=== PATIENT | male | born 1945 | race Caucasian/White ===

== ENCOUNTER 2018-03-26 20:50 | Observation (INO) ==
[2018-03-26 21:30] LABS: Basophils % 0.6 % (0.1-2.0); Eosinophils # 0.5 K/mm3 (0.0-0.4); Hematocrit 46.9 % (42.0-52.0); Hemoglobin 14.8 g/dL (14.1-18.0); Lymphocytes # 2.1 K/mm3 (0.7-4.5); Lymphocytes % 27.6 K/mm3 (10-50); Mean Corpuscular HGB Conc 31.5 g/dL (31.8-35.4); Mean Corpuscular Hemoglobin 30.5 pg (27.0-31.2); Mean Corpuscular Volume 96.8 fl (80-94); Mean Platelet Volume 7.5 fl (7.4-10.4); Monocytes # 0.7 K/mm3 (0.1-1.0); Monocytes % 9.7 % (1.7-9.3); Neutrophils # 4.3 K/mm3 (1.8-7.8); Neutrophils % 56.2 % (37.0-80.0); Platelet Count 311 K/mm3 (142-424); Red Blood Count 4.84 M/mm3 (4.60-6.20); Red Cell Distribution Width 13.3 % (11.5-17.5); White Blood Count 7.7 K/mm3 (4.8-10.8)
[2018-03-26 21:59] LABS: Microscopic, Urine URINE MICROSCOPIC (MICROSCOPIC)
[2018-03-26 21:59] LABS: Carbon Dioxide 27 mmol/L (21.0-32.0); Chloride 102 mmol/L (98-107); Creatine Kinase 106 U/L (39-308); Sodium 139 mmol/L (136-145)
[2018-03-26 22:00] LABS: Acetaminophen 0 ug/mL (10-30); Alanine Aminotransferase 36 U/L (12-78); Albumin Level 3.4 gm/dL (3.4-5.0); Albumin/Globulin Ratio 0.8 (1.1-1.8); Alkaline Phosphatase 178 U/L (46-116); Aspartate Amino Transferase 25 U/L (15-37); Bilirubin,Total 0.4 mg/dL (0.2-1.0); Blood Urea Nitrogen 21 mg/dL (7-18); Calcium 8.8 mg/dL (8.5-10.1); Ethyl Alcohol 0 mg/dL (0-99); Globulin 4.1 gm/dl (1.3-3.2); Glucose 139 mg/dL (74-106); Total Protein,Serum 7.5 gm/dL (6.4-8.2)
[2018-03-26 22:07] LABS: Amphetamine/Metha Screen,Urine Negative ng/mL (<1000); Barbiturates Screen,Urine Negative ng/mL (<200); Benzodiazepines Screen,Urine Positive ng/mL (200); Cannabinoid Screen,Urine Positive ng/mL (<50); Cocaine Screen,Urine Negative ng/g (<300); Methadone Screen,Urine Negative ng/mL (<300); Opiate Screen,Urine Negative ng/mL (<300); Phencyclidine Screen,Urine Negative ng/mL (<25)
[2018-03-26 22:09] LABS: Appearance,Urine CLEAR (Clear); Bilirubin,Urine Negative (Negative); Blood, Urine Negative (Negative); Color,Urine YELLOW (Yellow); Glucose,Urine (UA) Negative (Negative); Ketones,Urine Negative (Negative); Leukocyte Esterase,Urine Negative (Negative); PH,Urine 6.5 (5.0-8.5); Protein,Urine Negative (Negative); RBC,Urine Occasional #/hpf (0-3); Urobilinogen,Urine 0.2 EU/dl (0.2); WBC,Urine Occasional #/hpf (0-3)
[2018-03-26 22:10] LABS: Bacteria,Urine 1+ /lpf
[2018-03-26 23:14] LABS: Free T4 (Free Thyroxine) 1.01 ng/dl (0.76-1.46); Thyroid Stimulating Hormone 1.91 uIU/ml (0.358-3.740)
[2018-03-27 06:20] LABS: Eosinophils # 0.2 K/mm3 (0.0-0.4); Lymphocytes # 1.4 K/mm3 (0.7-4.5); Monocytes # 0.5 K/mm3 (0.1-1.0); White Blood Count 6.5 K/mm3 (4.8-10.8)
--- NOTE | 2018-03-27 06:27 | History & Physical Report ---
*Admission Date: 03/26/18 *Chief complaint: Mental status changes/confusion *History of present illness: 72-year-old white male with minimal past medical history who presented to the hospital after 7 hours of increasing lesion and lethargy, brought in by his . He and his had been to [place] with her daughter attending a tertiary care cancer center for their daughter's follow-up, and they returned earlier this week and he began to feel ill, with viral symptoms. He has been taking some [id number]-cxoqfid cough and cold products with Sudafed-containing ingredients, and has progressively felt tired and sluggish. His went to a community event last night, and when she returned home he was "out of it" and was minimally arousable. Brought to the emergency department. He states that he does not remember about 7 hours yesterday. In the emergency department he began to feel better with IV fluids. Noted to have minimal creatinine elevation. Admitted to hospital for further observation. CT scan of head was reportedly normal. Other labs unremarkable although UDS does show THC, addition to his benzodiazepine which seems to reflect his prescribed alprazolam which he has used for many years. [facility] History Medical History: Reports:: Coronary Artery Disease, Hypertension, MRSA Denies:: Cancer, Diabetes Mellitus Type 1, Diabetes Mellitus Type 2 Other Medical History: Reports: Thyroid Disease Other Surgeries: Yes: Other (BIOPSY VOCAL CHORD) Amputation: No Fractures: No - *Social History Educational Level: Completed Graduate School Smoking Status: Never smoker Alcohol Intake: current Alcohol Intake Frequency:: a few times a week Occupational Status: unemployed Housing: house Household Members: significant other - Psychiatric History Expresses thoughts of harming self/others: None Suicide Plan Description: No Plan *Family Hx:: Asthma, Coronary Artery Disease, Heart Attack, Hyperlipidemia, Hypertension, Stroke, Thyroid Disorder Review of Systems - Constitutional Reports daytime sleepiness, Reports lack of energy, Denies anorexia, Denies body ache(s), Denies chills - Eyes Denies blind spots, Denies blurry vision, Denies change in vision - ENT Denies abnormal hearing, Denies change in voice - *Cardiovascular Denies chest pain, Denies chest pain at rest, Denies shortness of breath, Denies shortness of breath with activity, Denies irregular heart rhythm - *Respiratory Reports chest congestion, Reports cough, Denies change in phlegm color, Denies shortness of breath, Denies shortness of breath with activity, Denies excessive phlegm production - *Gastrointestinal Denies abdominal pain, Denies belching, Denies bloating - *Genitourinary Denies difficulty urinating - *Musculoskeletal Denies abnormal walking - Integumentary/Breasts Denies bleeding lesions - *Neurologic Reports confusion, Reports weakness, Denies localized weakness, Denies headache( s), Denies seizure-like activity Meds Home Medications Medication Instructions Recorded Confirmed Type ALPRAZolam [Xanax 0.5mg tab] 0.5 mg PO BIDP PRN 03/26/18 03/27/18 History hydroCHLOROthiazide [HCTZ 12.5mg 12.5 mg PO DAILY 03/26/18 03/27/18 History capsule] Levothyroxine Sodium 75 mcg PO DAILY 03/27/18 03/27/18 History [Levothyroxine 75mcg (0.075mg) Tab] dilTIAZem HCl [Diltiazem 240mg 240 mg PO DAILY 03/27/18 03/27/18 History 24Hr ER Cap] Allergies Allergy/AdvReac Type Severity Reaction Status Date / Time No Known Allergies Allergy Verified 03/26/18 20:57 Exam Vital signs and Labs for Last 24 Hours: Temp Pulse Resp BP Pulse Ox 97 F L 81 20 121/81 91 L 03/26/18 22:57 03/26/18 22:57 03/26/18 22:57 03/26/18 22:57 03/26/18 22:52 Laboratory Results - last 24 hr 03/26/18 21:00: WBC 7.7, RBC 4.84, Hgb 14.8, Hct 46.9, MCV 96.8 H, MCH 30.5, MCHC 31.5 L, RDW 13.3, Plt Count 311, MPV 7.5, Neut % (Auto) 56.2, Lymph % (Auto ) 27.6, [place] % (Auto) 9.7 H, Eos % (Auto) 6.0, Baso % (Auto) 0.6, Neut # (Auto) 4.3, Lymph # (Auto) 2.1, [place] # (Auto) 0.7, Eos # (Auto) 0.5 H, Baso # (Auto) 0.0 03/26/18 21:00: Sodium 139, Potassium 4.0, Chloride 102, Carbon Dioxide 27, Anion Gap 14.0, BUN 21 H, Creatinine 1.60 H, Estimated Creat Clear 55, Estimated GFR 43 L, Est GFR ( Amer) 52 L, Glucose 139 H, Calcium 8.8, Total Bilirubin 0.4, AST 25, ALT 36, Alkaline Phosphatase 178 H, Total Creatine Kinase 106, CK-MB (CK-2) 1.2, CK-MB (CK-2) Rel Index 1.1, Troponin I < 0.02, Total Protein 7.5, Albumin 3.4, Globulin 4.1 H, Albumin/Globulin Ratio 0.8 L, Salicylates 5.0, Acetaminophen 0 L, Plasma/Serum Alcohol 0 03/26/18 21:00: Lactic Acid 0.9 03/26/18 21:00: TSH 1.91, Free T4 1.01 03/26/18 21:55: Urine Color Yellow, Urine Appearance Clear, Urine pH 6.5, Ur Specific [place] 1.020, Urine Protein Negative, Urine Glucose (UA) Negative, Urine Ketones Negative, Urine Blood Negative, Urine Nitrate Negative, Urine Bilirubin Negative, Urine Urobilinogen 0.2, Ur Leukocyte Esterase Negative, Urine RBC Occasional, Urine WBC Occasional, Ur Squamous Epith Cells 3-5, Urine Bacteria 1+, Hyaline Casts 3-5 03/26/18 21:55: Urine Opiates Screen Negative, Ur Barbituates Screen Negative, Ur Phencyclidine Scrn Negative, Ur Amphetamines Screen Negative, U Methamphetamines Scrn Negative, U Benzodiazepines Scrn Positive H, Urine Cocaine Screen Negative, U Marijuana (THC) Screen Positive H 03/26/18 23:55: Troponin I < 0.02 03/27/18 02:10: Troponin I < 0.02 I & O for Last 24 hours: Intake & Output 03/24/18 03/25/18 03/26/18 03/27/18 11:59 11:59 11:59 11:59 Intake Total 1000 / 1000 Balance 1000 / 1000 Weight 200 lb Narrative: This morning patient is awake, pleasant. Oriented 3. Cranial nerves intact. Patient does have nasal drainage and hoarseness consistent with upper respiratory infection. Lungs are clear, heart rate regular. Abdomen soft and nontender. No edema or clubbing. Moves all extremities well. No skin rash. Neck is supple. Negative Kernig's and Brudzinski's sign H&P: Result - Labs Labs: Short CBC 03/26/18 Range/Units 21:00 WBC 7.7 (4.8-10.8) K/mm3 Hgb 14.8 (14.1-18.0) g/dL Hct 46.9 (42.0-52.0) % Plt Count 311 (142-424) K/mm3 BMP 03/26/18 21:00 Sodium 139 Potassium 4.0 Chloride 102 Carbon Dioxide 27 BUN 21 H Creatinine 1.60 H Glucose 139 H Calcium 8.8 Cardiac Enzymes 03/26/18 03/26/18 03/27/18 Range/Units 21:00 23:55 02:10 Total Creatine Kinase 106 (39-308) U/L CK-MB (CK-2) 1.2 (0.0-3.6) ng/ml Troponin I < 0.02 < 0.02 < 0.02 (0.00-0.06) ng/ml Liver Function 03/26/18 Range/Units 21:00 Total Bilirubin 0.4 (0.2-1.0) mg/dL AST 25 (15-37) U/L ALT 36 (12-78) U/L Alkaline Phosphatase 178 H (46-116) U/L Albumin 3.4 (3.4-5.0) gm/dL Urine 03/26/18 Range/Units 21:55 Urine Color Yellow (Yellow) Urine Appearance Clear (Clear) Urine pH 6.5 (5.0-8.5) Ur Specific [place] 1.020 (1.005-1.030) Urine Protein Negative (Negative) Urine Glucose (UA) Negative (Negative) Assessment and Plan (1) Altered mental status Current visit: Yes Status: Acute Qualifiers: Altered mental status type: unspecified Qualified Code(s): R41.82 - Altered mental status, unspecified Category: Medical Code(s): R41.82 - Altered mental status, unspecified (2) Renal insufficiency Current visit: Yes Status: Acute Category: Medical Code(s): N28.9 - Disorder of kidney and ureter, unspecified - Assessment and plan all Dx Assessment and Plan for all problems:: Probably a combination of OTC cold medications, dehydration and URI symptoms. Await final report for CT scan. Await labs this morning. I have not discussed patient's THC positivity with him. His is currently in the room. I will bring this up before discharge.
[2018-03-27 06:32] LABS: Basophils % 0.4 % (0.1-2.0); Eosinophils % 2.9 % (0.1-12.0); Hematocrit 41.9 % (42.0-52.0); Hemoglobin 13.2 g/dL (14.1-18.0); Lymphocytes % 21.8 K/mm3 (10-50); Mean Corpuscular HGB Conc 31.5 g/dL (31.8-35.4); Mean Corpuscular Hemoglobin 30.9 pg (27.0-31.2); Mean Corpuscular Volume 98.1 fl (80-94); Mean Platelet Volume 7.6 fl (7.4-10.4); Monocytes % 7.7 % (1.7-9.3); Neutrophils # 4.4 K/mm3 (1.8-7.8); Neutrophils % 67.2 % (37.0-80.0); Platelet Count 267 K/mm3 (142-424); Red Blood Count 4.27 M/mm3 (4.60-6.20); Red Cell Distribution Width 13.2 % (11.5-17.5)
[2018-03-27 06:34] LABS: Anion Gap 16.5 mEq/L (5-15); Potassium 4.5 mmoL/L (3.5-5.1)
--- NOTE | 2018-03-27 09:21 | Pharmacy Consult Notes ---
[facility] Pharmacy VTE Monitoring - Patient Demographics Admission date: 03/27/18 Report Date: 03/27/18 Time: 09:21 Allergies/Adverse Reactions: Patient Allergies No Known Allergies Allergy (Verified 03/26/18 20:57) Height: 1.88 m Weight: 90.718 kg Patient Problems: Current Active Problems Altered mental status (Acute) Renal insufficiency (Acute) RBBB (right bundle branch block with left anterior fascicular block) (Acute) - VTE Risk Labs: VTE Related Lab Results Hgb 13.2 g/dL (14.1-18.0) L D 03/27/18 05:45 Hct 41.9 % (42.0-52.0) L 03/27/18 05:45 Plt Count 267 K/mm3 (142-424) 03/27/18 05:45 BUN 19 mg/dL (7-18) H 03/27/18 05:45 Creatinine 1.22 mg/dL (0.70-1.30) D 03/27/18 05:45 Estimated Creat Clear 72 mL/min (0-300) 03/27/18 05:45 VTE Risk Level: Low Risk - Prophylaxis Location of Applied Device: Bilateral Lower Extremeties (ELEANOR HOSE ORDERED)
[2018-03-27 16:18] VITALS: BP 126/76
--- NOTE | 2018-03-27 16:24 | Discharge Summary ---
General - General Admission date:: 03/26/18 Discharge date: 03/27/18 HPI HPI: 72-year-old white male with minimal past medical history who presented to the hospital after 7 hours of increasing lesion and lethargy, brought in by his . He and his had been to [place] with her daughter attending a tertiary care cancer center for their daughter's follow-up, and they returned earlier this week and he began to feel ill, with viral symptoms. He has been taking some [id number] cough and cold products with Sudafed-containing ingredients, and has progressively felt tired and sluggish. His went to a community event last night, and when she returned home he was "out of it" and was minimally arousable. Brought to the emergency department. He states that he does not remember about 7 hours yesterday. In the emergency department he began to feel better with IV fluids. Noted to have minimal creatinine elevation. Admitted to hospital for further observation. CT scan of head was reportedly normal. Other labs unremarkable although UDS does show THC, addition to his benzodiazepine which seems to reflect his prescribed alprazolam which he has used for many years. Hospital Course Hospital Course: Patient did well overnight after hydration. Creatinine improved to 1.2. Orthostatic vital signs were normal. Patient felt much better. Discharge exam noted as below. Patient will be discharged home, follow-up in my office in 48 hours with repeat labs. We will discuss his positive test for THC at that point. Objective Vital signs: Temp Pulse Resp BP Pulse Ox 98.1 F 69 16 126/76 95 03/27/18 12:08 03/27/18 16:00 03/27/18 16:00 03/27/18 16:00 03/27/18 16:00 Narrative: Patient is alert, oriented 3. Lungs are clear, some congested noted but no fevers. Oropharynx clear. Heart rate regular without murmurs. Moves arms and legs well. Not orthostatic. Walks well and without stumbling or ataxia per nurses report. Results Labs on day of discharge: Labs from last 24 hours 03/27/18 03/27/18 03/27/18 05:45 05:45 05:45 WBC 6.5 RBC 4.27 L Hgb 13.2 L D Hct 41.9 L MCV 98.1 H MCH 30.9 MCHC 31.5 L RDW 13.2 Plt Count 267 MPV 7.6 Neut % (Auto) 67.2 Lymph % (Auto) 21.8 [place] % (Auto) 7.7 Eos % (Auto) 2.9 Baso % (Auto) 0.4 Neut # (Auto) 4.4 Lymph # (Auto) 1.4 [place] # (Auto) 0.5 Eos # (Auto) 0.2 Baso # (Auto) 0.0 Sodium 146 H Potassium 4.5 Chloride 107 Carbon Dioxide 27 Anion Gap 16.5 H BUN 19 H Creatinine 1.22 D Estimated Creat Clear 72 Estimated GFR 59 Est GFR ( Amer) 71 D Glucose 102 D Lactic Acid Calcium Magnesium 2.2 Total Bilirubin AST ALT Alkaline Phosphatase Total Creatine Kinase CK-MB (CK-2) CK-MB (CK-2) Rel Index Troponin I < 0.02 Total Protein Albumin Globulin Albumin/Globulin Ratio TSH Free T4 Urine Color Urine Appearance Urine pH Ur Specific [place] Urine Protein Urine Glucose (UA) Urine Ketones Urine Blood Urine Nitrate Urine Bilirubin Urine Urobilinogen Ur Leukocyte Esterase Urine RBC Urine WBC Ur Squamous Epith Cells Urine Bacteria Hyaline Casts Salicylates Urine Opiates Screen Acetaminophen Ur Barbituates Screen Ur Phencyclidine Scrn Ur Amphetamines Screen U Methamphetamines Scrn U Benzodiazepines Scrn Urine Cocaine Screen U Marijuana (THC) Screen Plasma/Serum Alcohol 03/27/18 03/26/18 03/26/18 02:10 23:55 21:55 WBC RBC Hgb Hct MCV MCH MCHC RDW Plt Count MPV Neut % (Auto) Lymph % (Auto) [place] % (Auto) Eos % (Auto) Baso % (Auto) Neut # (Auto) Lymph # (Auto) [place] # (Auto) Eos # (Auto) Baso # (Auto) Sodium Potassium Chloride Carbon Dioxide Anion Gap BUN Creatinine Estimated Creat Clear Estimated GFR Est GFR ( Amer) Glucose Lactic Acid Calcium Magnesium Total Bilirubin AST ALT Alkaline Phosphatase Total Creatine Kinase CK-MB (CK-2) CK-MB (CK-2) Rel Index Troponin I < 0.02 < 0.02 Total Protein Albumin Globulin Albumin/Globulin Ratio TSH Free T4 Urine Color Urine Appearance Urine pH Ur Specific [place] Urine Protein Urine Glucose (UA) Urine Ketones Urine Blood Urine Nitrate Urine Bilirubin Urine Urobilinogen Ur Leukocyte Esterase Urine RBC Urine WBC Ur Squamous Epith Cells Urine Bacteria Hyaline Casts Salicylates Urine Opiates Screen Negative Acetaminophen Ur Barbituates Screen Negative Ur Phencyclidine Scrn Negative Ur Amphetamines Screen Negative U Methamphetamines Scrn Negative U Benzodiazepines Scrn Positive H Urine Cocaine Screen Negative U Marijuana (THC) Screen Positive H Plasma/Serum Alcohol 03/26/18 03/26/18 03/26/18 21:55 21:00 21:00 WBC RBC Hgb Hct MCV MCH MCHC RDW Plt Count MPV Neut % (Auto) Lymph % (Auto) [place] % (Auto) Eos % (Auto) Baso % (Auto) Neut # (Auto) Lymph # (Auto) [place] # (Auto) Eos # (Auto) Baso # (Auto) Sodium Potassium Chloride Carbon Dioxide Anion Gap BUN Creatinine Estimated Creat Clear Estimated GFR Est GFR ( Amer) Glucose Lactic Acid 0.9 Calcium Magnesium Total Bilirubin AST ALT Alkaline Phosphatase Total Creatine Kinase CK-MB (CK-2) CK-MB (CK-2) Rel Index Troponin I Total Protein Albumin Globulin Albumin/Globulin Ratio TSH 1.91 Free T4 1.01 Urine Color Yellow Urine Appearance Clear Urine pH 6.5 Ur Specific [place] 1.020 Urine Protein Negative Urine Glucose (UA) Negative Urine Ketones Negative Urine Blood Negative Urine Nitrate Negative Urine Bilirubin Negative Urine Urobilinogen 0.2 Ur Leukocyte Esterase Negative Urine RBC Occasional Urine WBC Occasional Ur Squamous Epith Cells 3-5 Urine Bacteria 1+ Hyaline Casts 3-5 Salicylates Urine Opiates Screen Acetaminophen Ur Barbituates Screen Ur Phencyclidine Scrn Ur Amphetamines Screen U Methamphetamines Scrn U Benzodiazepines Scrn Urine Cocaine Screen U Marijuana (THC) Screen Plasma/Serum Alcohol 03/26/18 03/26/18 21:00 21:00 WBC 7.7 RBC 4.84 Hgb 14.8 Hct 46.9 MCV 96.8 H MCH 30.5 MCHC 31.5 L RDW 13.3 Plt Count 311 MPV 7.5 Neut % (Auto) 56.2 Lymph % (Auto) 27.6 [place] % (Auto) 9.7 H Eos % (Auto) 6.0 Baso % (Auto) 0.6 Neut # (Auto) 4.3 Lymph # (Auto) 2.1 [place] # (Auto) 0.7 Eos # (Auto) 0.5 H Baso # (Auto) 0.0 Sodium 139 Potassium 4.0 Chloride 102 Carbon Dioxide 27 Anion Gap 14.0 BUN 21 H Creatinine 1.60 H Estimated Creat Clear 55 Estimated GFR 43 L Est GFR ( Amer) 52 L Glucose 139 H Lactic Acid Calcium 8.8 Magnesium Total Bilirubin 0.4 AST 25 ALT 36 Alkaline Phosphatase 178 H Total Creatine Kinase 106 CK-MB (CK-2) 1.2 CK-MB (CK-2) Rel Index 1.1 Troponin I < 0.02 Total Protein 7.5 Albumin 3.4 Globulin 4.1 H Albumin/Globulin Ratio 0.8 L TSH Free T4 Urine Color Urine Appearance Urine pH Ur Specific [place] Urine Protein Urine Glucose (UA) Urine Ketones Urine Blood Urine Nitrate Urine Bilirubin Urine Urobilinogen Ur Leukocyte Esterase Urine RBC Urine WBC Ur Squamous Epith Cells Urine Bacteria Hyaline Casts Salicylates 5.0 Urine Opiates Screen Acetaminophen 0 L Ur Barbituates Screen Ur Phencyclidine Scrn Ur Amphetamines Screen U Methamphetamines Scrn U Benzodiazepines Scrn Urine Cocaine Screen U Marijuana (THC) Screen Plasma/Serum Alcohol 0 DS: Diagnosis - Discharge Diagnosis (1) Altered mental status Status: Resolved (2) Renal insufficiency Status: Resolved Discharge Plan - Patient Discharge Instructions ACTIVITY: Continue current activity DIET: continue same diet - Follow up Plan Follow up with: Mervin Durand MD [Primary Care Provider] - 03/29/18 9:45 am Disposition: Home, Self-[facility] Medications: Home Medications Medication Instructions Recorded Confirmed Type ALPRAZolam [Xanax 0.5mg tab] 0.5 mg PO BIDP PRN 03/26/18 03/27/18 History hydroCHLOROthiazide [HCTZ 12.5mg 12.5 mg PO DAILY 03/26/18 03/27/18 History capsule] Levothyroxine Sodium 75 mcg PO DAILY 03/27/18 03/27/18 History [Levothyroxine 75mcg (0.075mg) Tab] dilTIAZem HCl [Diltiazem 240mg 240 mg PO DAILY 03/27/18 03/27/18 History 24Hr ER Cap] Prescriptions/Medication Reconciliation: Continue ALPRAZolam [Xanax 0.5mg tab] 0.5 mg PO BIDP PRN PRN Reason: Anxiety dilTIAZem HCl [Diltiazem 240mg 24Hr ER Cap] 240 mg PO DAILY Levothyroxine Sodium [Levothyroxine 75mcg (0.075mg) Tab] 75 mcg PO DAILY Discontinued hydroCHLOROthiazide [HCTZ 12.5mg capsule] 12.5 mg PO DAILY
== END 2018-03-27 17:15 | disposition home or self-care (01) ==
LOC: 2ND 20:50 → ER 20:50 → 2ND 03-27 00:01
PROVIDERS: ADMIT Emergency Medicine; ATTEND Internal Medicine Adolescent Medicine
CPT/HCPCS: 36415; 70450; 71020; 71046; 80048; 80053; 80305; 80329; 81001; 82550; 82553; 83605; 83735; 84439; 84443; 84484; 85025; 87040; 93005; 96365; 99284; G0378

== ENCOUNTER → 2018-03-29 07:25 | Outpatient (CLI) | payer MEDICARE, SELFPAY ==
[2018-03-29 08:18] LABS: Basophils # 0.1 K/mm3 (0-0.2); Basophils % 0.8 % (0.1-2.0); Eosinophils # 0.4 K/mm3 (0.0-0.4); Eosinophils % 6.4 % (0.1-12.0); Hematocrit 48.1 % (42.0-52.0); Hemoglobin 15.2 g/dL (14.1-18.0); Lymphocytes # 1.7 K/mm3 (0.7-4.5); Lymphocytes % 25.2 K/mm3 (10-50); Mean Corpuscular HGB Conc 31.6 g/dL (31.8-35.4); Mean Corpuscular Hemoglobin 31.2 pg (27.0-31.2); Mean Corpuscular Volume 98.8 fl (80-94); Mean Platelet Volume 7.3 fl (7.4-10.4); Monocytes # 0.5 K/mm3 (0.1-1.0); Neutrophils # 4.1 K/mm3 (1.8-7.8); Neutrophils % 60.6 % (37.0-80.0); Platelet Count 324 K/mm3 (142-424); Red Blood Count 4.87 M/mm3 (4.60-6.20); White Blood Count 6.8 K/mm3 (4.8-10.8)
[2018-03-29 08:55] LABS: Alanine Aminotransferase 36 U/L (12-78); Albumin Level 3.5 gm/dL (3.4-5.0); Albumin/Globulin Ratio 0.9 (1.1-1.8); Alkaline Phosphatase 167 U/L (46-116); Anion Gap 12.4 mEq/L (5-15); Aspartate Amino Transferase 25 U/L (15-37); Bilirubin,Total 0.3 mg/dL (0.2-1.0); Blood Urea Nitrogen 21 mg/dL (7-18); Calcium 9.2 mg/dL (8.5-10.1); Carbon Dioxide 30 mmol/L (21.0-32.0); Chloride 105 mmol/L (98-107); Chol/HDL Ratio 4.8 (1-3.5); Cholesterol 210 mg/dL (140-200); Creatinine,Serum 1.19 mg/dL (0.70-1.30); Estimated Glomerular Filt Rate 60 ml/min (>60); GFR (African American) 73 ML/MIN (>60); Globulin 3.7 gm/dl (1.3-3.2); Glucose 88 mg/dL (74-106); HDL Cholesterol 44 mg/dL (27-67); LDL Cholesterol 149 mg/dL (0-130); Potassium 4.4 mmoL/L (3.5-5.1); Sodium 143 mmol/L (136-145); Total Protein,Serum 7.2 gm/dL (6.4-8.2); Triglycerides 84 mg/dL (30-200); VLDL Cholesterol 17 mg/dL (0-40)
== END ==
PROVIDERS: Visit Provider Internal Medicine Adolescent Medicine
DX: N17.9 Acute kidney failure, unspecified (principal); E78.5 Hyperlipidemia, unspecified
CPT/HCPCS: 36415; 80053; 80061; 85025

== ENCOUNTER → 2018-04-06 09:58 | Outpatient (CLI) | payer MEDICARE, SELFPAY ==
--- NOTE | 2018-04-06 10:00 | CA_ITS ---
PROCEDURE: 2-D M-mode and color Doppler study INDICATIONS FOR THE TEST: Chest pain COPD Heart Murmur Tobacco Smoking Palpitations Fatigue Syncope Edema Hypertension Diabetes Mellitus Rheumatic Fever SOB [place] Obesity Hyperlipidemia+ Family History HD Additional History PATIENT INFORMATION HEIGHT:73 WEIGHT:198 GENDER: Male B/P:132/84 2-D/M-MODE INTERPRETATION: 2-D MEASUREMENTS OBSERVED VALUES IN CMS Right Ventricular Dimension (RVDd) 2.8 Interventricular Septum (Thickness)(IVsd) 1.4 Left Ventricular Internal Dimensions(LVIDd) 5.0 Left Ventricular Posterior Wall (Thickness)(LVPWd) 1.0 Aortic Root 3.3 Aortic Cusp Separation 1.8 Left Atrial Dimensions (LAD) 4.1 2D 1. Left atrium is mildly enlarged, left ventricle is normal size, mild concentric left ventricular hypertrophy, visually estimated ejection fraction 55% with no obvious regional wall motion abnormality. 2. The right atrium and right ventricle are mildly enlarged with normal contractility. 3. The aortic valve is minimally thickened and fibrosed. 4. The mitral and tricuspid valve leaflets are minimally thickened. 5. The pulmonic valve is poorly visualized. 6. No significant pericardial effusion noted. DOPPLER INTERROGATION: Doppler interrogation of the aortic, mitral and tricuspid valvular presence of mild mitral and tricuspid regurgitation, tricuspid regurgitant jet velocity is insufficient for calculation of the right ventricular systolic pressure, grade 1 diastolic dysfunction seen without tissue Doppler evidence of raised left atrial pressure. CONCLUSION: 1. Mild biatrial enlargement, normal left ventricular size, mild concentric left ventricular hypertrophy, visually estimated ejection fraction of 55% no signal wall motion abnormality, grade 1 diastolic dysfunction seen without tissue Doppler evidence of raised left atrial pressure. 2. Mildly enlarged right ventricle with normal contractility. 3. Mild mitral and tricuspid regurgitation, tricuspid and jet velocity is insufficient for calculation of the right ventricular systolic pressure. 4. No significant pericardial effusion noted.
== END ==
PROVIDERS: PCP Internal Medicine Adolescent Medicine; Visit Provider Internal Medicine Cardiovascular Disease
DX: I45.2 Bifascicular block (principal); N28.9 Disorder of kidney and ureter, unspecified; R94.31 Abnormal electrocardiogram [ECG] [EKG]; E78.4 Other hyperlipidemia
CPT/HCPCS: 93306

== ENCOUNTER → 2018-04-14 07:35 | Outpatient (CLI) | payer MEDICARE, SELFPAY ==
[2018-04-14 08:29] LABS: Alanine Aminotransferase 45 U/L (12-78); Albumin Level 3.9 gm/dL (3.4-5.0); Alkaline Phosphatase 147 U/L (46-116); Anion Gap 10.9 mEq/L (5-15); Aspartate Amino Transferase 32 U/L (15-37); Bilirubin,Direct 0.1 mg/dL (0.0-0.2); Bilirubin,Indirect 0.4 mg/dL (0.0-0.9); Bilirubin,Total 0.5 mg/dL (0.2-1.0); Blood Urea Nitrogen 20 mg/dL (7-18); Calcium 9.4 mg/dL (8.5-10.1); Carbon Dioxide 30 mmol/L (21.0-32.0); Chloride 102 mmol/L (98-107); Chol/HDL Ratio 4.7 (1-3.5); Cholesterol 255 mg/dL (140-200); Creatinine,Serum 1.25 mg/dL (0.70-1.30); Estimated Glomerular Filt Rate 57 ml/min (>60); GFR (African American) 69 ML/MIN (>60); Glucose 98 mg/dL (74-106); HDL Cholesterol 54 mg/dL (27-67); LDL Cholesterol 179 mg/dL (0-130); Potassium 3.9 mmoL/L (3.5-5.1); Sodium 139 mmol/L (136-145); Total Protein,Serum 7.7 gm/dL (6.4-8.2); Triglycerides 110 mg/dL (30-200); VLDL Cholesterol 22 mg/dL (0-40)
== END ==
PROVIDERS: PCP Internal Medicine Adolescent Medicine; Visit Provider Internal Medicine Cardiovascular Disease
DX: E78.4 Other hyperlipidemia (principal); I51.9 Heart disease, unspecified; I99.8 Other disorder of circulatory system
CPT/HCPCS: 36415; 80048; 80061; 80076

== ENCOUNTER → 2018-07-20 16:24 | Outpatient (CLI) | payer MEDICARE, SELFPAY ==
--- NOTE | 2018-07-20 16:30 | XR_ITS ---
XR chest 2V HISTORY: ITS.REASON: COUGH ORDERING PHYSICIAN: Lam Pope MD PATIENT AGE: 73 years COMPARISON: None FINDINGS: The cardiomediastinal silhouette and pulmonary vascularity are within normal limits. There is hyperinflation with attenuation of the peripheral pulmonary vessels suggesting COPD. No lobar consolidation or collapse is evident. Centrally, the left lower lobe has an unremarkable appearance. No acute bony anomalies. IMPRESSION: COPD, no acute finding
== END ==
PROVIDERS: PCP Internal Medicine Adolescent Medicine; Visit Provider Internal Medicine Adolescent Medicine
DX: R05 Cough (principal)
CPT/HCPCS: 71046

== ENCOUNTER → 2018-09-24 08:16 | Outpatient (CLI) | payer MEDICARE, SELFPAY ==
[2018-09-24 09:47] LABS: Alanine Aminotransferase 45 U/L (12-78); Albumin Level 3.6 gm/dL (3.4-5.0); Albumin/Globulin Ratio 1.1 (1.1-1.8); Alkaline Phosphatase 95 U/L (46-116); Anion Gap 12.3 mEq/L (5-15); Aspartate Amino Transferase 24 U/L (15-37); Bilirubin,Total 0.4 mg/dL (0.2-1.0); Blood Urea Nitrogen 20 mg/dL (7-18); Calcium 8.8 mg/dL (8.5-10.1); Carbon Dioxide 29 mmol/L (21.0-32.0); Chloride 104 mmol/L (98-107); Chol/HDL Ratio 4.8 (1-3.5); Cholesterol 248 mg/dL (140-200); Creatinine,Serum 1.18 mg/dL (0.70-1.30); Estimated Glomerular Filt Rate 61 ml/min (>60); GFR (African American) 74 ML/MIN (>60); Globulin 3.4 gm/dl (1.3-3.2); Glucose 107 mg/dL (74-106); HDL Cholesterol 52 mg/dL (27-67); LDL Cholesterol 175 mg/dL (0-130); Potassium 4.3 mmoL/L (3.5-5.1); Sodium 141 mmol/L (136-145); Thyroid Stimulating Hormone 2.66 uIU/ml (0.358-3.740); Triglycerides 103 mg/dL (30-200); VLDL Cholesterol 21 mg/dL (0-40)
== END ==
PROVIDERS: PCP Internal Medicine Adolescent Medicine; Visit Provider Internal Medicine Adolescent Medicine
DX: E78.5 Hyperlipidemia, unspecified (principal); E03.9 Hypothyroidism, unspecified
CPT/HCPCS: 36415; 80053; 80061; 84443

== ENCOUNTER → 2018-11-04 11:10 | Outpatient (CLI) | payer MEDICARE, SELFPAY ==
[2018-11-04 12:22] LABS: Alanine Aminotransferase 49 U/L (12-78); Albumin Level 3.8 gm/dL (3.4-5.0); Albumin/Globulin Ratio 1.2 (1.1-1.8); Alkaline Phosphatase 107 U/L (46-116); Anion Gap 13.6 mEq/L (5-15); Aspartate Amino Transferase 29 U/L (15-37); Bilirubin,Total 0.5 mg/dL (0.2-1.0); Blood Urea Nitrogen 24 mg/dL (7-18); Calcium 8.9 mg/dL (8.5-10.1); Carbon Dioxide 30 mmol/L (21.0-32.0); Chloride 99 mmol/L (98-107); Estimated Glomerular Filt Rate 50 ml/min (>60); GFR (African American) 60 ML/MIN (>60); Globulin 3.3 gm/dl (1.3-3.2); Glucose 116 mg/dL (74-106); Potassium 4.6 mmoL/L (3.5-5.1); Sodium 138 mmol/L (136-145); Total Protein,Serum 7.1 gm/dL (6.4-8.2)
== END ==
PROVIDERS: Visit Provider Internal Medicine Adolescent Medicine
DX: M79.10 Myalgia, unspecified site (principal)
CPT/HCPCS: 36415; 80053

== ENCOUNTER → 2018-11-08 09:46 | Outpatient (CLI) | payer MEDICARE, SELFPAY ==
[2018-11-08 10:35] VITALS: PULSE 68; PULSE 70
== END ==
PROVIDERS: PCP Internal Medicine Adolescent Medicine; Visit Provider Nurse Practitioner Family
DX: J40 Bronchitis, not specified as acute or chronic (principal)
CPT/HCPCS: 94060; 94640; 94726; 94729

== ENCOUNTER → 2018-11-23 15:26 | Outpatient (POV) | payer MEDICARE, SELFPAY | PROVIDERS: Visit Provider Internal Medicine | DX: Z00.00 Encounter for general adult medical examination without abnormal findings (principal) ==

== ENCOUNTER → 2019-05-31 15:21 | Outpatient (POV) | payer MEDICARE, SELFPAY | PROVIDERS: Visit Provider Internal Medicine | DX: Z00.00 Encounter for general adult medical examination without abnormal findings (principal) ==

== ENCOUNTER → 2019-08-23 15:06 | Outpatient (CLI) | payer MEDICARE, SELFPAY ==
--- NOTE | 2019-08-23 15:11 | XR_ITS ---
PROCEDURE: XR CHEST 2V CLINICAL HISTORY: COUGH Cough, congestion COMPARISON: CXR CHEST(2 VIEWS-NOT PORTABLE) from 03/22/2014 CXR2V XR chest 2V from 03/26/2018 CXR2V XR chest 2V from 07/20/2018 FINDINGS: The cardiomediastinal silhouette and pulmonary vascularity are within normal limits. Hyperinflation with attenuation of the peripheral pulmonary vessels consistent with COPD/small airway disease. No lobar consolidation or collapse. Degenerative changes right shoulder No acute bony abnormalities. IMPRESSION: Hyperinflation. No change with no acute finding Dictated by: Harsha Park MD 08/23/2019 15:42 Electronically signed by Harsha Park MD in [place] 08/23/2019 15:42
== END ==
PROVIDERS: PCP Internal Medicine Adolescent Medicine; Visit Provider Internal Medicine Adolescent Medicine
DX: R05 Cough (principal)
CPT/HCPCS: 71046

== ENCOUNTER → 2019-10-06 10:37 | Outpatient (CLI) | payer MEDICARE, SELFPAY ==
--- NOTE | 2019-10-06 10:42 | CA_ITS ---
APPROVED REPORT EXAM: Comprehensive 2D, Doppler, and color-flow Echocardiogram [employer]: Ester Post CRT Ht: 6 ft 2 in Wt: 190lbs BSA: 2.13 BP: 125/78 mmHg Indications: Pericarditis, abn echo, echo 09/09/19 55% EF 2D Dimensions LVOT 2.53 cm (M/F) 1.5-2.5 M-Mode Dimensions RVDd 2.74 cm (0.9-2.6) LVDd 5.18 cm (3.5-5.7) LVDs 4.46 cm (3.5-5.7) IVSd 0.91 cm (0.6-1.1) PWd 0.88 cm (0.6-1.1) EF (Teich) 29.50% FS 13.90% EDV (Teich) 128.40 mL ESV (Teich) 90.50 mL LV Diastology E/A Ratio 0.62 Mitral Valve MV A Velocity 63.00 (40-130 cm/s) Left Ventricle Left atrium is normal size, left ventricle is normal size, visually estimated ejection fraction 55%, there is abnormal septal motion. Doppler evidence of impaired LV relaxation seen. Right Ventricle Right atrium and right ventricular mildly enlarged with normal contractility. Aortic Valve Aortic valve is thickened and calcified leaflet chordae display good mobility. There is no aortic stenosis aortic insufficiency. Mitral Valve Mitral valve is grossly normal, there is mild mitral regurgitation. Tricuspid Valve Tricuspid valve is grossly normal, there is mild tricuspid regurgitation, tricuspid regurgitation jet loss is inadequate for calculation of the right ventricular systolic pressure. Pulmonic Valve Pulmonic valve is poorly visualized. Great Vessels Aortic root is normal size. Pericardium No significant pericardial effusion noted. Conclusion 1. Normal left ventricular size, preserved left ventricular systolic function, visually estimated ejection fraction 55% with no regional wall motion abnormality, there is abnormal septal motion. Doppler evidence of impaired LV relaxation seen. 2. Mildly enlarged right atrium and right ventricle, contractility of the right ventricle is normal. 3. Mild mitral and tricuspid regurgitation. 4. No significant pericardial effusion noted, inferior vena cava is normal size with normal inspiratory collapse 5. As compared to prior study the pericardial effusion has resolved, inferior vena cava is normal size with normal inspiratory collapse. However there is abnormal septal motion persist raising the concerns for presence of ventricular interdependence. 6. Noncontrast CT of the chest is recommended to assess the pericardial thickness. Electronically signed by : Silvestre Burton, 10/07/2019 13:33:40
== END ==
PROVIDERS: PCP Internal Medicine Adolescent Medicine; Visit Provider Internal Medicine Adolescent Medicine
DX: I31.3 Pericardial effusion (noninflammatory) (principal); R06.02 Shortness of breath; J90 Pleural effusion, not elsewhere classified; B33.20 Viral carditis, unspecified
CPT/HCPCS: 93306

== ENCOUNTER → 2019-10-13 13:07 | Outpatient (CLI) | payer MEDICARE, SELFPAY ==
--- NOTE | 2019-10-13 13:07 | CT_ITS ---
PROCEDURE: CT CHEST WO CON CLINICAL INDICATION: pericardial effusion/pleural effusion Pericarditis, shortness of air COMPARISON: CT ANGIO CHEST from 09/09/2019 TECHNIQUE: Axial images obtained with sagittal and coronal reformats. All CT scans at the facility use one or more dose reduction, viz: automated exposure control, ma/kV adjustment per patient size (including targeted exams where dose is matched to indication, i.e. head), or iterative reconstruction technique. FINDINGS: Scattered small nodes are present in the mediastinum. Scattered small lymph nodes are present. Previously noted pericardial thickening has shown improvement. There is mild thickening of the posterior pericardium at 7 mm. This previously measured up to 14 mm. Previously the pericardium anterior laterally measured 16 mm and now measures only 4-5 mm. There was a mildly prominent aortopulmonic lymph node previously noted which measure 2.7 x 1.3 cm now 1.3 x 0.9 cm. There are coronary artery calcifications present. There are centrilobular emphysematous changes. There is some scattered patchy ground-glass density in both lungs. This is nonspecific and could be inflammatory or infectious. A fissural nodule is present in the left upper lobe unchanged. Previously noted left pleural effusion has resolved. There is some aortic valvular calcification noted. There is some scarring in the right middle lobe. There is a 7 mm nodular opacity in the right upper lobe medially posterior to the right mainstem bronchus. Upper abdominal images show cholelithiasis IMPRESSION: 1. Interval improvement in the pericardial effusion and mediastinal adenopathy. 2. Centrilobular emphysema with scattered ground-glass densities of the lungs which could be inflammatory or infectious. 3. 7 mm right upper lobe nodule nonspecific. Recommend three month follow-up to confirm stability or resolution not readily apparent on the previous exam Dictated by: Harsha Park MD 10/15/2019 15:23 Electronically signed by Harsha Park MD in [place] 10/15/2019 15:23
== END ==
PROVIDERS: PCP Internal Medicine Adolescent Medicine; Visit Provider Internal Medicine Cardiovascular Disease
DX: E78.5 Hyperlipidemia, unspecified (principal); I45.2 Bifascicular block; I99.8 Other disorder of circulatory system; R53.83 Other fatigue; R94.31 Abnormal electrocardiogram [ECG] [EKG]; I50.32 Chronic diastolic (congestive) heart failure
CPT/HCPCS: 71250

== ENCOUNTER → 2019-10-28 06:21 | Outpatient (CLI) | payer MEDICARE, SELFPAY ==
--- NOTE | 2019-10-28 06:29 | CA_ITS ---
APPROVED REPORT Exam: Exercise Treadmill Technologist: Shabnam Marques Ht: 6 ft 1 in Wt: 195 lbs BSA: 2.13 m2 HR: 61 bpm BP: 143/77 mmHg Indications: CAD, ABn CT Medical History Medications: Escitalopram,,,,, SyMBICORT,,,,, Venlafaxine,,,,, DilTiazem,,,,, RoSUVASTATIN,,,,, Alpazolam,,,,, LevothROXINE,,,,, Allergies: No known drug allergies Cardiac Risk Factors: HTN, Hyperlipidemia, FHX of CAD Stress Test Details Test: Royal HR Resting HR: 76 bpm Max Heart Rate (APMHR): 148 bpm Max HR Achieved: 176 bpm Target HR (85% APMHR): 125 bpm % of APMHR: 118 Recovery HR: 84 bpm BP Resting BP: 143/77 mmHg Max BP: 158/77 mmHg Recovery BP: 148.0/82.0 mmHg ECG Resting ECG: Sinus with IVCD/RBBB Clinical Reason for Termination: Dyspnea Exercise duration: 09:00 min Highest Stage Achieved: Stage 3: 3.4 mph at 14% grade. Exercise capacity: 10.1 METs Stress ECG Conclusion Test stopped due to SOA. NO complaints of CP. No arrhythmia or ectopy. BBB preludes diagnostic interpretation. Non-Diagnostic due to BBB. Test Summary REST . . . . . . . Standing REST . . . . . . . Sitting REST 14:08 0.0 0.0 76 . 143/ 77 . . Stage 1 01:00 10.0 1.7 87 . . . . Stage 1 02:00 10.0 1.7 108 . . . . Stage 1 03:00 10.0 1.7 99 . . . . Stage 2 01:00 12.0 2.5 106 . 146/ 82 . . Stage 2 02:00 12.0 2.5 88 . 146/ 82 . . Stage 2 03:00 12.0 2.5 121 . 146/ 82 . . Stage 3 01:00 14.0 3.4 117 . 152/ 90 . . Stage 3 . . . . . . . Cardiolite injected Stage 3 02:00 14.0 3.4 126 . 152/ 90 . . Stage 3 03:00 14.0 3.4 144 . 152/ 90 . Stop exercise at 09:00 RECOVERY 01:00 0.0 0.0 126 . . . . RECOVERY 02:00 0.0 0.0 106 . . . . RECOVERY 03:00 0.0 0.0 89 . 158/ 77 . . RECOVERY 04:00 0.0 0.0 87 . 146/ 82 . . RECOVERY 05:00 0.0 0.0 84 . 146/ 82 . . RECOVERY 06:00 0.0 0.0 82 . 146/ 82 . . RECOVERY 06:53 0.0 0.0 84 . 146/ 82 . . Electronically signed by : Silvestre Burton, 10/28/2019 12:39:20
--- NOTE | 2019-10-28 06:29 | NM_ITS ---
APPROVED REPORT Exam: Nuclear Stress Test Indication: abn sherrie score, htn, hyperlipidemia, fm hx., fatique Patient Location: Outpatient [place] Tech:Juliane Francis ANNIE RT(R)(N) Ht: 6 ft 1 in Wt: 195 lbs HR: 61 bpm BP: 143/77 mmHg BSA: 2.13 m2 BMI: 25.7 History: abn sherrie score, htn, hyperlipidemia, fm hx., fatique Procedure: Patient exercised on Royal protocol 9:00 minutes and sec, resting heart rate 61 bpm, resting blood pressure 143/77 mmHg, with exercise maximum heart rate achived was 145 bpm which is Greater than 85 % of the maximum predicted heart rate and blood pressure was 158/77 mmHg. Test was stopped due to Shortness of breath . Patient denied any complaint of chest pain. Patient has Good exercise capacity, achieved 10.1 METs of workload on treadmill, the blood pressure response to exercise was Adequate. Electrocardiogram Resting electrocardiogram showed sinus rhythm right ventricular conduction delay, with exercise there is excessive baseline artifact, hence the EKG is not interpretable. Cardiac Stress and Resting SPECT Images: Cardiac Stress and Resting SPECT images were obtained using technetium 99m Myoview 31.0 mCi stress and 10.49 mCi at rest. Gated SPECT for analysis of segmental wall motion and calculation of the ejection fraction also done. Cardiac stress and resting SPECT images show uniform myocardial activity without segmental perfusion abnormality, computer derived ejection fraction is 64% with no regional wall motion abnormality, right ventricle is mildly enlarged with normal contractility. Conclusion: 1. The EKG portion of the exercise Myoview is nondiagnostic due to excessive baseline artifact, patient has good exercise capacity achieved 10.1 mets of workload on treadmill, the blood pressure response to exercise was adequate, there was no exercise-induced chest discomfort. 2. No scintigraphic evidence of reversible ischemia seen, computer derived ejection fraction is 64% with no regional wall motion abnormality, right ventricle is mildly enlarged with normal contractility. 3. Normal exercise Myoview study. Electronically signed by : Silvestre Burton, 10/28/2019 12:44:54
--- NOTE | 2019-10-28 09:36 | HMH.ITSHM ---
Current Home Medications as stated by this patient Lam Agosto or client relations representative. []levothyroxine crestor venlafaxine escitalopram diltiazem budesonide alprazolam
== END ==
PROVIDERS: PCP Internal Medicine Adolescent Medicine; Visit Provider Urology
DX: B33.20 Viral carditis, unspecified (principal); I11.9 Hypertensive heart disease without heart failure; I25.10 Atherosclerotic heart disease of native coronary artery without angina pectoris; I31.3 Pericardial effusion (noninflammatory)
CPT/HCPCS: 78452; 93017; A9502

== ENCOUNTER → 2019-11-04 12:08 | Outpatient (CLI) | payer MEDICARE, SELFPAY ==
[2019-11-04 13:27] LABS: C-Reactive Protein 1.1 mg/dL (0.0-0.9)
[2019-11-04 13:34] LABS: Erythrocyte Sedimentation Rate 19 mm/hr (0-20)
== END ==
PROVIDERS: Visit Provider Internal Medicine Cardiovascular Disease
DX: B33.20 Viral carditis, unspecified (principal); I11.9 Hypertensive heart disease without heart failure; I25.10 Atherosclerotic heart disease of native coronary artery without angina pectoris; I31.3 Pericardial effusion (noninflammatory); R50.9 Fever, unspecified
CPT/HCPCS: 36415; 85651; 86140

== ENCOUNTER → 2019-11-08 13:34 | Outpatient (CLI) | payer MEDICARE, SELFPAY ==
--- NOTE | 2019-11-08 13:34 | CA_ITS ---
APPROVED REPORT EXAM: Comprehensive 2D, Doppler, and color-flow Echocardiogram Cable Splicer Apprentice: Corin Garay RDCS Ht: 6 ft 0 in Wt: 201lbs BSA: 2.14 BP: 145/78 mmHg Indications: Pericarditis, CAD, Pleural Effusion, Hypertension/HDD 2D Dimensions LVOT 2.46 cm (M/F) 1.5-2.5 M-Mode Dimensions RVDd 2.38 cm (0.9-2.6) LVDd 5.77 cm (3.5-5.7) LVDs 4.76 cm (3.5-5.7) IVSd 1.01 cm (0.6-1.1) PWd 1.01 cm (0.6-1.1) EF (Teich) 36.00% FS 17.50% EDV (Teich) 164.60 mL ESV (Teich) 105.40 mL LV Diastology E/A Ratio 0.55 Mitral Valve MV A Velocity 57.00 (40-130 cm/s) Left Ventricle Left atrium is mildly enlarged, left ventricle is normal size, mild concentric left ventricular hypertrophy, visually estimated ejection fraction 55% with no regional wall motion abnormality. Grade 1 diastolic dysfunction seen without tissue Doppler evidence of raise left atrial pressure. Right Ventricle Right atrium and right ventricular mildly enlarged with normal contractility. Aortic Valve Aortic valve is thickened and calcified leaflet chordae display good mobility, there is no aortic stenosis or aortic insufficiency. Mitral Valve Mitral valve is minimally thickened, there is mild mitral regurgitation. Tricuspid Valve Tricuspid valve is grossly normal, there is mild tricuspid regurgitation, calculated right ventricular systolic pressure is 39 mmHg. Pulmonic Valve Pulmonic valve is poorly visualized. Great Vessels Aortic root is normal size. Pericardium No significant pericardial effusion noted. Conclusion 1. Mild mitral enlargement, normal left ventricular size, mild concentric left ventricular hypertrophy, visually estimated ejection fraction 55% with no regional wall motion abnormality, grade 1 diastolic dysfunction seen without tissue Doppler evidence of raise left atrial pressure. 2. Mildly enlarged right ventricle with normal contractility. 3. Mild mitral and tricuspid regurgitation, calculated right ventricular systolic pressure is 39 mmHg. 4. No significant pericardial effusion noted. Electronically signed by : Silvestre Burton, 11/08/2019 20:55:34
== END ==
PROVIDERS: PCP Internal Medicine Adolescent Medicine; Visit Provider Internal Medicine Cardiovascular Disease
DX: B33.20 Viral carditis, unspecified (principal); I31.3 Pericardial effusion (noninflammatory); R50.9 Fever, unspecified
CPT/HCPCS: 93306

== ENCOUNTER → 2020-03-02 07:50 | Outpatient (CLI) | payer MEDICARE, SELFPAY ==
--- NOTE | 2020-03-02 07:51 | CT_ITS ---
PROCEDURE: CT CHEST WO CON CLINICAL INDICATION: pericardial effusion Follow-up pericardial effusion, pulmonary nodule COMPARISON: CT CHEST WO CON from 10/13/2019 TECHNIQUE: Axial images obtained with sagittal and coronal reformats. All CT scans at the facility use one or more dose reduction, viz: automated exposure control, ma/kV adjustment per patient size (including targeted exams where dose is matched to indication, i.e. head), or iterative reconstruction technique. FINDINGS: HEART AND MEDIASTINAL STRUCTURES: There are few scattered small mediastinal lymph nodes the largest in the AP window at 12 mm not significantly changed. Coronary artery calcifications are present. Previously noted thickening of the pericardium has improved. There is a small hiatal hernia. LUNGS AND PLEURAL SPACES: Centrilobular emphysema is once again noted. Patchy ground-glass attenuation is present in the right middle lobe and lung bases which is somewhat more prominent than when compared to the previous exam. The previously noted 7 mm nodule in the right upper lobe medially is not apparent on today's exam. There are scattered areas of scarring. Upper abdomen: There is a small hiatal hernia with hyperdense material within the hernia and a small amount hyperdensity noted in the stomach. Has the patient had recent oral contrast?. Bismuth containing medication could have a similar appearance. Small gallstone is present. Bony structures:: No acute finding ADDITIONAL FINDINGS: No other significant abnormalities. IMPRESSION: 1. The pericardial effusion has resolved. 2. Right upper lobe nodule no longer apparent. 3. There is centrilobular with COPD and scattered areas of scarring with some worsening of the patchy ground-glass attenuation in the right middle lobe and lower lobes which could be inflammatory or infectious. 4. Hiatal hernia with hyperdense material within the hernia Dictated by: Harsha Park MD 03/03/2020 07:47 Electronically signed by Harsha Park MD in [place] 03/03/2020 07:47
== END ==
PROVIDERS: PCP Internal Medicine Adolescent Medicine; Visit Provider Internal Medicine Cardiovascular Disease
DX: I31.3 Pericardial effusion (noninflammatory) (principal)
CPT/HCPCS: 71250

== ENCOUNTER → 2020-03-16 09:42 | Outpatient (CLI) | payer MEDICARE, SELFPAY ==
--- NOTE | 2020-03-16 10:31 | XR_ITS ---
PROCEDURE: XR CHEST CHP 1V CLINICAL HISTORY: COVID SCREENING COMPARISON: CXR2V XR chest 2V from 07/20/2018 XR CHEST 2V from 08/23/2019 XR CHEST 2V from 09/09/2019 CT CHEST WO CON from 03/02/2020 FINDINGS: The cardiomediastinal silhouette and pulmonary vascularity are within normal limits. The lungs are clear without infiltrates, suspicious nodules, or pleural effusions. No acute bony abnormalities. There are mild degenerate changes both shoulders with moderate spurring of the inferior aspect of the humeral head right-side. IMPRESSION: No acute findings. Dictated by: Dr. Tomas Raygoza MD 03/16/2020 10:[address] Tomas Raygoza MD in [place] 03/16/2020 10:46
[2020-03-16 11:08] LABS: Basophils % 0.4 % (0.1-2.0); Eosinophils # 0.3 K/mm3 (0.0-0.4); Eosinophils % 3.4 % (0.1-12.0); Hematocrit 39.3 % (42.0-52.0); Hemoglobin 13.6 g/dL (14.1-18.0); Lymphocytes # 1.2 K/mm3 (0.7-4.5); Lymphocytes % 11.6 % (10-50); Mean Corpuscular HGB Conc 34.7 g/dL (31.8-35.4); Mean Corpuscular Hemoglobin 33.4 pg (27.0-31.2); Mean Corpuscular Volume 96.3 fl (80-94); Mean Platelet Volume 7.3 fl (7.4-10.4); Monocytes # 0.6 K/mm3 (0.1-1.0); Monocytes % 5.6 % (1.7-9.3); Neutrophils # 8.1 K/mm3 (1.8-7.8); Neutrophils % 79.1 % (37.0-80.0); Platelet Count 302 K/mm3 (142-424); Red Blood Count 4.08 M/mm3 (4.60-6.20); Red Cell Distribution Width 13.4 % (11.5-17.5); White Blood Count 10.2 K/mm3 (4.8-10.8)
[2020-03-16 11:19] LABS: Alanine Aminotransferase 34 U/L (12-78); Albumin Level 4.1 g/dl (3.5-5.0); Albumin/Globulin Ratio 1.3 (1.1-1.8); Alkaline Phosphatase 120 U/L (38-126); Anion Gap 10.2 mEq/L (5-15); Aspartate Amino Transferase 37 U/L (17-59); Bilirubin,Total 0.4 mg/dl (0.2-1.3); Blood Urea Nitrogen 20 mg/dl (9-20); Calcium 9.3 mg/dl (8.4-10.2); Carbon Dioxide 25 mmol/L (22.0-30.0); Chloride 104 mmol/L (98-107); Estimated Glomerular Filt Rate 73 ml/min (>60); GFR (African American) 89 ML/MIN (>60); Globulin 3.1 g/dL (1.3-3.2); Glucose 107 mg/dl (74-100); Potassium 4.2 mmoL/L (3.5-5.1); Sodium 135 mmol/L (136-145); Total Protein,Serum 7.2 g/dl (6.3-8.2)
[2020-03-16 11:35] LABS: Troponin I < 0.01 ng/ml (0.00-0.034)
[2020-03-16 12:14] LABS: Erythrocyte Sedimentation Rate 36 mm/hr (0-20)
[2020-03-16 12:22] LABS: Mycoplasma Pneumo IGM (Rapid) Non-Reactive (Non-Reactiv)
[2020-03-17 16:03] LABS: Covid-19 Nasal PCR Sendout Lex Not Detected
--- NOTE | 2020-03-18 12:40 | PC.NURSE ---
patient and dr white both aware of negative covid 19 test
== END ==
PROVIDERS: PCP Internal Medicine Adolescent Medicine; Visit Provider Internal Medicine Adolescent Medicine
DX: Z03.818 Encounter for observation for suspected exposure to other biological agents ruled out (principal)
CPT/HCPCS: 71010; 80053; 84484; 85025; 85651; 86738; U0004

== ENCOUNTER 2020-04-30 22:17 | Emergency (ER) | payer MEDICARE, SELFPAY ==
[2020-04-30 22:23] VITALS: BMI 23.6
--- NOTE | 2020-04-30 22:24 | XR_ITS ---
PROCEDURE: XR CHEST PORTABLE CLINICAL HISTORY: fever COMPARISON: XR CHEST 2V from 08/23/2019 XR CHEST 2V from 09/09/2019 CT CHEST WO CON from 03/02/2020 XR CHEST CHP 1V from 03/16/2020 FINDINGS: The cardiomediastinal silhouette and pulmonary vascularity are within normal limits. The lungs are clear without infiltrates, suspicious nodules, or pleural effusions. No acute bony abnormalities. IMPRESSION: No acute findings. Dictated by: Harsha Park MD 05/01/2020 06:54 Electronically signed by Harsha Park MD in [place] 05/01/2020 06:54
[2020-04-30 22:27] VITALS: BP 136/83; PULSE 90; RESP 16; TEMP 37.6; O2SAT 94; BMI 25.9
[2020-04-30 22:44] LABS: Basophils # 0.1 K/mm3 (0-0.2); Basophils % 0.5 % (0.1-2.0); Eosinophils # 0.4 K/mm3 (0.0-0.4); Eosinophils % 3.6 % (0.1-12.0); Hematocrit 43.2 % (42.0-52.0); Hemoglobin 14.8 g/dL (14.1-18.0); Lymphocytes # 0.9 K/mm3 (0.7-4.5); Lymphocytes % 9.2 % (10-50); Mean Corpuscular HGB Conc 34.2 g/dL (31.8-35.4); Mean Corpuscular Hemoglobin 33.7 pg (27.0-31.2); Mean Corpuscular Volume 98.5 fl (80-94); Mean Platelet Volume 7.5 fl (7.4-10.4); Monocytes # 0.2 K/mm3 (0.1-1.0); Monocytes % 2.1 % (1.7-9.3); Neutrophils # 8.3 K/mm3 (1.8-7.8); Neutrophils % 84.6 % (37.0-80.0); Platelet Count 303 K/mm3 (142-424); Red Blood Count 4.39 M/mm3 (4.60-6.20); Red Cell Distribution Width 13.4 % (11.5-17.5); White Blood Count 9.8 K/mm3 (4.8-10.8)
[2020-04-30 22:49] LABS: Chloride 100 mmol/L (98-107); Potassium 3.9 mmoL/L (3.5-5.1); Sodium 137 mmol/L (136-145); Strep Scrn Group A (Rapid) Negative (Negative)
[2020-04-30 22:51] LABS: Alanine Aminotransferase 32 U/L (12-78); Aspartate Amino Transferase 40 U/L (17-59); Blood Urea Nitrogen 25 mg/dl (9-20); Creatinine Clearance Estimated 77 mL/min (50-200); Estimated Glomerular Filt Rate 66 ml/min (>60); GFR (African American) 80 ML/MIN (>60); Lactic Acid 1.5 mmol/L (0.7-2.1)
[2020-04-30 22:52] LABS: Albumin Level 4.1 g/dl (3.5-5.0); Albumin/Globulin Ratio 1.3 (1.1-1.8); Alkaline Phosphatase 98 U/L (38-126); Anion Gap 11.9 mEq/L (5-15); Bilirubin,Total 0.5 mg/dl (0.2-1.3); Calcium 9.1 mg/dl (8.4-10.2); Carbon Dioxide 29 mmol/L (22.0-30.0); Globulin 3.2 g/dL (1.3-3.2); Glucose 117 mg/dl (74-100); Total Protein,Serum 7.3 g/dl (6.3-8.2)
--- NOTE | 2020-04-30 23:02 | PC.NURSE ---
discussed rapid covid testing with senior data warehouse developer; permission given.
[2020-04-30 23:08] LABS: Coronavirus 19 IgG Antibody Negative (Negative)
[2020-04-30 23:09] LABS: Coronavirus 19 IgM Antibody Negative (Negative)
[2020-04-30 23:24] LABS: C-Reactive Protein 3.1 mg/L (0-4)
[2020-04-30 23:30] LABS: Adenovirus,PCR Not Detected (NotDetected); Bordetella Pertussis Not Detected (NotDetected); Chlamydophila Pneumoniae, PCR Not Detected (NotDetected); Coronavirus 19, PCR Not Detected (NotDetected); Coronavirus 229E Not Detected (NotDetected); Coronavirus NL63 Not Detected (NotDetected); Coronavirus OC43 Not Detected (NotDetected); Coronovirus HKU1,PCR Not Detected (NotDetected); Human Metapneumovirus Not Detected (NotDetected); Influenza A, PCR Not Detected (NotDetected); Influenza AH1, 2009 Not Detected (NotDetected); Influenza AH1, PCR Not Detected (NotDetected); Influenza AH3,PCR Not Detected (NotDetected); Influenza B, PCR Not Detected (NotDetected); Mycoplasma Pneumoniae, PCR Not Detected (NotDected); Parainfluenza 1, PCR Not Detected (NotDetected); Parainfluenza 2, PCR Not Detected (NotDetected); Parainfluenza 3, PCR Not Detected (NotDetected); Parainfluenza 4, PCR Not Detected (NotDetected); Respiratory Syncytial Virus Not Detected (NotDetected); Rhinovirus/Enterovirus Not Detected (NotDetected)
--- NOTE | 2020-04-30 23:37 | PC.NURSE ---
urine collected and sent to lab
[2020-04-30 23:39] VITALS: BP 148/83; PULSE 89; RESP 16; O2SAT 94
[2020-04-30 23:40] LABS: Microscopic, Urine URINE MICROSCOPIC (MICROSCOPIC)
--- NOTE | 2020-04-30 23:41 | HMH.EDFEV ---
ED Disposition Clinical Impression: Febrile illness, acute, Chills Disposition: Home, Self-Care Condition on Discharge: Good Instructions: DI for Fever (Symptom) -- Adult Additional Instructions: fluids and see pcp for rosanna teresa Referrals: Lam Pope MD [Primary Care Provider] - - Critical Care Critical Care Time: No Attestation: On 04/30/20, the high probability of a clinically significant, sudden or life threatening deterioration of the following system(s) required my full and direct attention, intervention and personal management. The time I documented below is in addition to time spent performing reported procedures but includes the following listed in this critical care notation. Medical Decision Making - Medical Records Medical records reviewed: Yes: I reviewed the patient's medical records. - [place] Inquiry Pt receiving controlled substance: No Vital Signs: 04/30/20 22:27 04/30/20 23:39 05/01/20 01:11 Temperature 99.6 F Temperature Source Oral Pulse Rate [Right Brachial] 90 89 90 Respiratory Rate 16 16 Blood Pressure [Right Arm] 136/83 148/83 H 117/70 Blood Pressure Mean [Right Arm] 100 104 85 Blood Pressure Source [Right Arm] Automatic Cuff Automatic Cuff Automatic Cuff Blood Pressure Position [Right Arm] Sitting Sitting Sitting 02 Sat by Pulse Oximetry 94 L 94 L 94 L Oxygen Delivery Method Room Air Room Air Room Air - Lab Data Lab results reviewed: Yes: I reviewed the patient's lab results. Lab Results 04/30/20 22:25: WBC 9.8, RBC 4.39 L, Hgb 14.8, Hct 43.2, MCV 98.5 H, MCH 33.7 H, MCHC 34.2, RDW 13.4, Plt Count 303, MPV 7.5, Neut % (Auto) 84.6 H, Lymph % (Auto) 9.2 L, [place] % (Auto) 2.1, Eos % (Auto) 3.6, Baso % (Auto) 0.5, Neut # (Auto) 8.3 H, Lymph # (Auto) 0.9, [place] # (Auto) 0.2, Eos # (Auto) 0.4, Baso # (Auto) 0.1 04/30/20 22:25: Sodium 137, Potassium 3.9, Chloride 100, Carbon Dioxide 29, Anion Gap 11.9, BUN 25 H, Creatinine 1.10, Estimated Creat Clear 77, Estimated GFR 66, Est GFR ( Amer) 80, Glucose 117 H, Calcium 9.1, Total Bilirubin 0.5, AST 40, ALT 32, Alkaline Phosphatase 98, Total Protein 7.3, Albumin 4.1, Globulin 3.2, Albumin/Globulin Ratio 1.3 04/30/20 22:25: Lactate 1.5 04/30/20 22:25: Influenza Type A Ag Negative, Influenza Type B Ag Negative 04/30/20 22:25: Group A Strep Rapid Negative 04/30/20 22:25: SARS-CoV-2 IgG Ab (Rapid) Negative, SARS-CoV-2 IgM Ab (Rapid) Negative 04/30/20 22:25: ESR 19 04/30/20 22:25: C-Reactive Protein 3.1 04/30/20 22:30: Urine Color Yellow, Urine Appearance Clear, Urine pH 6.0, Ur Specific [place] >= 1.030, Urine Protein Negative, Urine Glucose (UA) Negative, Urine Ketones Negative, Urine Blood Trace-i, Urine Nitrate Negative, Urine Bilirubin Negative, Urine Urobilinogen 0.2, Ur Leukocyte Esterase Negative, Urine RBC 3-5, Urine WBC 3-5, Urine Bacteria 1+, Urine Mucus 1+ 04/30/20 23:20: Chlamy pneumoniae PCR Not detected, Adenovirus (PCR) Not detected, B. pertussis DNA (PCR) Not detected, Coronavirus OC43 (PCR) Not detected, Coronavirus HKU1 (PCR) Not detected, Coronavirus 229E (PCR) Not detected, COVID-19 PCR Not detected, Coronavirus NL63 (PCR) Not detected, Human Metapneumovir PCR Not detected, Influenza A (H1) PCR Not detected, Influ A (H1N1/09) PCR Not detected, Influenza A (H3) PCR Not detected, Influenza Type A (PCR) Not detected, Influenza Type B (PCR) Not detected, M. pneumoniae (PCR) Not detected, Parainfluenza 1 (PCR) Not detected, Parainfluenza 2 (PCR) Not detected, Parainfluenza 3 (PCR) Not detected, Parainfluenza 4 (PCR) Not detected, RSV (PCR) Not detected, Entero/Rhino (PCR) Not detected Result diagrams: 04/30/20 22:25 04/30/20 22:25 Orders (Tests/Meds): ORDERS Category Date Time Status XR chest portable Stat Exams 04/30/20 22:24 Taken Blood Culture Stat Micro 04/30/20 22:25 Received Strep Screen Confirmation Stat Micro 04/30/20 22:25 Received Urine Culture Stat Micro 05/01/20 00:00 Received - Radiology Data
[2020-04-30 23:43] LABS: Erythrocyte Sedimentation Rate 19 mm/hr (0-20)
[2020-04-30 23:45] LABS: Appearance,Urine CLEAR (Clear); Bilirubin,Urine Negative (Negative); Blood, Urine TRACE-I (Negative); Color,Urine YELLOW (Yellow); Glucose,Urine (UA) Negative (Negative); Ketones,Urine Negative (Negative); Leukocyte Esterase,Urine Negative (Negative); Nitrate,Urine Negative (Negative); Protein,Urine Negative (Negative); Specific Gravity, Urine >= 1.030 (1.005-1.030); Urobilinogen,Urine 0.2 EU/dl (0.2)
[2020-05-01 00:02] LABS: Bacteria,Urine 1+ /lpf; Mucus,Urine 1+ /lpf
--- NOTE | 2020-05-01 00:58 | PC.NURSE ---
AWARE OF NEGATIVE COVID SWAB. ON PHONE WITH DR DURAN AT THIS TIME
[2020-05-01 01:11] VITALS: BP 117/70; PULSE 90; O2SAT 94
[2020-05-01 01:23] VITALS: BP 126/64; PULSE 63; RESP 16; TEMP 37.3; O2SAT 98
== END 2020-05-01 01:28 | disposition home or self-care (01) ==
PROVIDERS: Emergency Provider Emergency Medicine; PCP Internal Medicine Adolescent Medicine
DX: J06.9 Acute upper respiratory infection, unspecified (principal)
CPT/HCPCS: 71045; 80053; 81001; 83605; 85025; 85651; 86140; 86328; 87040; 87086; 87275; 87276; 87430; 87581; 87633; 87798; 99284

== ENCOUNTER → 2020-08-13 12:42 | Outpatient (CLI) | payer MEDICARE, SELFPAY ==
--- NOTE | 2020-08-13 12:43 | CT_ITS ---
PROCEDURE: CT CHEST WO CON CLINICAL INDICATION: Mediastinal adenopathy f/u nodules COMPARISON: CT CT CHEST WO CON from 03/02/2020 TECHNIQUE: Axial images obtained with sagittal and coronal reformats. All CT scans at the facility use one or more dose reduction, viz: automated exposure control, ma/kV adjustment per patient size (including targeted exams where dose is matched to indication, i.e. head), or iterative reconstruction technique. FINDINGS: HEART AND MEDIASTINAL STRUCTURES: There are few scattered small mediastinal lymph nodes once again noted measuring up to 12 mm in long axis not significantly changed. Coronary artery calcifications are present. LUNGS AND PLEURAL SPACES: There are scattered areas of scarring with centrilobular emphysema. Patchy subsegmental areas of ground-glass opacification are present in the lower lobes bilaterally right greater than left and within the right middle lobe. These findings are not significantly changed. No suspicious nodules are evident. There is a partially calcified nodule left apex which is unchanged. BONY STRUCTURES: No acute bony abnormalities apparent. UPPER ABDOMEN: Small stone is present in the gallbladder ADDITIONAL FINDINGS: No other significant abnormalities. IMPRESSION: Stable CT appearance of the chest. Centrilobular emphysema with old granulomatous disease and scattered areas of scarring with ground-glass opacities in the lower lung zones are all stable. Small mediastinal lymph nodes are unchanged. Ground-glass opacities are nonspecific and could be inflammatory or infectious. Cholelithiasis Dictated by: Harsha Park MD 08/14/2020 06:18 Harsha Park MD in [place] 08/14/2020 06:18
== END ==
PROVIDERS: PCP Internal Medicine Adolescent Medicine; Visit Provider Internal Medicine Pulmonary Disease
DX: R59.0 Localized enlarged lymph nodes (principal)
CPT/HCPCS: 71250

== ENCOUNTER → 2020-08-13 15:12 | Outpatient (CLI) | payer MEDICARE, SELFPAY ==
[2020-08-14 12:43] LABS: Adenovirus,PCR Not Detected (NotDetected); Bordetella Pertussis Not Detected (NotDetected); Chlamydophila Pneumoniae, PCR Not Detected (NotDetected); Coronavirus 19, PCR Not Detected (NotDetected); Coronavirus 229E Not Detected (NotDetected); Coronavirus NL63 Not Detected (NotDetected); Coronavirus OC43 Not Detected (NotDetected); Coronovirus HKU1,PCR Not Detected (NotDetected); Human Metapneumovirus Not Detected (NotDetected); Influenza A, PCR Not Detected (NotDetected); Influenza AH1, 2009 Not Detected (NotDetected); Influenza AH1, PCR Not Detected (NotDetected); Influenza AH3,PCR Not Detected (NotDetected); Influenza B, PCR Not Detected (NotDetected); Mycoplasma Pneumoniae, PCR Not Detected (NotDetected); Parainfluenza 1, PCR Not Detected (NotDetected); Parainfluenza 2, PCR Not Detected (NotDetected); Parainfluenza 3, PCR Not Detected (NotDetected); Parainfluenza 4, PCR Not Detected (NotDetected); Respiratory Syncytial Virus Not Detected (NotDetected); Rhinovirus/Enterovirus Not Detected (NotDetected)
== END ==
PROVIDERS: PCP Nurse Practitioner Family; Visit Provider Nurse Practitioner Family
DX: Z03.818 Encounter for observation for suspected exposure to other biological agents ruled out (principal); R05 Cough
CPT/HCPCS: 71250; 87581; 87633; 87798; U0003; U0004

== ENCOUNTER → 2020-09-25 09:55 | Outpatient (POV) | payer MEDICARE, SELFPAY | PROVIDERS: Visit Provider Otolaryngology | DX: Z00.00 Encounter for general adult medical examination without abnormal findings (principal) ==

== ENCOUNTER → 2020-10-08 13:48 | Outpatient (CLI) | payer MEDICARE, SELFPAY | PROVIDERS: Visit Provider Internal Medicine Pulmonary Disease | DX: J44.9 Chronic obstructive pulmonary disease, unspecified (principal) ==

== ENCOUNTER → 2020-10-09 10:54 | Outpatient (CLI) | payer MEDICARE, SELFPAY ==
[2020-10-10 13:13] LABS: Immunoglobulin A, Qn 417 mg/dL (61-437); Immunoglobulin G, Qn 929 mg/dL (603-1613); Immunoglobulin M, Qn 82 mg/dL (15-143)
[2020-10-11 02:29] LABS: Alpha-1-Antitrypsin 144 mg/dL (101-187)
[2020-10-12 03:32] LABS: Immunoglobulin E, Total 16 IU/mL (6-495)
[2020-10-12 10:28] LABS: QuantiFERON-TB Gold Plus Negative (Negative)
== END ==
PROVIDERS: Visit Provider Internal Medicine Pulmonary Disease
DX: R91.1 Solitary pulmonary nodule (principal); J45.30 Mild persistent asthma, uncomplicated; J30.9 Allergic rhinitis, unspecified; J32.9 Chronic sinusitis, unspecified; J40 Bronchitis, not specified as acute or chronic; R59.0 Localized enlarged lymph nodes
CPT/HCPCS: 36415; 82103; 82784; 82785; 86480

== ENCOUNTER → 2020-10-22 13:19 | Outpatient (CLI) | payer MEDICARE, SELFPAY ==
--- NOTE | 2020-10-22 13:22 | CT_ITS ---
PROCEDURE: CT SINUS WO CON CLINICAL HISTORY: NASAL CONGESTION,PND,CHEST CONGESTION,RECURRENT SINUSTIS COMPARISON: No exams were available for comparison TECHNIQUE: Axial images obtained with sagittal and coronal reformats. All CT scans at the facility use one or more dose reduction, viz: automated exposure control, ma/kV adjustment per patient size (including targeted exams where dose is matched to indication, i.e. head), or iterative reconstruction technique. FINDINGS: The paranasal sinuses are clear except for minimal mucoperiosteal thickening floor of each maxillary sinus. The ostiomeatal complex is clear bilaterally. The nasal septum is in the midline. The nasal bone is intact and the nasal spine appears normal. IMPRESSION: Minimal chronic inflammatory changes floor of the maxillary sinuses otherwise unremarkable study Dictated by: Dr. Tomas Raygoza MD 10/22/2020 13:55 Dr. Tomas Raygoza MD in [place] 10/22/2020 13:55
== END ==
PROVIDERS: PCP Nurse Practitioner Family; Visit Provider Otolaryngology
DX: J01.91 Acute recurrent sinusitis, unspecified (principal); R09.81 Nasal congestion; R09.82 Postnasal drip; R09.89 Other specified symptoms and signs involving the circulatory and respiratory systems
CPT/HCPCS: 70486

== ENCOUNTER → 2020-12-24 08:22 | Outpatient (CLI) | payer MEDICARE, SELFPAY ==
[2020-12-24 09:08] LABS: Basophils # 0.1 K/mm3 (0-0.2); Basophils % 0.7 % (0.1-2.0); Eosinophils # 0.6 K/mm3 (0.0-0.4); Eosinophils % 7.2 % (0.1-12.0); Hematocrit 44.7 % (42.0-52.0); Hemoglobin 14.6 g/dL (14.1-18.0); Lymphocytes # 1.8 K/mm3 (0.7-4.5); Lymphocytes % 21.6 % (10-50); Mean Corpuscular HGB Conc 32.5 g/dL (31.8-35.4); Mean Corpuscular Hemoglobin 30.9 pg (27.0-31.2); Mean Platelet Volume 7.1 fl (7.4-10.4); Monocytes # 0.7 K/mm3 (0.1-1.0); Monocytes % 8.1 % (1.7-9.3); Neutrophils # 5.2 K/mm3 (1.8-7.8); Neutrophils % 62.4 % (37.0-80.0); Platelet Count 355 K/mm3 (142-424); Red Blood Count 4.71 M/mm3 (4.60-6.20); Red Cell Distribution Width 13.2 % (11.5-17.5); White Blood Count 8.3 K/mm3 (4.8-10.8)
[2020-12-24 10:19] LABS: Chloride 107 mmol/L (98-107); Potassium 4.7 mmoL/L (3.5-5.1); Sodium 142 mmol/L (136-145)
[2020-12-24 10:21] LABS: Alanine Aminotransferase 22 U/L (12-78); Alkaline Phosphatase 144 U/L (38-126); Aspartate Amino Transferase 37 U/L (17-59); Bilirubin,Total 0.5 mg/dl (0.2-1.3); Blood Urea Nitrogen 24 mg/dl (9-20); Estimated Glomerular Filt Rate 73 ml/min (>60); GFR (African American) 89 ML/MIN (>60)
[2020-12-24 10:22] LABS: Albumin Level 4.1 g/dl (3.5-5.0); Albumin/Globulin Ratio 1.3 (1.1-1.8); Anion Gap 10.7 mEq/L (5-15); Calcium 9.4 mg/dl (8.4-10.2); Carbon Dioxide 29 mmol/L (22.0-30.0); Cholesterol 146 mg/dl (140-200); Globulin 3.2 g/dL (1.3-3.2); Glucose 103 mg/dl (74-100); HDL Cholesterol 49 mg/dl (40-60); Total Protein,Serum 7.3 g/dl (6.3-8.2); Triglycerides 120 mg/dl (30-150); VLDL Cholesterol 24 mg/dL (0-40)
[2020-12-24 10:33] LABS: Direct LDL Cholesterol 69.99 mg/dL (100-129)
[2020-12-24 10:52] LABS: Thyroid Stimulating Hormone 3.23 uIU/mL (0.465-4.68)
== END ==
PROVIDERS: Visit Provider Internal Medicine Adolescent Medicine
DX: I10 Essential (primary) hypertension (principal); E78.5 Hyperlipidemia, unspecified; E03.9 Hypothyroidism, unspecified
CPT/HCPCS: 36415; 80053; 80061; 84443; 85025

== ENCOUNTER → 2020-12-25 09:23 | Outpatient (POV) | payer MEDICARE, SELFPAY | PROVIDERS: Visit Provider Otolaryngology | DX: Z00.00 Encounter for general adult medical examination without abnormal findings (principal) ==

== ENCOUNTER → 2021-03-14 08:52 | Outpatient (CLI) | payer MEDICARE, SELFPAY ==
[2021-03-14 10:48] LABS: Thyroid Stimulating Hormone 1.44 uIU/mL (0.465-4.68)
== END ==
PROVIDERS: Visit Provider Internal Medicine Adolescent Medicine
DX: E03.9 Hypothyroidism, unspecified (principal)
CPT/HCPCS: 36415; 84443

== ENCOUNTER → 2021-03-26 09:25 | Outpatient (POV) | payer MEDICARE, SELFPAY | PROVIDERS: Visit Provider Otolaryngology | DX: Z00.00 Encounter for general adult medical examination without abnormal findings (principal) ==

== ENCOUNTER → 2021-08-08 08:22 | Outpatient (CLI) | payer MEDICARE, SELFPAY ==
--- NOTE | 2021-08-08 08:32 | CT_ITS ---
PROCEDURE: CT CHEST WO CON CLINICAL INDICATION: F/U COMPARISON: CT CT CHEST WO CON from 08/13/2020 TECHNIQUE: Axial images obtained with sagittal and coronal reformats. All CT scans at the facility use one or more dose reduction, viz: automated exposure control, ma/kV adjustment per patient size (including targeted exams where dose is matched to indication, i.e. head), or iterative reconstruction technique. FINDINGS: HEART AND MEDIASTINAL STRUCTURES: There is scattered small mediastinal nodes slightly more prominent in the precarinal region. Largest node is in the AP window unchanged at approximately 12 7 mm. Coronary artery calcifications and aortic valve calcifications are present. There is minimal curvilinear calcification along the posterior aspect of the left ventricle. LUNGS AND PLEURAL SPACES: COPD with centrilobular/panlobular emphysema and scattered areas of scarring. Faint scattered areas of ground-glass attenuation once again noted and may be related to small airway disease. No suspicious nodules are evident. No areas of lobar consolidation or collapse. BONY STRUCTURES: No acute bony anomaly. There is an old right 9th and 8th rib fracture. UPPER ABDOMEN: Cholelithiasis ADDITIONAL FINDINGS: No other significant abnormalities. IMPRESSION: Stable CT appearance of the chest. Centrilobular/panlobular emphysema with COPD changes and scattered areas of scarring. Faint areas of ground-glass attenuation which may be related to small airway disease. Cholelithiasis Dictated by: Harsha Park MD 08/08/2021 08:57 Harsha Park MD in [place] 08/08/2021 08:57
== END ==
PROVIDERS: PCP Nurse Practitioner Family; Visit Provider Internal Medicine Pulmonary Disease
DX: R59.0 Localized enlarged lymph nodes (principal); R91.8 Other nonspecific abnormal finding of lung field
CPT/HCPCS: 71250

== ENCOUNTER 2021-08-29 16:23 | Emergency (ER) | payer MEDICARE, SELFPAY ==
[2021-08-29 17:00] VITALS: BP 140/84; PULSE 79; RESP 19; TEMP 36.6; O2SAT 96; BMI 26.1
--- NOTE | 2021-08-29 17:30 | HMH.EDUTC ---
[facility] [place] Disposition Clinical Impression: Sinusitis Qualifiers: Sinusitis location: unspecified location Chronicity: unspecified Qualified Code(s): J32.9 - Chronic sinusitis, unspecified Disposition: Home, Self-Care Condition on Discharge: Good Instructions: Sinusitis, DI for Sinusitis, Doxycycline Additional Instructions: ? Start antibiotic today. Be sure to complete entire prescription even if feeling better ? Monitor temp. Tylenol every 4 hours as needed and / or ibuprofen every 6 hours as needed ( As long as your primary care physician has told you that it ok to take both. For fever/aches/pains ER if no less than 101 despite Tylenol or Motrin ? Humidifier/vaporizer or hot steamy shower ? Inhaler every 4-6 hours as needed like we discussed. If unsure how to use it, ask pharmacist to demonstrate how. Should help open airways and improve cough, wheezing, and shortness of breath *Tessalon Perles will not cause drowsiness but use at bedtime to help stop cough so that you may get some rest. *Start steroid today. Helps with inflammation therefore, cough and wheezing. Follow directions on the package. Reviewed side effects. Patient reports taking them before. Follow up IMMEDIATELY for new or worsening of symptoms OR no noticeable improvement over the next 48-72 hours. 911 immediately for any life threatening symptoms such as chest pain or difficulty breathing Prescriptions: Benzonatate [Benzonatate 100mg cap] 100 mg PO TID PRN #15 cap PRN Reason: Cough Transmission Status: Received by [facility] predniSONE [Deltasone 10mg tablet] 10 mg PO BID 5 Days #10 tab Transmission Status: Received by [facility] Doxycycline Monohydrate [Doxycycline [place] 100mg Tab] 100 mg PO Q12 7 Days #14 tab Transmission Status: Received by [facility] Referrals: Lam Pope MD [Primary Care Provider] - As needed Time of Disposition: 17:39 Medical Decision Making - Prieto Inquiry Pt receiving controlled substance: No Prieto was queried for this patient: No Vital Signs: 08/29/21 17:00 Temperature 97.9 F Temperature Source Oral Pulse Rate [Right Brachial] 79 Respiratory Rate 19 Blood Pressure [Right Arm] 140/84 Blood Pressure Mean [Right Arm] 102 Blood Pressure Source [Right Arm] Automatic Cuff Blood Pressure Position [Right Arm] Sitting 02 Sat by Pulse Oximetry 96 Oxygen Delivery Method Room Air Orders (Tests/Meds): ED MEDICATIONS Discontinued Medications Generic Name Dose Route Start Last Admin Trade Name Cyrus PRN Reason Stop Dose Admin Ceftriaxone Sodium 1 gm 08/29/21 17:36 08/29/21 17:45 Ceftriaxone 1gm Vial IM 08/29/21 17:37 1 gm ONCE ONE Administration Lidocaine HCl 0 ml 08/29/21 17:36 08/29/21 17:45 Lidocaine 1% 5ml Pf Vial IM 08/29/21 17:37 2.1 ml ONCE ONE Administration Methylprednisolone Sodium Succinate 125 mg 08/29/21 17:36 08/29/21 17:45 Methylprednisolone Sod Succ 125mg Vial IM 08/29/21 17:37 125 mg ONCE ONE Administration [facility] HPI - General Stated complaint: congestion,cough Time Seen by Provider: 08/29/21 17:30 Mode of Arrival: Ambulatory Source of Information: Patient Limitations: No Limitations Description of Symptoms (Recalled from Triage Doc. by RN): PATIENT C/O COUGH, CONGESTION, AND WHEEZING X 2 DAYS HEENT Symptoms (Recalled from RN notes): Yes Resp Symptoms (Recalled from RN notes): Yes Skin Symptoms (Recalled from RN notes): No MS Symptoms (Recalled from RN notes): No Functional Status (Recalled from RN notes): WNL - History of Present Illness Provider Complaint: Patient states that he was fine until he was outside playing tennis about a week ago and thinks it got him sick States that he was playing and started having sinus congestion and cough States that he has continued to have same symptoms and made him come and get checked out - Related Data Home Medications Medication Instructions Recorded Confirmed rosuvast
[2021-08-29 18:05] VITALS: BP 140/84; PULSE 79; RESP 19; TEMP 36.6; O2SAT 96
== END 2021-08-29 18:14 | disposition home or self-care (01) ==
PROVIDERS: Emergency Provider Nurse Practitioner; PCP Internal Medicine Adolescent Medicine
DX: J32.9 Chronic sinusitis, unspecified (principal); I10 Essential (primary) hypertension; I25.10 Atherosclerotic heart disease of native coronary artery without angina pectoris; Z79.899 Other long term (current) drug therapy
CPT/HCPCS: G0463; 96372; 99202

== ENCOUNTER → 2021-09-27 16:53 | Outpatient (CLI) | payer MEDICARE, SELFPAY | PROVIDERS: PCP Radiology Diagnostic Radiology; Visit Provider Nurse Practitioner | DX: U07.1 COVID-19 (principal) | CPT/HCPCS: C9803; U0003; U0005 ==

== ENCOUNTER 2021-09-28 08:44 | Outpatient (CLI) | payer MEDICARE, SELFPAY ==
[2021-09-28] VITALS (7 sets, daily range): BP systolic 122–146; BP diastolic 63–82; PULSE 67–76; RESP 18–20; TEMP 37–37.2; O2SAT 94–98
== END 2021-09-28 11:05 | disposition home or self-care (01) ==
PROVIDERS: PCP Internal Medicine Adolescent Medicine; Visit Provider Emergency Medicine
DX: U07.1 COVID-19 (principal); Z23 Encounter for immunization
CPT/HCPCS: 96365

== ENCOUNTER 2022-02-02 15:23 | Emergency (ER) | payer MEDICARE, SELFPAY ==
[2022-02-02 15:31] VITALS: BP 144/83; PULSE 92; RESP 16; TEMP 36.9; O2SAT 99; BMI 25.8
--- NOTE | 2022-02-02 15:43 | HMH.EDUTC ---
[facility] [place] Disposition Clinical Impression: Sinusitis Qualifiers: Sinusitis location: unspecified location Chronicity: acute Recurrence: non-recurrent Qualified Code(s): J01.90 - Acute sinusitis, unspecified Disposition: Home, Self-Care Condition on Discharge: Good Additional Instructions: Drink plenty of fluids. Take tylenol or ibuprofen for pain or fever. Take the medications as directed. Follow up with your regular doctor. GO TO THE ER FOR ANY WORSENING SYMPTOMS Don't start the oral steroids until tomorrow, since you had the shot here today. Prescriptions: Amoxicillin/Potassium Clav [Amox-Clav 875-125 mg Tablet] 1 tab PO BID #20 tab Transmission Status: Pending to [facility] Benzonatate [Benzonatate 100mg cap] 100 mg PO TIDP PRN #30 cap PRN Reason: Cough Transmission Status: Pending to [facility] methylPREDNISolone [Medrol] 4 mg PO DIRECTED 6 Days #21 packet Transmission Status: Pending to [facility] guaiFENesin [Mucinex 600mg tablet] 1 - 2 tab PO BIDP PRN #30 tab PRN Reason: Congestion Transmission Status: Pending to [facility] Referrals: Mervin Durand MD [Primary Care Provider] - Time of Disposition: 16:08 Medical Decision Making - Medical Records Medical records reviewed: No: I reviewed the patient's medical records. - Prieto Inquiry Pt receiving controlled substance: No Vital Signs: 02/02/22 15:31 02/02/22 16:21 Temperature 98.5 F 98.5 F Temperature Source Oral Pulse Rate 92 H Pulse Rate [Left] 92 H Respiratory Rate 16 16 Blood Pressure 144/83 H Blood Pressure [Right Arm] 144/83 H Blood Pressure Mean [Right Arm] 103 02 Sat by Pulse Oximetry 99 - Lab Data Lab results reviewed: Yes: I reviewed the patient's lab results. [facility] HPI - General Stated complaint: sinus pain Time Seen by Provider: 02/02/22 15:43 Mode of Arrival: Ambulatory Source of Information: Patient Limitations: No Limitations Description of Symptoms (Recalled from Triage Doc. by RN): pt thinks he has sinusitis. pt also states he has been feeling fatigued. HEENT Symptoms (Recalled from RN notes): Yes Resp Symptoms (Recalled from RN notes): No Skin Symptoms (Recalled from RN notes): No MS Symptoms (Recalled from RN notes): No Functional Status (Recalled from RN notes): wnl - History of Present Illness Provider Complaint: He states that for the past 4 weeks he has had sinus congestion and sinus drainage. He has started to run a fever and feel bad now. He has a history of getting frequent sinus infections. - Related Data Home Medications Medication Instructions Recorded Confirmed rosuvastatin 10 mg tablet 10 mg PO HS 10/08/18 10/14/21 alprazolam 0.5 mg tablet 0.5 mg PO BID PRN tab 10/21/19 10/14/21 desvenlafaxine succinate 50 mg 50 mg PO DAILY tab 03/15/21 10/14/21 tablet,extended release 24 hr levothyroxine 88 mcg tablet 88 mcg PO DAILY tab 03/15/21 10/14/21 Previous Rx's Medication Instructions Recorded losartan 50 mg tablet 25 mg PO QDAY #30 tab 02/27/21 albuterol sulfate 0.63 mg/3 mL 0.63 mg INHALATION Q6H PRN #90 ml 08/12/21 solution for nebulization Benzonatate [Benzonatate 100mg 100 mg PO TID PRN #15 cap 08/29/21 cap] Doxycycline Monohydrate 100 mg PO Q12 7 Days #14 tab 08/29/21 [Doxycycline [place] 100mg Tab] albuterol sulfate 90 mcg/actuation 1 inh INHALATION QID PRN 90 Days 10/14/21 aerosol inhaler #8.5 g azelastine 205.5 mcg (0.15 %) 2 spray INTRANASAL HS #90 ml 10/14/21 nasal spray fluticasone propionate 50 1 spray INTRANASAL DAILY 90 Days 10/14/21 mcg/actuation nasal #16 g spray,suspension montelukast 10 mg tablet 10 mg PO DAILY 90 Days #90 tab 10/14/21 budesonide-formoterol HFA 160 2 puff INHALATION BID 90 Days 10/15/21 mcg-4.5 mcg/actuation aerosol #10.2 g inhaler Amoxicillin/Potassium Clav 1 tab PO BID #20 tab 02/02/22 [Amox-Clav 875-125 mg Tablet] Benzonatate [Benzonatate 100mg 100 mg P
[2022-02-02 16:21] VITALS: BP 144/83; PULSE 92; RESP 16; TEMP 36.9
== END 2022-02-02 16:23 | disposition home or self-care (01) ==
PROVIDERS: Emergency Provider Nurse Practitioner Family; PCP Internal Medicine Adolescent Medicine
DX: J01.90 Acute sinusitis, unspecified (principal); R94.31 Abnormal electrocardiogram [ECG] [EKG]; I11.0 Hypertensive heart disease with heart failure; I50.30 Unspecified diastolic (congestive) heart failure; I25.10 Atherosclerotic heart disease of native coronary artery without angina pectoris; I45.2 Bifascicular block; E03.9 Hypothyroidism, unspecified; E78.5 Hyperlipidemia, unspecified; J45.909 Unspecified asthma, uncomplicated; Z79.51 Long term (current) use of inhaled steroids; Z79.52 Long term (current) use of systemic steroids; Z86.14 Personal history of Methicillin resistant Staphylococcus aureus infection
CPT/HCPCS: 96372; 99213; G0463

== ENCOUNTER 2022-03-14 15:14 | Emergency (ER) | payer MEDICARE, SELFPAY ==
[2022-03-14 15:20] VITALS: BP 137/73; PULSE 85; RESP 19; TEMP 36.9; O2SAT 98; BMI 26.1
--- NOTE | 2022-03-14 15:44 | HMH.EDUTC ---
[facility] [place] Disposition Clinical Impression: Sinusitis Qualifiers: Sinusitis location: unspecified location Chronicity: unspecified Qualified Code(s): J32.9 - Chronic sinusitis, unspecified Disposition: Home, Self-Care Condition on Discharge: Good Instructions: Sinusitis, DI for Sinusitis Additional Instructions: *Monitor Temp, Over the counter Motrin or Tylenol as directed/as needed Tylenol every 4 hours and Motrin every 6 hours (as long as your family doctor has told you that you can take it) for fever or pain. and straight to ER if unable to lower temp less than 101.0 after medication given *Warm salt water gargles may help to soothe the throat *Throat Lozenges *Warm fluids like tea with honey may help to soothe the throat *Sleep elevated *Humidifier/Vaporizer Take medication as prescribed Follow up IMMEDIATELY for new or worsening symptoms or no Noticeable improvement over the next 48-72 hours. 911 for difficulty breathing or swallowing Prescriptions: Benzonatate [Benzonatate 100mg cap] 100 mg PO Q8HP PRN #15 cap PRN Reason: Cough Transmission Status: Pending to [facility] methylPREDNISolone [Medrol 4mg tab] 4 mg PO DIRECTED #21 tab Transmission Status: Pending to [facility] Azithromycin [Z-Immanuel 250mg Tab] 250 mg PO DIRECTED #6 tab Transmission Status: Pending to [facility] Referrals: Lam Pope MD [Primary Care Provider] - As needed Time of Disposition: 15:55 Medical Decision Making - Prieto Inquiry Pt receiving controlled substance: No Prieto was queried for this patient: No Vital Signs: 03/14/22 15:20 Temperature 98.5 F Temperature Source Oral Pulse Rate [Right Brachial] 85 Respiratory Rate 19 Blood Pressure [Right Arm] 137/73 Blood Pressure Mean [Right Arm] 94 Blood Pressure Source [Right Arm] Automatic Cuff Blood Pressure Position [Right Arm] Sitting 02 Sat by Pulse Oximetry 98 Oxygen Delivery Method Room Air Medical Decision Narrative: discussed CXR patient declined states that he has had several over the year and didnt want to wait today Patient states he has taken azithromycin and medrol in the past without complications or reactions [facility] [place] HPI - General Stated complaint: Upper Resp Issues Time Seen by Provider: 03/14/22 15:44 Mode of Arrival: Ambulatory Source of Information: Patient Limitations: No Limitations Description of Symptoms (Recalled from Triage Doc. by RN): PATIENT C/O PRODUCTIVE COUGH, CHEST CONGESTION, AND LETHARGY X 10 DAYS HEENT Symptoms (Recalled from RN notes): No Resp Symptoms (Recalled from RN notes): Yes Skin Symptoms (Recalled from RN notes): No MS Symptoms (Recalled from RN notes): No Functional Status (Recalled from RN notes): WNL - History of Present Illness Provider Complaint: Patient states that he has been having sinus congestion, cough, drainage in the back of his throat and at times he is able to cough up some mucous States that he isnt having any shortness of breath but feels like he has an URI like he gets this time every year and wanted to get it treated since it has continued to get worse over the last 10 days before it turned into bronchitis - Related Data Home Medications Medication Instructions Recorded Confirmed rosuvastatin 10 mg tablet 10 mg PO HS 10/08/18 03/12/22 alprazolam 0.5 mg tablet 0.5 mg PO BID PRN tab 10/21/19 03/12/22 desvenlafaxine succinate 50 mg 50 mg PO DAILY tab 03/15/21 03/12/22 tablet,extended release 24 hr levothyroxine 88 mcg tablet 88 mcg PO DAILY tab 03/15/21 03/12/22 Previous Rx's Medication Instructions Recorded albuterol sulfate 0.63 mg/3 mL 0.63 mg INHALATION Q6H PRN #90 ml 08/12/21 solution for nebulization Benzonatate [Benzonatate 100mg 100 mg PO TID PRN #15 cap 08/29/21 cap] Doxycycline Monohydrate 100 mg PO Q12 7 Days #14 tab 08/29/21 [Doxycycline [place] 100mg Tab] Amoxicillin/Potassium Clav 1 tab PO BID #20 tab 02/02/22 [Amox-Clav 875-125
[2022-03-14 15:47] VITALS: BP 137/73; PULSE 85; RESP 19; TEMP 36.9; O2SAT 98
== END 2022-03-14 16:05 | disposition home or self-care (01) ==
PROVIDERS: Emergency Provider Nurse Practitioner; PCP Internal Medicine Adolescent Medicine
DX: J32.9 Chronic sinusitis, unspecified (principal); I10 Essential (primary) hypertension; I25.10 Atherosclerotic heart disease of native coronary artery without angina pectoris; Z79.899 Other long term (current) drug therapy
CPT/HCPCS: 99212; G0463

== ENCOUNTER 2022-06-20 12:07 | Emergency (ER) | payer MEDICARE, SELFPAY ==
[2022-06-20 12:30] VITALS: BP 157/91; PULSE 94; RESP 18; TEMP 36.7; O2SAT 96; BMI 38.0
--- NOTE | 2022-06-20 12:30 | EXP.UTC ---
Discharge Plan Disposition Patient Disposition: Home, Self-Care Condition: Good Prescriptions Prescriptions: New azithromycin [Zithromax] 250 mg tablet 250 mg PO UD DOSE PK Qty: 6 0RF Rx Instructions: Take two (2) tablets today, then one (1) tablet days #2 thru #5 benzonatate [benzonatate] 100 mg capsule 100 mg PO TIDP PRN (Reason: Cough) Qty: 30 0RF methylprednisolone 4 mg Tablets,Dose Pack 4 mg PO DIRECTED Qty: 21 0RF No Action rosuvastatin [Crestor] 10 mg tablet 10 mg PO HS desvenlafaxine succinate 50 mg tablet extended release 24 hr 50 mg PO DAILY Label Comments: TK 1 T PO QD albuterol sulfate 90 mcg/actuation HFA aerosol inhaler 1 inh INHALATION QID PRN (Reason: shortness of breath or wheezing) 90 Days Qty: 8.5 3RF budesonide-formoterol [Symbicort] 160-4.5 mcg/actuation HFA aerosol inhaler 2 puff INHALATION BID 90 Days Qty: 10.2 3RF fluticasone propionate [Flonase Allergy Relief] 50 mcg/actuation spray,suspension 2 spray INTRANASAL BID 90 Days Qty: 16 3RF Rx Instructions: administer into each nostril azelastine 137 mcg (0.1 %) aerosol,spray 2 spray NS BID 90 Days Qty: 30 3RF Rx Instructions: administer into each nostril montelukast 10 mg tablet 10 mg PO DAILY 90 Days Qty: 90 3RF alprazolam 0.5 mg tablet 0.5 mg PO BID PRN levothyroxine 88 mcg tablet 88 mcg PO DAILY losartan 50 mg tablet See Rx Instructions .ROUTE .COMPLEX Qty: 30 1RF Dose Instruction: TAKE 1/2 TABLET BY MOUTH EVERY DAY Rx Instructions: TAKE 1/2 TABLET BY MOUTH EVERY DAY guaifenesin 600 MG tablet extended release 12hr 1 - 2 tab PO BIDP PRN (Reason: Congestion) Qty: 30 0RF Referrals Referrals: Mervin Durand MD [Primary Care Provider] - Enter time for follow up Activity Restrictions/Add. Instructions Additional Instructions/Restrictions: Drink plenty of fluids. Take tylenol or ibuprofen for pain or fever. Take the medications as directed. Follow up with your regular doctor. GO TO THE ER FOR ANY WORSENING SYMPTOMS Don't start the oral steroids until tomorrow, since you had the shot here today. Clinical Impressions Clinical Impression: Sinusitis, Bronchitis Instructions Patient Instructions: Sinusitis, Acute Bronchitis, DI for Sinusitis Discharge ED Provider: Lam Emerson [facility] [place] HPI General Stated complaint: upper resp infection possible Time Seen by Provider: 06/20/22 12:29 History of Present Illness Provider Complaint: He states that for the past 2 weeks he has had sinus congestion, and chest congestion with a productive cough with yellowish sputum. Related Data Home Medications Medication Instructions Recorded Confirmed rosuvastatin 10 mg tablet (Crestor) 10 mg PO HS Cholesterol 10/08/18 03/21/22 alprazolam 0.5 mg tablet 0.5 mg PO BID PRN 10/21/19 03/21/22 desvenlafaxine succinate 50 mg 50 mg PO DAILY 03/15/21 03/21/22 tablet,extended release 24 hr levothyroxine 88 mcg tablet 88 mcg PO DAILY thyroid 03/15/21 03/21/22 Previous Rx's Medication Instructions Recorded guaifenesin 600 mg tablet, 1 - 2 tab PO BIDP PRN Congestion 02/02/22 extended release 12 hr #30 tabs losartan 50 mg tablet See Rx Instructions .Route 02/19/22 .COMPLEX #30 tabs albuterol sulfate 90 mcg/actuation 1 inh inhalation QID PRN shortness 03/12/22 aerosol inhaler of breath or wheezing 90 days #8.5 grams azelastine 137 mcg (0.1 %) nasal 2 spray intranasal BID 90 days #30 03/12/22 spray aerosol mL budesonide-formoterol HFA 160 2 puff inhalation BID 90 days 03/12/22 mcg-4.5 mcg/actuation aerosol #10.2 grams inhaler (Symbicort) fluticasone propionate 50 2 spray intranasal BID 90 days #16 03/12/22 mcg/actuation nasal grams spray,suspension (Flonase Allergy Relief) montelukast 10 mg tablet 10 mg PO DAILY 90 days #90 tabs 03/12/22 azithromycin 250 mg tablet 250 mg PO UD DOSE PK #6 tabs 06/20/22
[2022-06-20 13:16] VITALS: BP 157/91; PULSE 94; RESP 18; TEMP 36.7
== END 2022-06-20 13:16 | disposition home or self-care (01) ==
PROVIDERS: Emergency Provider Nurse Practitioner Family; PCP Internal Medicine Adolescent Medicine
DX: J20.9 Acute bronchitis, unspecified (principal); J06.9 Acute upper respiratory infection, unspecified; R94.31 Abnormal electrocardiogram [ECG] [EKG]; I45.2 Bifascicular block; I77.9 Disorder of arteries and arterioles, unspecified; Z79.51 Long term (current) use of inhaled steroids; Z79.52 Long term (current) use of systemic steroids
CPT/HCPCS: 96372; 99213; G0463; J0696

== ENCOUNTER → 2022-10-28 11:21 | Outpatient (CLI) | payer MEDICARE, OTHER, SELFPAY ==
[2022-10-31 14:18] LABS: D001-IgE D pteronyssinus <0.10 kU/L (Class 0); D002-IgE D farinae <0.10 kU/L (Class 0); E001-IgE Cat Dander <0.10 kU/L (Class 0); E005-IgE Dog Dander <0.10 kU/L (Class 0); E072-IgE Mouse Urine <0.10 kU/L (Class 0); G002-IgE Bermuda Grass <0.10 kU/L (Class 0); G006-IgE Timothy Grass <0.10 kU/L (Class 0); I006-IgE Cockroach, German <0.10 kU/L (Class 0); Immunoglobulin E, Total 11 IU/mL (6-495); M001-IgE Penicillium chrysogen <0.10 kU/L (Class 0); M002-IgE Cladosporium herbarum <0.10 kU/L (Class 0); M003-IgE Aspergillus fumigatus <0.10 kU/L (Class 0); M006-IgE Alternaria alternata <0.10 kU/L (Class 0); T001-IgE Maple/Box Elder <0.10 kU/L (Class 0); T003-IgE Common Silver Birch <0.10 kU/L (Class 0); T006-IgE Cedar, Mountain <0.10 kU/L (Class 0); T007-IgE Oak, White <0.10 kU/L (Class 0); T008-IgE Elm, American <0.10 kU/L (Class 0); T010-IgE Walnut <0.10 kU/L (Class 0); T011-IgE Maple Leaf Sycamore <0.10 kU/L (Class 0); T014-IgE Cottonwood <0.10 kU/L (Class 0); T015-IgE Ash, White <0.10 kU/L (Class 0); T022-IgE Pecan, Hickory <0.10 kU/L (Class 0); T070-IgE White Mulberry <0.10 kU/L (Class 0); W001-IgE Ragweed, Short <0.10 kU/L (Class 0); W011-IgE Thistle, Russian <0.10 kU/L (Class 0); W014-IgE Pigweed, Common <0.10 kU/L (Class 0); W018-IgE Sheep Sorrel <0.10 kU/L (Class 0)
== END ==
PROVIDERS: PCP Internal Medicine Adolescent Medicine; Visit Provider Otolaryngology
DX: J30.9 Allergic rhinitis, unspecified (principal); J32.9 Chronic sinusitis, unspecified
CPT/HCPCS: 36415; 82785; 86003

== ENCOUNTER → 2022-11-13 15:20 | Outpatient (CLI) | payer MEDICARE, SELFPAY ==
--- NOTE | 2022-11-13 15:20 | CT_ITS ---
FINAL REPORT TECHNIQUE: Thin section axial images were obtained through the paranasal sinuses without contrast. CLINICAL HISTORY: chronic sinusitis COMPARISON: 10/22/2020 FINDINGS: There is mucoperiosteal thickening in the left greater than right maxillary sinuses. Findings are worse since previous. The remaining paranasal sinuses are clear. There is no air-fluid level or significant mucosal thickening. The patient appears to be status post antrectomy. There is no significant nasal septal deviation. There is no acute osseous abnormality. Remaining soft tissues are within normal limits. IMPRESSION: Left greater than right maxillary sinusitis, likely chronic. Reviewed, Interpreted and Dictated by Yuli Byrne MD Transcribed by Natalie Stevenson Authenticated and [facility]
== END ==
PROVIDERS: PCP Internal Medicine Adolescent Medicine; Visit Provider Otolaryngology
DX: J32.8 Other chronic sinusitis (principal)
CPT/HCPCS: 70486

== ENCOUNTER → 2022-12-03 14:54 | Outpatient (CLI) | payer MEDICARE, SELFPAY | PROVIDERS: PCP Internal Medicine Adolescent Medicine; Visit Provider Otolaryngology | DX: G47.33 Obstructive sleep apnea (adult) (pediatric) (principal); R53.82 Chronic fatigue, unspecified; R06.83 Snoring | CPT/HCPCS: G0399 ==

== ENCOUNTER → 2023-01-19 11:44 | Outpatient (CLI) | payer MEDICARE, SELFPAY ==
--- NOTE | 2023-01-19 12:02 | ECG_ITS ---
APPROVED REPORT Exam: Resting ECG HR:77 bpm ECG Measurements Heart Rate 77 AXES OR 145 P 69 QRSd 141 QRS -71 QT 387 T 36 QTc 418 Conclusion SINUS RHYTHM RIGHT BUNDLE BRANCH BLOCK [120+ ms QRS DURATION, UPRIGHT V1, 40+ ms S IN I/aVL/V4/V5/V6] LEFT ANTERIOR FASCICULAR BLOCK [QRS AXIS <= -45, QR IN I, RS IN II] MINIMAL VOLTAGE CRITERIA FOR LVH, CONSIDER NORMAL VARIANT [MEETS CRITERIA IN ONE OF: R(aVL), S(V1), R(V5), R(V5/V6)+S(V1)] ABNORMAL ECG UNCONFIRMED REPORT Electronically signed by : Mervin Durand MD 01/20/2023 03:00:46
[2023-01-19 12:24] LABS: Basophils # 0.1 K/mm3 (0-0.2); Basophils % 0.8 % (0.1-2.0); Eosinophils # 0.3 K/mm3 (0.0-0.4); Eosinophils % 2.7 % (0.1-12.0); Hemoglobin 13.7 g/dL (14.1-18.0); Lymphocytes # 1.5 K/mm3 (0.7-4.5); Lymphocytes % 14.9 % (10-50); Mean Corpuscular HGB Conc 31.9 g/dL (31.8-35.4); Mean Corpuscular Hemoglobin 31.1 pg (27.0-31.2); Mean Corpuscular Volume 97.3 fl (80-94); Monocytes # 0.7 K/mm3 (0.1-1.0); Monocytes % 6.7 % (1.7-9.3); Neutrophils # 7.4 K/mm3 (1.8-7.8); Neutrophils % 74.8 % (37.0-80.0); Platelet Count 370 K/mm3 (142-424); Red Blood Count 4.42 M/mm3 (4.60-6.20); Red Cell Distribution Width 13.3 % (11.5-17.5); White Blood Count 9.9 K/mm3 (4.8-10.8)
[2023-01-19 12:56] LABS: Chloride 103 mmol/L (98-107); Sodium 138 mmol/L (136-145)
[2023-01-19 12:57] LABS: Potassium 4.8 mmoL/L (3.5-5.1)
[2023-01-19 12:59] LABS: Alanine Aminotransferase 35 U/L (12-78); Albumin Level 4.1 g/dl (3.5-5.0); Albumin/Globulin Ratio 1.6 (1.1-1.8); Alkaline Phosphatase 129 U/L (38-126); Anion Gap 10.8 mEq/L (5-15); Aspartate Amino Transferase 34 U/L (17-59); Bilirubin,Total 0.4 mg/dl (0.2-1.3); Blood Urea Nitrogen 26 mg/dl (9-20); Carbon Dioxide 29 mmol/L (22.0-30.0); Estimated Glomerular Filt Rate 59 ml/min (>60); GFR (African American) 71 ML/MIN (>60); Globulin 2.5 g/dL (1.3-3.2); Total Protein,Serum 6.6 g/dl (6.3-8.2)
[2023-01-19 13:00] LABS: Glucose 90 mg/dl (74-100)
== END ==
PROVIDERS: PCP Internal Medicine Adolescent Medicine; Visit Provider Otolaryngology
DX: J32.9 Chronic sinusitis, unspecified (principal); Z01.818 Encounter for other preprocedural examination
CPT/HCPCS: 36415; 80053; 85025; 93005

== ENCOUNTER 2023-02-04 10:00 | Day surgery (SDC) | payer MEDICARE, OTHER, SELFPAY ==
[2023-02-04] VITALS (10 sets, daily range): BP systolic 118–163; BP diastolic 44–97; PULSE 79–90; RESP 16–18; TEMP 36.2–43; O2SAT 93–99; BMI 26.1
--- NOTE | 2023-02-04 12:37 | P.OP_ITS ---
Date of procedure: 02/04/23 Pre-op Diagnosis:: Chronic sinusitis Post-op Diagnosis:: Chronic sinusitis Procedure performed:: Functional endoscopic sinus surgery with nasal endoscopy and bilateral maxillary antrostomies and removal of antral mucosa disease Surgeon:: Harrison Heredia MD HOTEL OPERATION MANAGER:: Topher Cespedes Anesthesia: GETSatinder Estimated blood loss (mL): 10 Operative findings:: Obstructed OMCs bilaterally, purulent material left maxillary sinus and cultures were obtained. He also had an ulcerated and infected area of the septum on the left side just medial to the middle turbinate and this area was debrided Operative note:: The patient was brought to the operating room and after adequate general anesthesia he was placed supine and the nose draped in the usual sterile fashion and 1% lidocaine with epinephrine used to locally infiltrate the septum and middle meatuses. Using a 0 degree sinus endoscope the right middle meatus was visualized in the middle turbinate medialized and then inflammatory polypoid mucosa there was partially obstructing the right maxillary sinus ostium was biopsied and then cleared with a microdebrider and then the maxillary sinus irrigated with normal saline until clear. Nova pack was placed in the right middle meatus and attention drawn left side in a similar fashion the middle turbinate was medialized and then obstructing inflammatory mucosa at the natural ostium the maxillary sinus was cleared and sent for biopsy and then the maxillary sinus ostium enlarged and cleared of obstructing mucosal disease to the maxillary sinus well aerated. Purulent material from within the maxillary sinus was cultured and then suctioned and irrigated clear. There was a small infected ulcerated area of the septum just medial to the middle turbinate on the left side and this was gently debrided with a microdebrider. Nova pack was placed in the left middle meatus and the procedure concluded. All counts correct. Blood loss minimal and he was sent to recovery in stable condition. Condition: stable Disposition: PACU Complications:: none
--- NOTE | 2023-02-04 12:40 | EXP.ANES.CKL ---
[facility] Disclaimer: The information contained in this section may have been updated after the patient was seen, as this information can be updated by other users. Medical History Abnormal EKG Allergic rhinitis, unspecified Bifascicular block Chronic bronchitis Chronic fatigue Chronic recurrent sinusitis Diastolic dysfunction Dysphagia Dyspnea on exertion Endothelial dysfunction of coronary artery History of 2019 novel coronavirus disease (COVID-19) Mediastinal lymphadenopathy Mild persistent asthma Non-seasonal allergic rhinitis Obstructive sleep apnea syndrome Pulmonary nodule, right Recurrent sinusitis Surgical History History of colonoscopy History of sinus surgery Family History Other Asthma Coronary artery disease Heart attack Hyperlipidemia Hypertension Stroke Thyroid disorder Social History (Updated 02/04/23 @ 10:31 by Rachelle Anderson RN) Smoking Status: Never smoker alcohol intake: never substance use type: denies use current occupational status: retired Travel in the last 8 weeks: None household members: significant other housing: house marital status: education level: master's degree service: Yes chcf: No current occupational exposures/hazards: No caffeine: Yes do you feel safe at home: Yes victim of physical abuse: No victim of emotional abuse: No victim of sexual abuse: No would you like helpful sources: No [facility] Anesthesia Checklist Patient Identification Patient Identification: Arm Band and Verbal (Name & ) Structural Data Admitted From: Home Planned Operative Procedure/s: FESS Consent for Planned Operative Procedure(s) Verified: Yes Verified Documents: Surgical Consent NPO Status Verified Time NPO: 00:00 Additional verifications Anesthesia Reactions: No Hx Blood Transfusions: No Blood Transfusion Reaction: No Airway Assessment C-Spine Mobility Assessed: Yes TMJ Mobility Assessed: Yes Dentition: Good Dentition Neurological Assessment Level of Consciousness: Awake, Alert and Appropriate Anesthesia Plan Anesthesia Risk discussed: Yes ASA Class: II Anesthesia Type: General
--- NOTE | 2023-02-04 12:41 | P.PNANES_ITS ---
[facility] Anesthesia Record Part I Anesthesia Record I Intake, IV Amount: 700 Estimated blood loss (mL): 50 Urine output (mL): 0 Blood Pressure: 126/77 SaO2: 93 Pulse Rate: 90 Respiratory Rate: 18 Temperature: 97.1 F Patient is:: Drowsy and Stable Stable to PACU at:: 12:39
--- NOTE | 2023-02-05 11:13 | EXP.ANES.II ---
[facility] Anesthesia Record Part II Anesthesia Record Part II Discharge Time: 13:09 Destination: Surgical Day Care (OP Surgery) PACU nurse assessment reviewed?: Yes Patient Condition:: Good Anesthesia Complications:: None Swallowing reflex intact?: Yes Cyanosis?: No Blood Pressure: 118/73 Pulse Rate: 89 Temperature: 97.4 F Mental Status: Alert & Oriented Pain level:: 0 Nausea and/or vomitting:: None Intake, IV Amount: 0
[2023-02-05 11:14] VITALS: BP 118/73; PULSE 89; TEMP 36.3
== END 2023-02-04 13:40 | disposition home or self-care (01) ==
PROVIDERS: PCP Internal Medicine Adolescent Medicine; Visit Provider Otolaryngology
PROC: (CPT 30520; principal; 2023-02-04 11:30)
DX: J32.9 Chronic sinusitis, unspecified (principal); Z79.899 Other long term (current) drug therapy
CPT/HCPCS: 31267; 87070; 87077; 87186; 88305; 96374; J2405

== ENCOUNTER 2023-11-25 16:01 | Outpatient (CLI) | payer MEDICARE, OTHER, SELFPAY ==
[2023-11-25 16:30] LABS: Basophils # 0.1 K/mm3 (0-0.2); Basophils % 0.5 % (0.1-2.0); Eosinophils # 0.3 K/mm3 (0.0-0.4); Eosinophils % 3.9 % (0.1-12.0); Lymphocytes # 1.5 K/mm3 (0.7-4.5); Lymphocytes % 16.9 % (10-50); Mean Corpuscular HGB Conc 32.5 g/dL (31.8-35.4); Mean Corpuscular Hemoglobin 32.1 pg (27.0-31.2); Mean Corpuscular Volume 98.8 fl (80-94); Mean Platelet Volume 7.6 fl (7.4-10.4); Monocytes # 0.6 K/mm3 (0.1-1.0); Monocytes % 6.4 % (1.7-9.3); Neutrophils # 6.4 K/mm3 (1.8-7.8); Neutrophils % 72.3 % (37.0-80.0); Platelet Count 277 K/mm3 (142-424); Red Blood Count 4.05 M/mm3 (4.60-6.20); Red Cell Distribution Width 13.6 % (11.5-17.5); White Blood Count 8.9 K/mm3 (4.8-10.8)
[2023-11-25 16:44] LABS: Alanine Aminotransferase 26 U/L (12-78); Albumin Level 3.7 g/dl (3.5-5.0); Alkaline Phosphatase 131 U/L (38-126); Anion Gap 13.5 mEq/L (5-15); Aspartate Amino Transferase 32 U/L (17-59); Bilirubin,Direct 0.1 mg/dl (0.0-0.4); Bilirubin,Indirect 0.3 mg/dL (0.0-0.9); Bilirubin,Total 0.4 mg/dl (0.2-1.3); Bilirubin,Unconjugated 0.3 mg/dL (0.0-1.1); Blood Urea Nitrogen 27 mg/dl (9-20); Calcium 9.1 mg/dl (8.4-10.2); Carbon Dioxide 25 mmol/L (22.0-30.0); Chloride 105 mmol/L (98-107); Cholesterol 133 mg/dl (140-200); Estimated Glomerular Filt Rate 59 ml/min (>60); GFR (African American) 71 ML/MIN (>60); Glucose 99 mg/dl (74-100); HDL Cholesterol 45 mg/dl (40-60); Potassium 4.5 mmoL/L (3.5-5.1); Sodium 139 mmol/L (136-145); Total Protein,Serum 6.3 g/dl (6.3-8.2); Triglycerides 85 mg/dl (30-150); VLDL Cholesterol 17 mg/dL (0-40)
[2023-11-25 16:54] LABS: Direct LDL Cholesterol 71.07 mg/dL (100-129)
[2023-11-25 17:14] LABS: Thyroid Stimulating Hormone 0.86 uIU/mL (0.465-4.68)
== END 2023-11-25 23:59 ==
LOC: LAB 16:02
PROVIDERS: PCP Internal Medicine Adolescent Medicine; Visit Provider Physician Assistant
DX: R06.00 Dyspnea, unspecified; I45.2 Bifascicular block; B33.20 Viral carditis, unspecified; E78.5 Hyperlipidemia, unspecified; R94.31 Abnormal electrocardiogram [ECG] [EKG]; I11.9 Hypertensive heart disease without heart failure; E11.9 Type 2 diabetes mellitus without complications
CPT/HCPCS: 36415; 80048; 80061; 80076; 84439; 84443; 85025

== ENCOUNTER 2023-12-02 08:33 | Outpatient (CLI) | payer MEDICARE, OTHER, SELFPAY ==
--- NOTE | 2023-12-02 08:33 | CA_ITS ---
APPROVED REPORT EXAM: Comprehensive 2D, Doppler, and color-flow Echocardiogram [employer]aker [employer]sembler: Paris Negron RT(R) Ht: 6 ft 1 in Wt: 190lbs BSA: 2.11 BP: 109/68 mmHg Indications: abn EKG, HTN, hyperlipidemia, DD, CORIE, hx viral carditis 2D Dimensions LVEF (Segovia's) 47.80 % M: 52 - 72 LV Volume 89.50 mL M: 62 - 150 LV Volume Index 42.4 mL/m2 M: 34 - 74 LA Volume 38.40 mL LA Volume Index 18.20 mL/m2 (M/F) 16-34 EF AP4 52.40 % EF AP2 49.4 % EF BP 47.8 % GL Strain -18.1 % M-Mode Dimensions RVDd 3.50 cm (0.9-2.6) LA Diam 3.67 cm (1.9-4.0) LVDd 5.10 cm (3.5-5.7) LVDs 3.78 cm (3.5-5.7) IVSd 1.21 cm (0.6-1.1) PWd 1.04 cm (0.6-1.1) EF (Teich) 50.60% FS 25.90% EDV (Teich) 123.80 mL ESV (Teich) 61.20 mL LV Diastology E Decel Time 323 (160-240 msec) E/A Ratio 0.9 Aortic Valve SILVERIO Index 0.99 cm2/m2 AoV Peak Ramez. 164.0 (50-130 cm/s) AO Peak GR. 10.80 mmHg AO Mean GR. 5.30 (<5 mmHg) AO VTI 30.0 (18-25 cm) SILVERIO (VTI) 2.13 (2.5-4.5 cm2) Mitral Valve MV E Max Ramez. 54.0 (40-130 cm/s) MV A Velocity 61.0 (40-130 cm/s) E/A Ratio 0.89 MV PHT 95.0 ms Tricuspid Valve TR P. Velocity 259.00 cm/s RAP Estimate 10.00 mmHg RVSP 36.80 mmHg Left Ventricle The left ventricle is normal size. The left ventricular systolic function is normal. The left ventricular ejection fraction is within the normal range. There is increased LV wall thickness. There is normal LV segmental wall motion. The left ventricular diastolic function is normal. LVEF is 55%. Right Ventricle Right ventricle is mild to moderately dilated. Right ventricle is mildly hypokinetic. Atria The left atrium size is normal. The right atrium size is normal. There is no Doppler evidence of interatrial shunt. Aortic Valve The aortic valve is mildly thickened. There is no aortic valvular stenosis. Trace aortic regurgitation. Mitral Valve The mitral valve is mildly thickened. No evidence of mitral valve stenosis. Mild mitral regurgitation. Tricuspid Valve The tricuspid valve leaflets are thin and pliable. Mild to moderate tricuspid regurgitation. RVSP is 30-35 mmHg. Pulmonic Valve The pulmonary valve is normal in structure. Trace pulmonic regurgitation. Great Vessels The aortic root is normal in size. The ascending aorta is normal in size. IVC is normal in size and collapses >50% with inspiration. Pericardium There is no pericardial effusion. Other Information Study Quality: Fair Conclusion Normal LV systolic function (LVEF 55%). Mild to moderate RV dilation with mild reduction in RV function. Mild MR. Mild to moderate TR. Mild PI. RVSP 30-35 mmHg. Electronically signed by : Yin Valentine MD 12/06/2023 14:42:52
== END 2023-12-02 23:59 ==
LOC: RT 08:33
PROVIDERS: PCP Internal Medicine Adolescent Medicine; Visit Provider Physician Assistant
DX: R94.31 Abnormal electrocardiogram [ECG] [EKG]; I45.2 Bifascicular block; B33.20 Viral carditis, unspecified; E78.5 Hyperlipidemia, unspecified; I11.9 Hypertensive heart disease without heart failure
CPT/HCPCS: 93306

== ENCOUNTER 2023-12-11 07:16 | Outpatient (CLI) | payer MEDICARE, OTHER, SELFPAY ==
--- NOTE | 2023-12-11 07:20 | CT_ITS ---
FINAL REPORT TECHNIQUE: Axial images through the abdomen and pelvis were performed without contrast. This study was performed with techniques to keep radiation doses as low as reasonably achievable, (ALARA). Individualized dose reduction techniques using automated exposure control or adjustment of mA and/or kV according to the patient's size were employed. CLINICAL HISTORY: HEMATURIA FINDINGS: ABDOMEN: There are mild patchy ground-glass opacities in the lung bases, may represent edema or early pneumonia. The heart size is normal. Limited images of the liver are unremarkable. There is nonspecific gallbladder wall thickening with a gallstone, cholelithiasis is not excluded. The spleen is normal. No adrenal mass is identified. The aorta is normal in caliber. There is no significant free fluid or adenopathy. There is no nephrolithiasis. There is no hydronephrosis. PELVIS: The appendix is normal. There is an umbilical hernia containing fat. There is sigmoid diverticulosis without evidence of diverticulitis. Bladder wall thickening is identified. No ureteral stones are seen. There is dextroscoliosis and degenerative change in the lumbar spine. There is no significant free fluid or adenopathy. IMPRESSION: Ground-glass opacities, may represent edema or early pneumonia. Gallstone with gallbladder wall thickening, cholelithiasis is not excluded. Nuclear medicine hepatobiliary scan may be helpful. Mild bladder wall thickening. Reviewed, Interpreted and Dictated by Jose Solorio III, MD Transcribed by Natalie Stevenson Authenticated and [facility]
== END 2023-12-11 23:59 ==
PROVIDERS: PCP Internal Medicine Adolescent Medicine; Visit Provider Nurse Practitioner Family
DX: R31.29 Other microscopic hematuria (principal)
CPT/HCPCS: 74176

== ENCOUNTER 2024-02-24 12:03 | Outpatient (CLI) | payer MEDICARE, OTHER, SELFPAY ==
[2024-02-24 12:10] VITALS: BMI 23.7
[2024-02-24 12:20] VITALS: BP 103/59; PULSE 81; RESP 18; TEMP 37.2; O2SAT 99
[2024-02-24] MEDS: 0.9 % SODIUM CHLORIDE 1000ML 1,000 ML 999 ML IV (12:20)
[2024-02-24 12:23] LABS: Basophils # 0.1 K/mm3 (0-0.2); Basophils % 0.7 % (0.1-2.0); Eosinophils # 0.4 K/mm3 (0.0-0.4); Eosinophils % 5.5 % (0.1-12.0); Hematocrit 41.3 % (42.0-52.0); Hemoglobin 13.3 g/dL (14.1-18.0); Lymphocytes # 1.2 K/mm3 (0.7-4.5); Lymphocytes % 16.3 % (10-50); Mean Corpuscular HGB Conc 32.1 g/dL (31.8-35.4); Mean Corpuscular Hemoglobin 32.4 pg (27.0-31.2); Mean Corpuscular Volume 100.8 fl (80-94); Mean Platelet Volume 7.8 fl (7.4-10.4); Monocytes # 0.5 K/mm3 (0.1-1.0); Monocytes % 7.2 % (1.7-9.3); Neutrophils # 5.1 K/mm3 (1.8-7.8); Neutrophils % 70.2 % (37.0-80.0); Platelet Count 315 K/mm3 (142-424); Red Cell Distribution Width 14.3 % (11.5-17.5); White Blood Count 7.2 K/mm3 (4.8-10.8)
[2024-02-24 12:31] LABS: Alanine Aminotransferase 31 U/L (12-78); Albumin Level 3.5 g/dl (3.5-5.0); Albumin/Globulin Ratio 1.2 (1.1-1.8); Alkaline Phosphatase 216 U/L (38-126); Anion Gap 9.9 mEq/L (5-15); Aspartate Amino Transferase 36 U/L (17-59); Bilirubin,Total 0.4 mg/dl (0.2-1.3); Blood Urea Nitrogen 26 mg/dl (9-20); Carbon Dioxide 27 mmol/L (22.0-30.0); Chloride 104 mmol/L (98-107); Creatinine Clearance Estimated 53 mL/min (50-200); Estimated Glomerular Filt Rate 49 ml/min (>60); GFR (African American) 60 ML/MIN (>60); Glucose 148 mg/dl (74-100); Potassium 3.9 mmoL/L (3.5-5.1); Sodium 137 mmol/L (136-145); Total Protein,Serum 6.5 g/dl (6.3-8.2)
[2024-02-24 13:20] VITALS: BP 110/56; PULSE 82
[2024-02-24 13:39] LABS: Adenovirus F 40/41, stool Not Detected (NotDetected); Astrovirus Not Detected (NotDetected); Clostridium Difficile A/B, PCR Not Detected (NotDetected); Cryptosporidium Not Detected (NotDetected); Cyclospora Cayetanesis Not Detected (NotDetected); Entamoeba histolytica Not Detected (NotDetected); Enteroaggregative E coli Not Detected (NotDetected); Enteropathogenic E coli Not Detected (NotDetected); Enterotoxigenic E coli Not Detected (NotDetected); Giardia lamblia Not Detected (NotDetected); Norovirus Not Detected (NotDetected); Plesimonas Shigalloides, PCR Not Detected (NotDetected); Rotavirus A Not Detected (NotDetected); Salmonella, PCR Not Detected (NotDetected); Sapovirus Not Detected (NotDetected); Shiga-like toxin E coli Not Detected (NotDetected); Shigella Enterovasive E coli Not Detected (NotDetected); Vibrio Cholerae Not Detected (NotDetected); Vibrio, PCR Not Detected (NotDetected); Yersinia Entercolitica, PCR Not Detected (NotDetected)
[2024-02-25 18:10] LABS: Giardia lamblia Ag, EIA Negative (Negative)
[2024-02-26 08:53] LABS: Campylobacter Detected (NotDetected)
== END 2024-02-24 13:29 | disposition home or self-care (01) ==
LOC: INF 12:04
PROVIDERS: PCP Internal Medicine Adolescent Medicine; Visit Provider Internal Medicine Adolescent Medicine
DX: A09 Infectious gastroenteritis and colitis, unspecified (principal); A04.5 Campylobacter enteritis; E86.0 Dehydration
CPT/HCPCS: 36415; 80053; 83735; 85025; 87324; 87506; 96360

== ENCOUNTER 2024-03-03 07:20 | Outpatient (CLI) | payer MEDICARE, OTHER, SELFPAY ==
--- NOTE | 2024-03-03 07:26 | US_ITS ---
FINAL REPORT CLINICAL HISTORY: ASYMPTIMATIC CHOLELITHIASIS COMPARISON: None FINDINGS: Sonographic images of the right upper quadrant were obtained. The pancreas is partially obscured.The liver has an unremarkable appearance. There is a single echogenic mobile focus noted in the gallbladder consistent with a gallstone. There is no evidence of biliary ductal dilatation.The common duct measures 3 mm. Limited images of the right kidney are unremarkable. IMPRESSION: Single echogenic mobile focus in the gallbladder consistent with a gallstone. No evidence of biliary ductal dilatation is present. Reviewed, Interpreted and Dictated by Jose Solorio III, MD Transcribed by Missy Silvestre Authenticated and [facility]
== END 2024-03-03 23:59 | disposition home or self-care (01) ==
LOC: RAD 07:22
PROVIDERS: PCP Internal Medicine Adolescent Medicine; Visit Provider Nurse Practitioner Family
DX: K80.20 Calculus of gallbladder without cholecystitis without obstruction (principal)
CPT/HCPCS: 76705

== ENCOUNTER 2024-05-04 13:35 | Outpatient (CLI) | payer MEDICARE, OTHER, SELFPAY ==
[2024-05-04 13:44] LABS: Microscopic, Urine URINE MICROSCOPIC (MICROSCOPIC)
[2024-05-04 14:11] LABS: Hematocrit 39.1 % (42.0-52.0); Hemoglobin 12.6 g/dL (14.1-18.0); Mean Corpuscular HGB Conc 32.3 g/dL (31.8-35.4); Mean Corpuscular Hemoglobin 33.1 pg (27.0-31.2); Mean Corpuscular Volume 102.6 fl (80-94); Platelet Count 250 K/mm3 (142-424); Red Blood Count 3.82 M/mm3 (4.60-6.20); Red Cell Distribution Width 14.1 % (11.5-17.5); White Blood Count 5.7 K/mm3 (4.8-10.8)
[2024-05-04 14:58] LABS: Anion Gap 11.3 mEq/L (5-15); Blood Urea Nitrogen 26 mg/dl (9-20); Calcium 9.3 mg/dl (8.4-10.2); Carbon Dioxide 30 mmol/L (22.0-30.0); Chloride 102 mmol/L (98-107); Estimated Glomerular Filt Rate 65 ml/min (>60); GFR (African American) 79 ML/MIN (>60); Glucose 116 mg/dl (74-100); Phosphorous 4.3 mg/dl (2.5-4.5); Potassium 4.3 mmoL/L (3.5-5.1); Sodium 139 mmol/L (136-145)
[2024-05-04 15:04] LABS: Appearance,Urine CLEAR (Clear); Bilirubin,Urine Negative (Negative); Blood, Urine 1+ (Negative); Color,Urine YELLOW (Yellow); Glucose,Urine (UA) Negative (Negative); Ketones,Urine Negative (Negative); Leukocyte Esterase,Urine Negative (Negative); Nitrate,Urine Negative (Negative); Protein,Urine Negative (Negative); Urobilinogen,Urine 0.2 EU/dl (0.2)
[2024-05-04 15:20] LABS: Squamous Epithelial Cell,Urine Occasional #/hpf (0-5)
[2024-05-04 15:30] LABS: Iron 132 ug/dL (49-181)
[2024-05-04 15:43] LABS: Total Iron Binding Capacity 291 ug/dL (261-462)
[2024-05-04 16:08] LABS: Microalbumin/Creatinine Ratio 57.4
[2024-05-04 16:10] LABS: Ferritin 41.8 ng/ml (17.9-464)
[2024-05-04 16:21] LABS: Creatinine,Urine Random 55 mg/dL (Not Estab.)
[2024-05-04 19:45] LABS: Vitamin B12 864 pg/mL (239-931)
== END 2024-05-04 23:59 | disposition home or self-care (01) ==
LOC: LAB 13:37
PROVIDERS: PCP Internal Medicine Adolescent Medicine; Visit Provider Nurse Practitioner
DX: D64.9 Anemia, unspecified (principal); N18.31 Chronic kidney disease, stage 3a; Z98.890 Other specified postprocedural states
CPT/HCPCS: 36415; 80069; 81001; 82043; 82570; 82607; 82728; 83540; 83550; 84156; 85014; 85018; 85048; 85049

== ENCOUNTER 2024-06-13 16:00 | Outpatient (CLI) | payer MEDICARE, OTHER, SELFPAY ==
[2024-06-13 15:30] LABS: Microscopic, Urine URINE MICROSCOPIC (MICROSCOPIC)
[2024-06-13 17:00] LABS: Appearance,Urine CLEAR (Clear); Bilirubin,Urine Negative (Negative); Blood, Urine TRACE-I (Negative); Color,Urine YELLOW (Yellow); Glucose,Urine (UA) Negative (Negative); Ketones,Urine Negative (Negative); Leukocyte Esterase,Urine Negative (Negative); Nitrate,Urine Negative (Negative); Protein,Urine Negative (Negative); Urobilinogen,Urine 0.2 EU/dl (0.2)
[2024-06-13 17:39] LABS: RBC,Urine Occasional #/hpf (0-3)
== END 2024-06-13 23:59 | disposition home or self-care (01) ==
LOC: LAB.DROPOF 16:00
PROVIDERS: PCP Urology; Visit Provider Urology
DX: R31.9 Hematuria, unspecified (principal); N52.9 Male erectile dysfunction, unspecified
CPT/HCPCS: 81001

== ENCOUNTER 2024-08-26 10:17 | Outpatient (CLI) | payer MEDICARE, OTHER, SELFPAY ==
[2024-08-26 10:26] LABS: Microscopic, Urine URINE MICROSCOPIC (MICROSCOPIC)
[2024-08-26 10:55] LABS: Hematocrit 41.2 % (42.0-52.0); Hemoglobin 13.2 g/dL (14.1-18.0); Mean Corpuscular HGB Conc 32.1 g/dL (31.8-35.4); Mean Corpuscular Hemoglobin 32.7 pg (27.0-31.2); Mean Corpuscular Volume 101.9 fl (80-94); Platelet Count 265 K/mm3 (142-424); Red Blood Count 4.04 M/mm3 (4.60-6.20); Red Cell Distribution Width 13.3 % (11.5-17.5); White Blood Count 5.3 K/mm3 (4.8-10.8)
[2024-08-26 11:20] LABS: Chloride 105 mmol/L (98-107); Potassium 5.1 mmoL/L (3.5-5.1); Sodium 139 mmol/L (136-145)
[2024-08-26 11:23] LABS: Anion Gap 11.1 mEq/L (5-15); Blood Urea Nitrogen 22 mg/dl (9-20); Calcium 8.8 mg/dl (8.4-10.2); Carbon Dioxide 28 mmol/L (22.0-30.0); Estimated Glomerular Filt Rate 65 ml/min (>60); GFR (African American) 79 ML/MIN (>60); Glucose 117 mg/dl (74-100); Iron 88 ug/dL (49-181); Phosphorous 3.9 mg/dl (2.5-4.5)
[2024-08-26 11:33] LABS: Total Iron Binding Capacity 272 ug/dL (261-462)
[2024-08-26 11:58] LABS: Ferritin 56.3 ng/ml (17.9-464)
[2024-08-26 12:04] LABS: Appearance,Urine CLEAR (Clear); Bilirubin,Urine Negative (Negative); Blood, Urine TRACE-I (Negative); Color,Urine YELLOW (Yellow); Glucose,Urine (UA) Negative (Negative); Ketones,Urine Negative (Negative); Leukocyte Esterase,Urine Negative (Negative); Nitrate,Urine Negative (Negative); Protein,Urine Negative (Negative); Urobilinogen,Urine 0.2 EU/dl (0.2)
[2024-08-26 12:16] LABS: Creatinine,Urine Random 52 mg/dL (Not Estab.)
[2024-08-26 12:18] LABS: Microalbumin/Creatinine Ratio 40.1
[2024-08-26 12:26] LABS: Squamous Epithelial Cell,Urine Occasional #/hpf (0-5)
[2024-08-26 13:17] LABS: Vitamin B12 970 pg/mL (239-931)
[2024-08-29 15:10] LABS: Free Kappa Lt Chains 21.5 mg/L (3.3-19.4)
== END 2024-08-26 23:59 | disposition home or self-care (01) ==
LOC: LAB 10:19
PROVIDERS: PCP Internal Medicine Adolescent Medicine; Visit Provider Nurse Practitioner
DX: N18.31 Chronic kidney disease, stage 3a (principal); D64.9 Anemia, unspecified
CPT/HCPCS: 36415; 80069; 81001; 82043; 82570; 82607; 82728; 83540; 83550; 83883; 84156; 85027

== ENCOUNTER 2024-11-23 07:36 | Outpatient (CLI) | payer MEDICARE, OTHER, SELFPAY ==
[2024-11-23 09:24] LABS: Albumin Level 4.1 g/dl (3.5-5.0)
[2024-11-23 09:27] LABS: Albumin Level 4.1 g/dl (3.5-5.0); Chloride 103 mmol/L (98-107); Sodium 139 mmol/L (136-145)
[2024-11-23 09:27] LABS: Alanine Aminotransferase 30 U/L (12-78); Alkaline Phosphatase 81 U/L (38-126); Aspartate Amino Transferase 37 U/L (17-59); Bilirubin,Direct 0.1 mg/dl (0.0-0.4); Bilirubin,Indirect 0.5 mg/dL (0.0-0.9); Bilirubin,Total 0.6 mg/dl (0.2-1.3); Bilirubin,Unconjugated 0.5 mg/dL (0.0-1.1); Chol/HDL Ratio 4.9 (1-3.5); Cholesterol 210 mg/dl (140-200); HDL Cholesterol 43 mg/dl (40-60); Total Protein,Serum 6.4 g/dl (6.3-8.2); Triglycerides 105 mg/dl (30-150); VLDL Cholesterol 21 mg/dL (0-40)
[2024-11-23 09:29] LABS: Alanine Aminotransferase 31 U/L (12-78); Aspartate Amino Transferase 38 U/L (17-59); Blood Urea Nitrogen 26 mg/dl (9-20); Carbon Dioxide 29 mmol/L (22.0-30.0); Estimated Glomerular Filt Rate 65 ml/min (>60); GFR (African American) 79 ML/MIN (>60)
[2024-11-23 09:30] LABS: Albumin/Globulin Ratio 1.8 (1.1-1.8); Alkaline Phosphatase 81 U/L (38-126); Bilirubin,Total 0.6 mg/dl (0.2-1.3); Calcium 9.3 mg/dl (8.4-10.2); Globulin 2.3 g/dL (1.3-3.2); Glucose 81 mg/dl (74-100); Total Protein,Serum 6.4 g/dl (6.3-8.2)
[2024-11-23 09:38] LABS: Direct LDL Cholesterol 128.34 mg/dL (100-129)
[2024-11-23 09:55] LABS: Basophils # 0.1 K/mm3 (0-0.2); Eosinophils # 0.3 K/mm3 (0.0-0.4); Hematocrit 41.4 % (42.0-52.0); Hemoglobin 14.1 g/dL (14.1-18.0); Lymphocytes # 1.5 K/mm3 (0.7-4.5); Lymphocytes % 29.2 % (10-50); Mean Corpuscular HGB Conc 34.1 g/dL (31.8-35.4); Mean Corpuscular Hemoglobin 33.5 pg (27.0-31.2); Mean Corpuscular Volume 98.3 fl (80-94); Monocytes # 0.6 K/mm3 (0.1-1.0); Monocytes % 11.1 % (1.7-9.3); Neutrophils # 2.7 K/mm3 (1.8-7.8); Neutrophils % 52.5 % (37.0-80.0); Platelet Count 250 K/mm3 (142-424); Red Blood Count 4.21 M/mm3 (4.60-6.20); Red Cell Distribution Width 12.7 % (11.5-17.5)
[2024-11-23 09:57] LABS: Thyroid Stimulating Hormone 5.58 uIU/mL (0.465-4.68)
[2024-11-23 11:40] LABS: Free T4 (Free Thyroxine) 0.86 ng/dl (0.78-2.19)
== END 2024-11-23 23:59 | disposition home or self-care (01) ==
LOC: LAB 07:40
PROVIDERS: Nurse Practitioner Family; PCP Internal Medicine Adolescent Medicine; Visit Provider Nurse Practitioner
DX: R06.00 Dyspnea, unspecified (principal); I11.9 Hypertensive heart disease without heart failure; E78.5 Hyperlipidemia, unspecified; I45.2 Bifascicular block; B33.20 Viral carditis, unspecified; R94.31 Abnormal electrocardiogram [ECG] [EKG]
CPT/HCPCS: 36415; 80053; 80061; 80076; 84439; 84443; 85025

== ENCOUNTER 2025-03-08 11:04 | Day surgery (SDC) | payer MEDICARE, OTHER, SELFPAY ==
[2025-03-07 12:10] VITALS: BMI 22.5
[2025-03-08] MEDS: LACTATED RINGERS 1000ML 1,000 ML 50 ML IV (11:26)
[2025-03-08 11:27] VITALS: BP 146/74; PULSE 65; RESP 16; TEMP 36.4; O2SAT 100
--- NOTE | 2025-03-08 11:57 | P.PNANES_ITS ---
[facility] Disclaimer: The information contained in this section may have been updated after the patient was seen, as this information can be updated by other users. Medical History Chronic sinusitis Pulmonary arterial hypertension Positive nasal culture for methicillin resistant Staphylococcus aureus Allergic rhinitis, unspecified Obstructive sleep apnea syndrome Chronic fatigue Dysphagia Recurrent sinusitis Chronic bronchitis Chronic recurrent sinusitis Mild persistent asthma Non-seasonal allergic rhinitis Mediastinal lymphadenopathy Pulmonary nodule, right Dyspnea on exertion History of 2019 novel coronavirus disease (COVID-19) Abnormal EKG Bifascicular block Endothelial dysfunction of coronary artery Diastolic dysfunction Surgical History H/O nasal septoplasty History of sinus surgery History of colonoscopy Family History Other Asthma Coronary artery disease Heart attack Hyperlipidemia Hypertension Stroke Thyroid disorder Social History Smoking Status: Never smoker alcohol intake: never substance use type: denies use current occupational status: retired Travel in the last 8 weeks?: None household members: significant other housing: house marital status: education level: master's degree service: Yes residential: No current occupational exposures/hazards: No caffeine: Yes do you feel safe at home: Yes victim of physical abuse: No victim of emotional abuse: No victim of sexual abuse: No would you like helpful sources: No Have you lived/traveled outside [place] in past 30 days?: No Contact w/someone who lives/traveled outside US past 30 days?: No Exposure to someone with infectious disease in past 14 days?: No Do you have a fever (greater than 100.4 F or 38 C)?: No Have you tested positive for COVID-19?: No Exposed to someone with COVID-19 in past 14 days?: No Do you have a sore throat?: No Do you have a cough?: No Do you have any weakness?: No Do you have any diarrhea?: No Are you experiencing any unusual bleeding?: No Do you have any muscle aches/pain?: No Do you have any abdominal pain?: No Are you experiencing loss of taste or smell?: No [facility] Anesthesia Checklist Patient Identification Patient Identification: Verbal (Name & ) Structural Data Admitted From: Home Planned Operative Procedure/s: colonoscopy Consent for Planned Operative Procedure(s) Verified: Yes NPO Status Verified Time NPO: 00:00 Additional verifications Anesthesia Reactions: No Hx Blood Transfusions: No Blood Transfusion Reaction: No Airway Assessment Mallampati Score:: Class II C-Spine Mobility Assessed: Yes TMJ Mobility Assessed: Yes Dentition: Good Dentition Neurological Assessment Level of Consciousness: Awake, Alert and Appropriate Anesthesia Plan Anesthesia Risk discussed: Yes Anesthesia Plan: Verified ASA Class: III Anesthesia Type: MAC
[2025-03-08 12:24] VITALS: O2SAT 100
--- NOTE | 2025-03-08 12:32 | EXP.HP ---
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 The examination is deemed medically necessary for diagnostic colonoscopy. The patient has been seen, interviewed and examined prior to the procedure by both myself and the anesthesia provider. [facility] Disclaimer: The information contained in this section may have been updated after the patient was seen, as this information can be updated by other users. Medical History (Updated 03/08/25 @ 12:33 by Orestes Farris II, MD) Chronic sinusitis Pulmonary arterial hypertension Positive nasal culture for methicillin resistant Staphylococcus aureus Allergic rhinitis, unspecified Obstructive sleep apnea syndrome Chronic fatigue Dysphagia Recurrent sinusitis Chronic bronchitis Chronic recurrent sinusitis Mild persistent asthma Non-seasonal allergic rhinitis Mediastinal lymphadenopathy Pulmonary nodule, right Dyspnea on exertion History of 2019 novel coronavirus disease (COVID-19) Abnormal EKG Bifascicular block Endothelial dysfunction of coronary artery Diastolic dysfunction Surgical History H/O nasal septoplasty History of sinus surgery History of colonoscopy Family History Other Asthma Coronary artery disease Heart attack Hyperlipidemia Hypertension Stroke Thyroid disorder Social History Smoking Status: Never smoker alcohol intake: never substance use type: denies use current occupational status: retired Travel in the last 8 weeks?: None household members: significant other housing: house marital status: education level: master's degree service: Yes retirement: No current occupational exposures/hazards: No caffeine: Yes do you feel safe at home: Yes victim of physical abuse: No victim of emotional abuse: No victim of sexual abuse: No would you like helpful sources: No Have you lived/traveled outside US in past 30 days?: No Contact w/someone who lives/traveled outside [place] past 30 days?: No Exposure to someone with infectious disease in past 14 days?: No Do you have a fever (greater than 100.4 F or 38 C)?: No Have you tested positive for COVID-19?: No Exposed to someone with COVID-19 in past 14 days?: No Do you have a sore throat?: No Do you have a cough?: No Do you have any weakness?: No Do you have any diarrhea?: No Are you experiencing any unusual bleeding?: No Do you have any muscle aches/pain?: No Do you have any abdominal pain?: No Are you experiencing loss of taste or smell?: No Other Medical History Have you received the Flu Vaccine for this season: No Have you received the Pneumonia Vaccine: Yes Review of Systems Review of Systems Review of systems (narrative): Negative *Cardiovascular Comments: Negative *Gastrointestinal Comments: Negative *Genitourinary Comments: Negative *Musculoskeletal Comments: Negative *Neurologic Comments: Negative Meds Home Medications and Allergies Home Medications ?Medication ?Instructions ?Recorded ?Confirmed ?Type azelastine 137 mcg (0.1 %) nasal 2 spray intranasal BID 12/02/23 03/08/25 History spray ferrous sulfate 325 mg (65 mg 325 mg PO DAILY 01/20/24 03/08/25 History iron) tablet (FeroSul) levothyroxine 100 mcg tablet 100 mcg PO DAILY 12/02/24 03/08/25 History sertraline 50 mg tablet 25 mg PO DAILY Antidepressant 12/02/24 03/08/25 History budesonide 32 mcg/actuation nasal 2 spray intranasal DAILY #8.43 mL 01/17/25 03/08/25 Rx spray fluticasone propionate 50 2 spray intranasal DAILY #16 grams 01/17/25 03/08/25 Rx mcg/actuation nasal spray,suspension alprazolam 0.5 mg tablet 0.5 mg PO NEEDED PRN Anxiety 01/24/25 03/08/25 History losartan 25 mg tablet 12.5 mg PO DAILY 03/07/25 03/08/25 History New Prescriptions to Start Prescriptions: Allergies Allergy/AdvReac Type Severity Reaction Status Date / Time No Known Allergies Allergy Verified 03/08/25 11:23 Exam Data for Last 24 hours Vital signs and Labs for Last 24 Hours: Temp Pulse Resp BP Pulse Ox O2 Del Method O2 Flow Rate 97.6 F 65 16 146/74 H 100 Nasal Cannula 5 03/08/25 11:27 03/08/25 11:27 03/08/25 11:27 03/08/25 11:27 03/08/25 11:27 03/08/25 12:24 03/08/25 12:24 I & O for Last 24 hours: Intake & Output 03/05/25 03/06/25 03/07/25 03/08/25 23:59 23:59 23:59 23:59 Weight 171 lb *Routine HEENT Exam Head: Present normocephalic Eye: Present EOMI and PERRL ENT: Present mucous membranes moist *Routine Neck Exam Neck: Present supple *Routine Respiratory Exam Respiratory: Present CTA bilaterally *Routine Cardiovascular Exam Cardiovascular: Present RRR *Routine Abdominal Exam Abdominal: Present soft and normoactive bowel sounds; Absent tenderness *Routine Rectal Exam Rectal:: deferred *Routine Genitalia Exam Genitalia:: deferred *Routine Extremities Exam Extremities: Absent cyanosis, clubbing or edema *Routine Skin Exam Skin: Present warm; Absent rash *Routine Neurological Exam Neurological: Present alert and oriented X3 Assessment and Plan *Assessment and plan (1) Iron deficiency anemia: Status: Acute Category: Medical Code(s): D50.9 - Iron deficiency anemia, unspecified Plan A/P: 1. Iron deficiency anemia is the preprocedural diagnosis. The patient will be anesthetized/sedated using MAC sedation. The patient has been seen and examined. Cardiac and lung assessment prior to the examination is stable. Proceed with planned diagnostic colonoscopy.
--- NOTE | 2025-03-08 12:35 | HMH.PROCNOTE ---
[facility] Procedure Note Date: 03/08/25 Time: 12:48 Procedure Note:: Colonoscopy Procedure Report: Colonoscopy with cold snare polypectomy Endoscopist: Orestes Farris II, MD Referring physician: Mervin Durand M.D. Date of Procedure: March 08, 2025 Equipment: Olympus 190 variable stiffness pediatric colonoscope Sedation: MAC sedation Indication: Mr. Agosto is a 79-year-old gentleman who is here for diagnostic colonoscopy secondary to anemia. The patient does state that he has had iron deficiency anemia yet lab work from April 2024 and August 2024 showed that his iron levels are normal. Most recently, his serum iron in August 2024 was 88 with iron saturation 32% and ferritin 56.3. Additionally, his anemia is mostly macrocytic (not microcytic). The patient reports no use of NSAIDs or anticoagulation. He is not on PPI therapy. His last colonoscopy was 10 to 12 years ago and was normal. He reports no bright red rectal bleeding, melena or hematochezia. The patient reports no abdominal pain, weight loss, change in his bowel habits or family history of colon cancer. The patient did have Hemoccult testing and Cologuard testing within the last 1 to 2 years that was normal and negative for occult blood. Procedure: Prior to the procedure, a history and physical exam was performed, and patient's medications and allergies were reviewed. The risks, benefits and alternatives of the sedation and procedure were discussed with the patient. All questions were answered and informed consent was obtained. The patient was brought to the procedure room. Patient identification and proposed procedure were verified by the physician and the nurse. The patient was placed in a left lateral decubitus position and the scope was passed under direct vision. Throughout the procedure, the patient's blood pressure, pulse, and oxygen saturations were monitored continuously. The colonoscopy was accomplished without difficulty. The patient tolerated the procedure well. Findings: On digital rectal examination there was normal rectal tone. There were no external hemorrhoids. The prostate was 2+, smooth, soft, symmetric without nodules. The colonoscope was introduced through the anal canal to the rectum and advanced to the cecum. The ileocecal valve and appendiceal orifice were identified. The scope was advanced a short distance into the ileum which appeared grossly normal. The scope was then withdrawn into the colon. The cecum, ascending and transverse colon and mucosa were grossly normal. There was an 8 mm polyp in the transverse colon removed via cold snare polypectomy. There were scattered diverticuli throughout the descending and sigmoid colon (LEFT colon). The rectum itself was normal. Upon retroflexion within the rectum there were grade 2 internal hemorrhoids. The preparation was excellent throughout with Dexter Preparation Score of 9. The cecal time was 12 minutes. Impression: 1. 8 mm transverse colon polyp 2. Left-sided diverticulosis 3. Grade 2 internal hemorrhoids Plan: I will follow-up the polyp histology. I do not feel that he will require any further preventive colonoscopy. The patient does have macrocytic anemia and prior Hemoccult testing was negative. I am not convinced that this is iron deficiency anemia or chronic GI blood loss. Macrocytic anemia means that he has overly large red blood cells and not enough normal-sized red blood cells. Persons with iron deficiency often have microcytic anemia (small blood cells). There are 2 categories of macrocytic anemia. One category is where the anemia is present because of another vitamin deficiency (most often low B12 or folate). The other category of macrocytic anemia can be when there is a problem with the bone marrow or spleen. Aside from checking B12 and folate levels, macrocytic anemia should be evaluated by a blood specialist (executive vice president) and if this persists, I would recommend hematology evaluation.
[2025-03-08 12:54] VITALS: BP 109/66; PULSE 70; RESP 18; TEMP 36.6; O2SAT 99
[2025-03-08 13:04] VITALS: BP 125/72; PULSE 60; RESP 18; O2SAT 100
[2025-03-08 13:14] VITALS: BP 121/72; PULSE 57; RESP 18; O2SAT 98
[2025-03-08 13:24] VITALS: BP 125/73; PULSE 58; RESP 17; O2SAT 98
[2025-03-08 13:53] LABS: Reticulocyte % (Auto) 1.2 % (0.9-3.2)
[2025-03-08 15:23] LABS: Folate > 20.00 ng/mL
== END 2025-03-08 13:48 | disposition home or self-care (01) ==
PROVIDERS: PCP Internal Medicine Adolescent Medicine; Visit Provider Internal Medicine Gastroenterology
PROC: 0DJD8ZZ Inspection of Lower Intestinal Tract, Via Natural or Artificial Opening Endoscopic (ICD-10-PCS; CPT 45378; principal; 2025-03-08 12:30)
DX: D50.9 Iron deficiency anemia, unspecified (principal); D12.3 Benign neoplasm of transverse colon; K57.30 Diverticulosis of large intestine without perforation or abscess without bleeding; K64.1 Second degree hemorrhoids
CPT/HCPCS: 45385; 82746; 85044; 88305; J7120

== ENCOUNTER 2025-04-07 09:16 | Outpatient (CLI) | payer MEDICARE, OTHER, SELFPAY ==
--- OUTSIDE RECORDS SUMMARY | 2025-04-07 09:19 | XMS_ITS | Data Portability ---
Author Organization [facility] ADMIN Address [address] [place] [id number] Assessment No assessment recorded. Plan of Treatment Reminders Order Date Submit Date Provider Last Modified By Organization Details Last Modified Time Details Appointments None record ed. Lab None record ed. Referral None record ed. Procedures None record ed. Surgeries None record ed. Imaging None record ed. Medication Orders None record ed. Patient TargetsNo targets recorded. Patient Instructions Encounter Date Encounter Id Patient Instructions Last Modified By Organization Details Last Modified Time 09/25/2022 [id number] I discussed with Dr. Shen and his that there were no tumors masses or lesions seen of the vocal cords. his vocal cords do appear edematous and hypervascular on flexible scope in the office today. I have asked him to observe several days of complete voice rest and that I do expect his voice to return back to baseline although it may take several weeks to do so. He will follow-up if not significantly improved in 6 weeks. [email or web address] Not available 09/25/2022 17:37:33 Reason for Referral None Reported. Procedures Surgical History Date Name Laterality Status Provider Name and Address Organization Details Recorded Time 09/25/20 22 Fiberoptic Laryngoscopy completed Alfreda Garay MD [address], [place], [address], [facility] & [place] 09/25/2022 17:35:57 Imaging Results None recorded. Procedure Notes None recorded. Medical Equipment None Reported. Allergies No known drug allergies Medications Name Sig Start Date Stop Date Status Note LastModified by Organization Details LastModified Time losartan 50 mg tablet TAKE 1/2 TABLET BY MOUTH EVERY DAY active Not Available Not Available No t Available azithromyci n 250 mg tablet TAKE 2 TABLETS BY MOUTH ON DAY 1, THEN TAKE 1 TABLET DAILY ON DAYS 2-5 -- FINISH ALL MEDICINE -- 09/25 completed Not Available Not Available Not Available ketorolac 0.5 % eye drops INSTILL ONE DROP TO THE affected eye FOUR TIMES DAILY start AFTER surgery 09/25 completed Not Available Not Available Not Available levothyroxi ne 88 mcg tablet TAKE ONE TABLET BY MOUTH EVERY DAY active Not Available Not Available No t Available alprazolam 0.5 mg tablet TAKE ONE TABLET BY MOUTH TWICE DAILY NEEDED MAY CAUSE DROWSINES S active Not Available Not Available No t Available prednisolon e acetate 1 % eye drops,suspe nsion INSTILL ONE DROP TO THE affected eye FOUR TIMES DAILY start AFTER surgery 09/25 completed Not Available Not Available Not Available benzonatate 100 mg capsule TAKE ONE CAPSULE BY MOUTH THREE TIMES DAILY NEEDED FOR cough -SWALLOW WHOLE. DO NOT CRUSH OR CHEW- active Not Available Not Available No t Available montelukast 10 mg tablet TAKE ONE TABLET BY MOUTH EVERY DAY active Not Available Not Available No t Available azelastine 137 mcg (0.1 %) nasal spray instill 2 SPRAYS IN EACH NOSTRIL TWICE DAILY 09/25 completed Not Available Not Available Not Available methylpredn isolone 4 mg tablets in a dose pack TAKE ACCORDING TO PACKAGE INSTRUCTI ONS --TAKE WITH FOOD-- -- FINISH ALL MEDICINE -- 09/25 completed Not Available Not Available Not Available fluticasone propionate 50 mcg/actuati on nasal spray,suspe nsion INSTILL 2 SPRAYS IN EACH NOSTRIL TWICE DAILY active Not Available Not Available No t Available amoxicillin 875 mg-potassiu m clavulanate 125 mg tablet TAKE ONE TABLET BY MOUTH EVERY TWELVE HOURS 09/25 completed Not Available Not Available Not Available moxifloxaci n 0.5 % eye drops INSTILL ONE DROP TO THE affected eye FOUR TIMES DAILY start 2 DAYS BEFORE surgery 09/25 completed Not Available Not Available Not Available rosuvastati n 10 mg tablet TAKE ONE TABLET BY MOUTH EVERY DAY AT BEDTIME active Not Available Not Available No t Available Symbicort 160 mcg-4.5 mcg/actuati on HFA aerosol inhaler INHALE TWO PUFFS BY MOUTH TWICE DAILY active Not Available Not Available No t Available desvenlafax ine succinate ER 50 mg tablet,exte nded release 24 hr TAKE ONE TABLET BY MOUTH EVERY DAY active Not Available Not Available No t Available azelastine 205.5 mcg (0.15 %) nasal spray instill 2 SPRAYS IN EACH NOSTRIL EVERY DAY AT BEDTIME active Not Available Not Available No t Available BinaxNOW COVID-19 Ag Self Test kit TEST DIRECTED TODAY 09/25 completed Not Available Not Available Not Available Vitals Date Recorded Body height Body mass index (BMI) Body weight Body temperature Heart rate Systolic blood pressure Diastolic blood pressure Provider Name and Address Organization Details Last Updated DateTime 2 185.42 cm 27.2 kg/m2 36708.0 3 g 94 [degF] 94 /min 146 mm[Hg] 87 mm[Hg] Emily Sanchez [facility] 2 13:52:35 Social History None recorded. Functional Status None recorded. Mental Status None recorded. Family History Nothing Reported. Medical History Condition Response Heart Problems Y Heart Disease Y Thyroid Problems Y Hypertension Y Past Encounters Encounter ID Performer Location Encounter Start Date Encounter Closed Date Diagnosis/Indication Diagnosis SNOMED-CT Code Diagnosis ICD10 Code Diagnosis Note [id number] Alfreda Garay MD [facility] [address] [address] 09/25/2022 13:41:35 09/25/2022 14:30:54 Inflammation of larynx caused by virus 303586595 J04.0 Dysphonia 53580748 R49.9 Health Concerns Section Related Observation LastModified by Organization Detai ls LastModified Time None Recorded Concern Status LastModified by Organization Details LastModified Time None Recorded Advance Directives Directive None Recorded Payers Insurance Date Sequence Insurance Name Policy Number Policy Nielsen Covered Member ID Nielsen Member ID Guarantor Name 11/03/2022 1 [place]ICARE[place]ICARE[place] Lam Agosto [id number] Lam Agosto 11/03/2022 2 A[employer] (MEDICARE SUPPLEMENT) Lam Agosto [id number] Lam Agosto Notes Date Note Type Note Provider Name and Address Organization Details Recorded Time 09/25/2022 text/html Dr. Agosto is a Patient well known to me with a previous history of sinus surgery. He has been doing well from a sinus standpoint but reports that approximately 3 weeks ago he had symptoms of an upper respiratory viral illness. Had some significant coughing. He was sick for approximately 10-12 days before he was placed on prednisone and antibiotic by the nurse practitioner at his PCP's office. He reports he has been sent concerned about some hoarseness that has been present for several weeks but seems to be worse in the last couple of days. 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 Alfreda Garay MD [address] [facility], [place], [address], [facility] [place] & [place] 09/25/2022 17:37:52
--- OUTSIDE RECORDS SUMMARY | 2025-04-07 09:19 | XMS_ITS | Clinical Summary ---
Author Organization [facility] Address [address] [address] Care Team Providers Care Roof Fitter Name Role Phone Mervin Durand MD Primary Care Provider [phone] Allergies No known active allergies Medications ALPRAZolam (Xanax) 0.5 MG tablet 8 Active rosuvastatin (Crestor) 10 MG tablet Take 1 tablet (10 mg) by mouth 1 (one) time each day. 8 Active cetirizine (ZyrTEC) 10 MG tablet Take 1 tablet (10 mg) by mouth 1 (one) time each day. Active Multiple Vitamin (multivitamin) capsule Take 1 capsule by mouth 1 (one) time each day. Active losartan (Cozaar) 50 MG tablet Take 0.5 tablets (25 mg) by mouth 1 (one) time each day. Active montelukast (Singulair) 10 MG tablet Take 1 tablet (10 mg) by mouth every night. Active levothyroxine (Synthroid, Levoxyl) 88 MCG tablet Take 1 tablet (88 mcg) by mouth 1 (one) time each day before breakfast. Active sertraline (Zoloft) 50 MG tablet Take 1 tablet (50 mg) by mouth 1 (one) time each day. 4 Active FeroSul 325 (65 Fe) MG tablet Take 1 tablet (325 mg) by mouth 1 (one) time each day with breakfast. 4 Active renal multivitamin formula (Renavite) tablet tablet Take 1 tablet by mouth 1 (one) time each day. Active levocetirizine (Xyzal Allergy 24HR) 5 MG tablet Take 1 tablet (5 mg) by mouth 1 (one) time each day. Active Active Problems Problem Noted Date Diagnosed Date Hypothyroidism 07/01/2018 Immunizations Immunization Administration Dates Next Due Influenza, high-dose, quadrivalent 08/14/2023,,08/02/2020 Influenza, injectable, quadrivalent 09/15/2019 Influenza, injectable, quadr ivalent, preservative free 09/14/2019 Moderna Covid-19 Vaccine 12y +, Daniel Protein, Preservative free 08/14/2023 Pneumococcal Conjugate PCV 13 06/05/2017 Pneumococcal Polysaccharide PPV23 08/02/2020 TD (adult), 2 Lf tetanus tox oid, preservative free, adsorbed 12/31/1996 Zoster, Recombinant 10/05/2018 Family History Medical History Relation Name Comments Cardiac disorder Brother Cardiac disorder Father Stroke Mother Relation Name Status Comments Brother Father Mother Social History Tobacco Use Types Packs/Day Years Used Date Smoking Tobacco: Never Passive Smoke Exposure: Never Smokeless Tobacco: Never Tobacco Cessation:Counseling Given: Not Answered Alcohol Use Standard Drinks/Week Comments Yes 0 (1 standard drink = 0.6 oz pure alcohol) Alcoholic Drinks/day: Occasional alcohol use Sex and Gender Information Value Date Recorded Sex Assigned at Not on file Legal Sex Male 8:31 PM EDT Gender Identity Not on file Sexual Orientation Not on file Last Filed Vital Signs Vital Sign Reading Time Taken Comments Blood Pressure 107/74 09/02/2024 9:17 AM EST Pulse 80 09/02/2024 9:17 AM EST Temperature 36.7 C (98 F) 05/31/2019 3:33 PM EDT Respiratory Rate 18 09/02/2024 9:17 AM EST Oxygen Saturation 96% 09/02/2024 9:17 AM EST Inhaled Oxygen Concentration - - Weight 83.5 kg (184 lb) 09/02/2024 9:17 AM EST Height 185.4 cm (6' 1 ) 09/02/2024 9:17 AM EST Body Mass Index 24.28 09/02/2024 9:17 AM EST Plan of Treatment Upcoming Encounters Date Type Department Care Team (Late st Contact Info) Description 09/08/2025 8:20 AM EST Office Visit [facility] [address] [place] [address] Tiffany Nails, HSE COORDINATOR [address] [address] Health Maintenance Due Date Last Done Comments [facility]-Depression Screening 1945 [facility]-Medicare Annual Wellness (AWV) 1945 [facility]-Infant/Child/Adol SDOH Screenings 1945 [facility]- SDOH Screenings 1965 [facility]-Adult SDOH Screenings 1965 [facility]-DTaP,Tdap,and Td Vaccines (1 - Tdap) 01/01/1997 12/31/1996 [facility]-Zoster Vaccines (2 of 2) 11/30/2018 10/05/2018 [facility]-RSV Vaccine: 60+ Years or (1 - 1-dose 75+ series) 2022 [id number] Vaccine ( season) 2025 08/24/2024, 08/14/2023, 08/25/2022, Additional history exists [facility]-Hepatitis C Screening Completed 09/12/2019, [facility]-Pneumococcal Vaccine: 50+ Years Completed 08/02/2020, 06/05/2017 [facility]-Influenza Vaccine Completed 08/24/2024 , 08/14/2023, 08/25/2022, Additional history exists HPV Vaccines Aged Out No longer eligi ble based on patient's age to complete this topic [facility]-HIB Vaccines Aged Out No longer e ligible based on patient's age to complete this topic [facility]-Hepatitis A Vaccines Aged Out No longer eligible based on patient's age to complete this topic [facility]-IPV Vaccines Aged Out No longer e ligible based on patient's age to complete this topic [facility]-Rotavirus Vaccines Aged Out No lo nger eligible based on patient's age to complete this topic Procedures Procedure Name Priority Date/Time Associated Diagnosis Comments ACUTE HEPATITIS PANEL Routine 09/12/2019 2:35 AM EST from Last 3 Months or Most Recently Relevant to Health Maintenance Results * Acute Hepatitis Panel (09/12/2019 2:35 AM EST) Hepatitis B Surf Antigen NEGATIVE Reference Value: Negative [facility] Hepatitis C Antibody NEGATIVE Reference Range: Negative [facility] Hepatitis A Antibody IgM NEGATIVE Reference Value: Negative [facility] External Hepatitis B Core IgM (HBCM) NEGATIVE Reference Value: Negative [facility] 09/12/2019 2:35 AM EST 09/12/2019 2:51 AM EST us Trupti Ambrocio MD LAB BLOOD ORDERABLES Final Re sult [facility]QUEST from Last 3 Months or Most Recently Relevant to Health Maintenance [place] [address] [facility] Care Teams Roof Fitter Relationship Specialty Start Date End Date Mervin Durand MD [address] [place] [address] PCP - General 03/08/21
--- OUTSIDE RECORDS SUMMARY | 2025-04-07 09:19 | XMS_ITS | Encounter Summary ---
Author Organization [facility] Address [address] [place] [address] Care Team Providers Care Ammonia Print Operator Name Role Phone Mervin Durand MD Primary Care Provider [phone] Reason for Referral * Consultation (Routine) - Closed Specialty Diagnoses / Procedures Referred By Conterica t Referred To Contact Nephrology Diagnoses Chronic kidney disease, stage II (mild) Galilea An APRN [address] [facility] [address] [place] [address] Phone: tel: fax: [facility] [address] [facility] [address] [address] Phone: tel: fax: Referral ID Status Reason Start Date Expiration Date V isits Requested Visits Authorized [id number] Closed Specialty Services Required 12/09/2023 06/09/2025 1 1 Encounter Details Date Type Department Care Team (Late st Contact Info) Description 12/09/2023 [facility] [address] [place] [address] Galilea An APRN [address] [facility] [address] [place] [address] Chronic kidney disease, stage II (mild) (Primary Dx) Social History Tobacco Use Types Packs/Day Years Used Date Smoking Tobacco: Never Alcohol Use Standard Drinks/Week Comments Yes 0 (1 standard drink = 0.6 oz pure alcohol) Alcoholic Drinks/day: Occasional alcohol use Sex and Gender Information Value Date Recorded Sex Assigned at Not on file Legal Sex Male 8:31 PM EDT Gender Identity Not on file Sexual Orientation Not on file documented as of this encounter Plan of Treatment Upcoming Encounters Date Type Department Care Team (Late st Contact Info) Description 09/08/2025 8:20 AM EST Office Visit [facility] [address] [facility] [address] [place] [phone] Tiffany Nails, SUPERVISOR FINISH END [address] [facility] [address] [place] [address] Scheduled Referrals Name Type Priority Associated Diagnoses Order Schedule Ambulatory referral to Nephrology Outpatient Referral Routine Chronic kidney disease, stage II (mild) Ordered: 12/09/2023 documented as of this encounter Visit Diagnoses Diagnosis Chronic kidney disease, stage II (mild)- Primary Chronic kidney disease, Stage II (mild) documented in this encounter Care Teams Ammonia Print Operator Relationship Specialty Start Date End Date Mervin Durand MD [address] [facility] [address] [place] [address] PCP - General 03/08/21 documented as of this encounter
[2025-04-07 09:21] LABS: Microscopic, Urine URINE MICROSCOPIC (MICROSCOPIC)
[2025-04-07 09:48] LABS: Appearance,Urine CLEAR (Clear); Basophils # 0.1 K/mm3 (0-0.2); Basophils % 0.9 % (0.1-2.0); Bilirubin,Urine Negative (Negative); Blood, Urine 1+ (Negative); Color,Urine YELLOW (Yellow); Eosinophils # 0.3 Kmm3 (0.0-0.4); Eosinophils % 4.4 % (0.1-12.0); Glucose,Urine (UA) Negative (Negative); Hematocrit 42.6 % (42.0-52.0); Hemoglobin 13.8 g/dL (14.1-18.0); Immature Granulocytes # 0.01 10^3uL; Immature Granulocytes % 0.2 %; Ketones,Urine Negative (Negative); Leukocyte Esterase,Urine Negative (Negative); Lymphocytes # 1.4 K/mm3 (0.7-4.5); Lymphocytes % 20.9 % (10-50); Mean Corpuscular HGB Conc 32.4 g/dL (31.8-35.4); Mean Corpuscular Hemoglobin 32.5 pg (27.0-31.2); Mean Corpuscular Volume 100.2 fl (80-94); Mean Platelet Volume 9.3 fl (7.4-10.4); Monocytes # 0.6 K/mm3 (0.1-1.0); Monocytes % 9.2 % (1.7-9.3); Neutrophils # 4.3 K/mm3 (1.8-7.8); Neutrophils % 64.4 % (37.0-80.0); Nitrate,Urine Negative (Negative); Nucleated Red Blood Cells # 0 10^3/uL; Nucleated Red Blood Cells % 0 %; Platelet Count 285 K/mm3 (142-424); Protein,Urine Negative (Negative); Red Blood Count 4.25 M/mm3 (4.60-6.20); Red Cell Distribution Width 12.6 % (11.5-17.5); Red Cell Distribution Width-SD 46.7 fL; Specific Gravity, Urine <= 1.005 (1.005-1.030); Urobilinogen,Urine 0.2 EU/dl (0.2); White Blood Count 6.7 K/mm3 (4.8-10.8)
[2025-04-07 09:56] LABS: Bacteria,Urine Trace /lpf; RBC,Urine Occasional #/hpf (0-3); Squamous Epithelial Cell,Urine Occasional #/hpf (0-5); WBC,Urine Occasional #/hpf (0-3)
[2025-04-07 10:32] LABS: Albumin Level 4.4 g/dl (3.5-5.0); Chloride 104 mmol/L (98-107)
[2025-04-07 10:33] LABS: Potassium 4.7 mmoL/L (3.5-5.1)
[2025-04-07 10:35] LABS: Alanine Aminotransferase 34 U/L (12-78); Aspartate Amino Transferase 44 U/L (17-59); Blood Urea Nitrogen 25 mg/dl (9-20); Estimated Glomerular Filt Rate 82 ml/min (>60); GFR (African American) 99 ML/MIN (>60)
[2025-04-07 10:36] LABS: Albumin/Globulin Ratio 1.7 (1.1-1.8); Alkaline Phosphatase 105 U/L (38-126); Bilirubin,Total 0.5 mg/dl (0.2-1.3); Calcium 9.3 mg/dl (8.4-10.2); Carbon Dioxide 27 mmol/L (22.0-30.0); Globulin 2.6 g/dL (1.3-3.2); Glucose 99 mg/dl (74-100); Iron 154 ug/dL (49-181)
[2025-04-07 10:45] LABS: Total Iron Binding Capacity 263 ug/dL (261-462)
[2025-04-07 12:29] LABS: Vitamin B12 971 pg/mL (239-931)
[2025-04-07 12:53] LABS: Anion Gap 10.7 mEq/L (5-15); Sodium 137 mmol/L (136-145)
== END 2025-04-07 23:59 | disposition home or self-care (01) ==
LOC: LAB 09:17
PROVIDERS: PCP Nurse Practitioner Family; Visit Provider Nurse Practitioner Family
DX: N18.31 Chronic kidney disease, stage 3a (principal); D64.9 Anemia, unspecified; R31.29 Other microscopic hematuria
CPT/HCPCS: 36415; 80053; 81001; 82043; 82607; 83540; 83550; 85025

== ENCOUNTER 2025-09-08 07:23 | Outpatient (CLI) | payer MEDICARE, OTHER, SELFPAY ==
--- OUTSIDE RECORDS SUMMARY | 2025-09-08 07:26 | XMS_ITS | Data Portability ---
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 I spent greater than 45 minutes [id number] time with my patient today and over half of that time was spent in counseling and coordination of care and chart review. This note was transcribed with a combination of a scribe and voice recognition software. [email or web address] Not available 11/22/2019 10:02:46 Plan of Treatment Reminders Order Date Submit Date Provider Last Modified By Organization Details Last Modified Time Details Appointments None recorded. Lab urinalysis panel, auto 2023 024 [email or web address] [facility], [facility] [address], [place], [address], 4 21:14:03 urinalysis panel, auto 2023 024 [email or web address] [facility], [address] [place], [place] [address] , [address], [place], [address], 4 13:25:44 CBC w/ auto diff 2019 020 [facility], [address] [place] [address], [address], 0 11:01:27 IgE, quantitativ e, serum 2019 020 [facility], [address] [place] [address], [address], 0 16:08:53 Referral None recorded. Procedures None recorded. Surgeries None recorded. Imaging None recorded. Medication Orders tamsulosin 0.4 mg capsule 2023 024 [facility], [address] [place] [address], [phone], 4 14:50:00 Patient TargetsNo targets recorded. Patient Instructions Encounter Date Encounter Id Patient Instructions Last Modified By Organization Details Last Modified Time 04/30/2023 [id number] 1. [email or web address] Not available 04/29 11:05:20 He is doing well after endoscopic sinus surgery and will continue topical irrigations with mupirocin, budesonide, and gentamicin and I think his long-term prognosis is excellent. Follow-up endoscopic exam will be performed in 1 month. [email or web address] Not available 04/30/2023 15:09:19 Reason for Referral None Reported. Results Created Date Observation Date Name Description Value Unit Range Abnormal Flag Note LastModifiedBy Organization Detail LastModifiedTime 11/22/19 20 11/22/2019 CBC w/ auto diff white blood cells 9.0 K/uL 3.8-10 .8 normal Not Available [facility] [address] [place] [address], [address], 11/22/2019 11:01:27 11/22/19 20 11/22/2019 CBC w/ auto diff red blood cells 4.54 M/uL 4.20-5 .80 normal Not Available [facility] [address] [place] [address], [address], 11/22/2019 11:01:27 11/22/19 20 11/22/2019 CBC w/ auto diff hemoglobin 14.7 g/dL 14.0-1 8.0 normal Not Available [facility] [address] [place] [address], [address], 11/22/2019 11:01:11/22/19 20 11/22/2019 CBC w/ auto diff hematocrit 42.8 % 40.0-5 2.0 normal Not Available [facility] [address] [place] [address], [address], 11/22/2019 11:01:11/22/19 20 11/22/2019 CBC w/ auto diff MCV 94 fL 80-100 normal Not Available [facility] [address] [place] [address], [address], 11/22/2019 11:01:11/22/19 20 11/22/2019 CBC w/ auto diff MCH 33 pg 26-35 normal Not Available [facility] [address] [place] [address], [address], 11/22/2019 11:01:11/22/19 20 11/22/2019 CBC w/ auto diff MCHC 34 g/dL 32-36 normal Not Available [facility] [address] [place] [address], [address], 11/22/2019 11:01:11/22/19 20 11/22/2019 CBC w/ auto diff RDW 14.0 % 11.0-1 5.0 normal Not Available [facility] [address] [place] [address], [address], 11/22/2019 11:01:11/22/19 20 11/22/2019 CBC w/ auto diff MPV 7.9 fL 6.2-10 .5 normal Not Available [facility] [address] [place] [address], [address], 11/22/2019 11:01:11/22/19 20 11/22/2019 CBC w/ auto diff platelet count 308 K/uL 130-40 0 normal Not Available [facility] [address] [place] [address], [address], 11/22/2019 11:01:27 11/22/19 20 11/22/2019 CBC w/ auto diff neutrophil,a bsolute 6.6 K/uL 1.6-8. 4 normal Not Available [facility] [address] [place] [address], [address], 11/22/2019 11:01:27 11/22/19 20 11/22/2019 CBC w/ auto diff lymphocyte,a bsolute 1.3 K/uL 0.4-5. 1 normal Not Available [facility] [address] [place] [address], [address], 11/22/2019 11:01:11/22/19 20 11/22/2019 CBC w/ auto diff monocyte,abs olute 0.8 K/uL 0.0-1. 2 normal Not Available [facility] [address] [place] [address], [address], 11/22/2019 11:01:27 11/22/19 20 11/22/2019 CBC w/ auto diff eosinophil,a bsolute 0.3 K/uL 0.0-0. 8 normal Not Available [facility] [address] [place] [address], [address], 11/22/2019 11:01:27 11/22/19 20 11/22/2019 CBC w/ auto diff basophil,abs olute 0.0 K/uL 0.0-0. 3 normal Not Available [facility] [address] [place] [address], [address], 11/22/2019 11:01:27 11/22/19 20 11/22/2019 CBC w/ auto diff % neutrophils 73.2 % 42.0-7 8.0 normal Not Available [facility] [address] [place] [address], [address], 11/22/2019 11:01:27 11/22/19 20 11/22/2019 CBC w/ auto diff % lymphocytes 14.7 % 11.0-4 7.0 normal Not Available [facility] [address] [place] [address], [address], 11/22/2019 11:01:27 11/22/19 20 11/22/2019 CBC w/ auto diff % monocytes 8.8 % 0.0-11 .0 normal Not Available [facility] [address] [place] [address], [address], 11/22/2019 11:01:27 11/22/19 20 11/22/2019 CBC w/ auto diff % eosinophils 2.8 % 0.0-7. 0 normal Not Available [facility] [address] [place] [address], [address], 11/22/2019 11:01:27 11/22/19 20 11/22/2019 CBC w/ auto diff % basophils 0.5 % 0.0-3. 0 normal Not Available [facility] [address] [place] [address], [address], 11/22/2019 11:01:27 11/22/19 20 11/22/2019 CBC w/ auto diff nucleated red cells 0.0 % 0.0-0. 9 normal Not Available [facility] [address] [place] [address], [address], 11/22/2019 11:01:27 11/22/19 20 11/22/2019 CBC w/ auto diff nucleated RBCs, absolute 0.00 K/uL not estab. normal Not Available [facility] [address] [place] [address], [address], 11/22/2019 11:01:27 11/22/19 20 11/23/2019 IgE, quant itati ve, serum IgE, total 18 kU/L <or=11 4 normal TEST PERFO RMED AT: [facility] [address] [place] [address] CHELSEA Tobias MD Not Available [facility] [address] [place] [address], [address], 11/23/2019 16:08:53 01/04/20 24 01/04/2024 urina lysis panel , auto Unknown Analyte Clean Catch Not Available [facility] [address] [place] [address] Rd [address], [place], [address], 01/04/2024 12:56:06 01/04/20 24 01/04/2024 urina lysis panel , auto Unknown Analyte Yellow Not Available [facility] [address], [place], [address], 01/04/2024 12:56:06 01/04/20 24 01/04/2024 urina lysis panel , auto Unknown Analyte Clear Not Available [facility] [address], [place], [address], 01/04/2024 12:56:06 01/04/20 24 01/04/2024 urina lysis panel , auto Unknown Analyte 1.000 Not Available [facility] [address], [place], [address], 01/04/2024 12:56:06 01/04/20 24 01/04/2024 urina lysis panel , auto Unknown Analyte 1.003- 1.035 Not Available [facility] [address] [place], [place] [address], [place], [address], 01/04/2024 12:56:06 01/04/20 24 01/04/2024 urina lysis panel , auto Unknown Analyte 7.0 Not Available [facility] [address], [place], [address], 01/04/2024 12:56:06 03/11/20 24 01/04/2024 urina lysis panel , auto Unknown Analyte 5.0-8. 0 Not Available [facility] [address], [place], [address], 01/04/2024 12:56:06 01/04/20 24 01/04/2024 urina lysis panel , auto Unknown Analyte Negati ve Not Available [facility] [address] [place] [address] [address], [place], [address], 01/04/2024 12:56:06 01/04/20 24 01/04/2024 urina lysis panel , auto Unknown Analyte Negati ve Not Available [facility] [address] [place] [address] Rd [address], [place], [address], 01/04/2024 12:56:06 01/04/20 24 01/04/2024 urina lysis panel , auto Unknown Analyte Negati ve Not Available [facility] [address] [place] [address] [address], [place], [address], 01/04/2024 12:56:06 01/04/20 24 01/04/2024 urina lysis panel , auto Unknown Analyte Negati ve Not Available [facility] [address] [place] [address] [address], [place], [address], 01/04/2024 12:56:06 01/04/20 24 01/04/2024 urina lysis panel , auto Unknown Analyte Negati ve Not Available [facility] [address] [place] [address] [address], [place], [address], 01/04/2024 12:56:06 01/04/20 24 01/04/2024 urina lysis panel , auto Unknown Analyte Negati ve Not Available [facility] [address], [place], [address], 01/04/2024 12:56:06 01/04/20 24 01/04/2024 urina lysis panel , auto Unknown Analyte Normal Not Available [facility] [address], [place], [address], 01/04/2024 12:56:06 01/04/20 24 01/04/2024 urina lysis panel , auto Unknown Analyte Normal Not Available [facility] [address], [place], [address], 01/04/2024 12:56:06 01/04/20 24 01/04/2024 urina lysis panel , auto Unknown Analyte Negati ve Not Available [facility] [address], [place], [address], 01/04/2024 12:56:06 01/04/20 24 01/04/2024 urina lysis panel , auto Unknown Analyte Negati ve Not Available [facility] [address], [place], [address], 01/04/2024 12:56:06 01/04/20 24 01/04/2024 urina lysis panel , auto Unknown Analyte Normal Not Available [facility] [address], [place], [address], 01/04/2024 12:56:06 01/04/20 24 01/04/2024 urina lysis panel , auto Unknown Analyte Normal 1 mg/dl Not Available [facility] [address], [place], [address], 01/04/2024 12:56:06 01/04/20 24 01/04/2024 urina lysis panel , auto Unknown Analyte Negati ve Not Available [facility] [address], [place], [address], 01/04/2024 12:56:06 01/04/2001/04/2024 urina lysis panel , auto Unknown Analyte Negati ve Not Available [facility] [address], [place], [address], 01/04/2024 12:56:06 01/04/20 24 01/04/2024 urina lysis panel , auto Unknown Analyte 50 Alok/ul Not Available [facility] [address], [place], [address], 01/04/2024 12:56:06 01/04/20 24 01/04/2024 urina lysis panel , auto Unknown Analyte Negati ve Not Available [facility] [address], [place], [address], 01/04/2024 12:56:06 04/27/20 24 04/27/2024 urina lysis panel , auto Unknown Analyte Clean Catch Not Available [facility] [address], [place], [address], 04/27/2024 14:08:30 04/27/20 24 04/27/2024 urina lysis panel , auto Unknown Analyte Yellow Not Available [facility] [address], [place], [address], 04/27/2024 14:08:30 04/27/20 24 04/27/2024 urina lysis panel , auto Unknown Analyte Clear Not Available [facility] [address], [place], [address], 04/27/2024 14:08:30 04/27/20 24 04/27/2024 urina lysis panel , auto Unknown Analyte 1.005 Not Available [facility] [address], [place], [address], 04/27/2024 14:08:30 04/27/20 24 04/27/2024 urina lysis panel , auto Unknown Analyte 1.003- 1.035 Not Available [facility] [address], [place], [address], 04/27/2024 14:08:30 04/27/20 24 04/27/2024 urina lysis panel , auto Unknown Analyte 5.0 Not Available [facility] [address], [place], [address], 04/27/2024 14:08:30 04/27/20 24 04/27/2024 urina lysis panel , auto Unknown Analyte 5.0-8. 0 Not Available [facility] [address], [place], [address], 04/27/2024 14:08:30 04/27/20 24 04/27/2024 urina lysis panel , auto Unknown Analyte Negati ve Not Available [facility] [address], [place], [address], 04/27/2024 14:08:30 04/27/20 24 04/27/2024 urina lysis panel , auto Unknown Analyte Negati ve Not Available [facility] [address], [place], [address], 04/27/2024 14:08:30 04/27/20 24 04/27/2024 urina lysis panel , auto Unknown Analyte Negati ve Not Available [facility] [address] [place] [address] [address], [place], [address], 04/27/2024 14:08:30 04/27/20 24 04/27/2024 urina lysis panel , auto Unknown Analyte Negati ve Not Available [facility] [address], [place], [address], 04/27/2024 14:08:30 04/27/20 24 04/27/2024 urina lysis panel , auto Unknown Analyte Negati ve Not Available [facility] [address], [place], [address], 04/27/2024 14:08:30 04/27/20 24 04/27/2024 urina lysis panel , auto Unknown Analyte Negati ve Not Available [facility] [address] [place] [address] [address], [place], [address], 04/27/2024 14:08:30 04/27/20 24 04/27/2024 urina lysis panel , auto Unknown Analyte Normal Not Available [facility] [address], [place], [address], 04/27/2024 14:08:30 04/27/20 24 04/27/2024 urina lysis panel , auto Unknown Analyte Normal Not Available [facility] [address], [place], [address], 04/27/2024 14:08:30 04/27/20 24 04/27/2024 urina lysis panel , auto Unknown Analyte Negati ve Not Available [facility] [address], [place], [address], 04/27/2024 14:08:30 04/27/20 24 04/27/2024 urina lysis panel , auto Unknown Analyte Negati ve Not Available [facility] [address], [place], [address], 04/27/2024 14:08:30 04/27/20 24 04/27/2024 urina lysis panel , auto Unknown Analyte Normal Not Available [facility] [address], [place], [address], 04/27/2024 14:08:30 04/27/20 24 04/27/2024 urina lysis panel , auto Unknown Analyte Normal 1 mg/dl Not Available [facility] [address], [place], [address], 04/27/2024 14:08:30 04/27/20 24 04/27/2024 urina lysis panel , auto Unknown Analyte Negati ve Not Available [facility] [address] [place] [address] [address], [place], [address], 04/27/2024 14:08:30 04/27/20 24 04/27/2024 urina lysis panel , auto Unknown Analyte Negati ve Not Available [facility] [address] [place] [address] [address], [place], [address], 04/27/2024 14:08:30 04/27/20 24 04/27/2024 urina lysis panel , auto Unknown Analyte 50 Alok/ul Not Available [facility] [address] [place] [address] [address], [place], [address], 04/27/2024 14:08:30 04/27/20 24 04/27/2024 urina lysis panel , auto Unknown Analyte Negati ve Not Available [facility] [address], [place], [address], 04/27/2024 14:08:30 Result Notes None recorded. Problems Name Problem SNOMED Code Status Onset Date Resolution Date Notes Provider Name and Address Organization Details Recorded Time Asthma 942450363 Active 020 IRMA FRANK MD [address] [place] [address], [address], [facility] 0 10:02:16 Chronic bronchitis 15693227 Active 020 IRMA FRANK MD [address] [place] [address], [address], [facility] 0 10:02:27 Solitary nodule of lung 928530130 Active 020 IRMA FRANK MD [address] [place] [address], [address], [facility] 0 10:02:29 Problem Notes None recorded. Procedures Surgical History Date Name Laterality Status Provider Name and Address Organization Details Recorded Time 07/06/20 23 Endoscopy Nasal; Biospy, Polypectomy or Debridement completed RIVAS CACERES MD [address] [place], [address], [facility] 04/30/2023 15:08:37 02/06/20 23 functional endoscopic sinus surgery completed Mildred Pascualan [facility] 04/30/2023 14:16:03 02/24/20 10 excision of spermatocele completed Mar Pop [facility] 11/22/2019 09:12:44 Imaging Results None recorded. Procedure Notes None recorded. Medical Equipment None Reported. Allergies No known drug allergies Medications Name Sig Start Date Stop Date Status Note LastModified by Organization Details LastModified Time Compound Gentamici n 80 mg - Mupirocin 20 mg - Budesonid e 1 mg capsules #60 Empty contents of 1 capsule into irrigati on device, add distille d water, irrigate twice daily 01/03 completed Not Available Not Available Not Available losartan 50 mg tablet Take 1 tablet every day by oral route. active Not Available Not Available No t Available Xanax 0.5 mg tablet Take 1 tablet 3 times a day by oral route. 01/03 completed Not Available Not Available Not Available venlafaxi ne ER 75 mg capsule,e xtended release 24 hr 01/03 completed Medicati on Descript ion: venlafax ine; Route:or al; refills: 0 Not Available Not Available Not Available tamsulosi n 0.4 mg capsule Take 1 capsule every day by oral route. 2023 active Not Available Not Available Not Avai lable loratadin e 10 mg tablet Take 1 tablet every day by oral route. 01/03 completed Not Available Not Available Not Available Crestor 10 mg tablet Take 1 tablet every day by oral route. 01/03 completed Not Available Not Available Not Available levothyro xine active Medicati on Descript ion: levothyr oxine; refills: 0 Not Available Not Available Not Available mont[address] st active Not Available Not Available Not Available doxycycli ne hyclate 11/22 completed Medicati on Descript ion: doxycycl ine; refills: 0 Not Available Not Available Not Available Symbicort 160 mcg-4.5 mcg/actua tion HFA aerosol inhaler Inhale 2 puffs twice a day by inhalati on route. 01/03 completed Not Available Not Available Not Available desvenlaf axine ER 50 mg tablet,ex tended release 24 hr Take 1 tablet every day by oral route. active Not Available Not Available No t Available Vitals Date Recorded Body weight Heart rate Oxygen saturation Oxygen saturation in Arterial blood by Pulse oximetry Respiratory rate Systolic And Diastolic Provider Name and Address Organization Details Last Updated DateTime 0 91492.0 7 g 72 /min 93 % 93 % 16 /min 120/72 mm[Hg] Mar Pop [facility] 0 09:16:30 Date Recorded Body height Body mass index (BMI) Body weight Provider Name and Address Organization Details Last Updated DateTime 01/04/2024 185.42 cm 24.4 kg/m2 97332.59 g Tran Walden [facility] 01/04/2024 12:56:36 Date Recorded Body height Body mass index (BMI) Body weight Provider Name and Address Organization Details Last Updated DateTime 04/27/2024 185.42 cm 24.4 kg/m2 40980.59 g Moon Angel [facility] 04/27/2024 14:04:45 Date Recorded Body temperature Body height Body mass index (BMI) Body weight Heart rate Systolic And Diastolic Provider Name and Address Organization Details Last Updated DateTime 3 97.2 [degF] 185.42 cm 26 kg/m2 89616.7 g 88 /min 130/83 mm[Hg] Mildred Oliva [facility] 3 14:14:38 Social History Question Answer Notes LastModified by [employer] Details LastModified Time Tobacco Smoking Status Never Smoker Mar Pop [facility] 11/22/2019 09:11:20 How Much Tobacco Do You Chew? None [email or web address] Information not available 11/22/2019 What Was The Date Of Your Most Recent Tobacco Screening? 01/04/2024 [email or web address] Information not available 01/04/2024 Sex: Male Functional Status Question Answer Note LastModified by [employer] ion Details LastModified Time Do you or have you ever used smokeless tobacco? Never used smokeless tobacco [email or web address] Information not available 11/22/2019 Do you or have you ever used e-cigarettes or vape? Never used electronic cigarettes [email or web address] Information not available 11/22/2019 Mental Status None recorded. Family History Relationship Description Onset Age of this Age Resolved Age Notes LastModified by Organization Details LastModified Time Father No current problems or disability Not available 04/30 14:15:29 Mother No current problems or disability Not available 04/30 14:15:29 Medical History Condition Response Hypertension Y Thyroid Disorder Y Immunizations Vaccine Type Date Status Note Provider Nam e and Address Organization Details Recorded Time Influenza, split virus, quadrivalent, preservative 9 completed Mar calixto [facility] 11/22/2019 09:06:59 Past Encounters Encounter ID Performer Location Encounter Start Date Encounter Closed Date Diagnosis/Indication Diagnosis SNOMED-CT Code Diagnosis ICD10 Code Diagnosis IMO Codes Diagnosis Note [id number] IRMA FRANK MD PULMONARY [address] [facility], [address] [place] [address] 11/22/2019 08:36:15 11/23/2019 08:08:46 Mediastinal lymphadenopathy 63744061 R59.0 AP window node. Substantia l improvemen t with pericardit is treatment. Repeat CT in 6 months with contrast to follow up for normalizat ion. Solitary n odule of lung 839549554 R91.1 7 mm anterior right upper lobe nodule. Reevaluate on [address] Chronic bronchitis 42729 004 J42 Bronchitis every 3-4 months. Not interested in anticholin ergics for concerns of memory loss. Continue symbicort. Checking A1AT level. TEchnicall y a suptype of COPD. Mild emphysema on CT. 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 2nd hand smoke exposure. He is to get a sputum culture in [place] with next flair up. Asthma 252442154 J45.90 9 Given frequency of flair ups, I will check Eos and IgE to see if he qualifies for biologic therapy. Pleural effusion 2468198 8 J90 Trace effusion in setting of pericardit is and pericardia l effusion with diastolic dysfunctio n. Too small to drain. [id number] RIVAS CACERES MD [place] [facility] [address] [place] [address] 04/30/2023 13:56:13 04/30/2023 15:22:00 Chronic sinusitis 71083653 J32.9 Obstructiv e sleep apnea of adult [id number] 103 G47.33 Well treated with CPAP [id number] VIOLETTA CORONA MD [facility] [address] [place] [address] 01/04/2024 12:28:54 01/04/2024 13:25:47 Benign prostatic hyperplasia with outflow obstruction 954704578 N40.1 We will try tamsulosin . He will follow-up in 6 weeks. [id number] VIOLETTA CORONA MD [facility] [address] [place] [address] 04/27/2024 13:51:41 04/27/2024 15:17:17 Benign prostatic hyperplasia with outflow obstruction 344701027 N40.1 Stable, he will follow-up in 6 months Renal insufficiency 7231 59559 N28.9 He is scheduled to see nephrology again in June. Health Concerns Section Related Observation LastModified by Organization Detai ls LastModified Time None Recorded Concern Status LastModified by Organization Details LastModified Time None Recorded Advance Directives Directive None Recorded Payers Insurance Date Sequence Insurance Name Policy Number Policy Nielsen Covered Member ID Nielsen Member ID Guarantor Name 12/15/2023 1 [employer] - GOLD PLUS (MEDICARE REPLACEMENT/A DVANTAGE - HMO) Marissa Agosto [id number] Marissa Agosto 04/26/2024 1 [place] Marissa Agosto [id number] Marissa Agosto 01/04/2024 2 [facility] Marissa Agosto [id number] Marissa Agosto 04/26/2024 2 A[employer] (MEDICARE SUPPLEMENT) Marissa Agosto [id number] Marissa Agosto 04/30/2023 1 [employer] (MEDICARE SUPPLEMENT) PLAN K Marissa Agosto [id number] Marissa Agosto 04/30/2023 1 [place] Marissa Agosto [id number] Marissa Agosto Notes Date Note Type Note Provider Name and Address Organization Details Recorded Time 11/22/2019 text/html Marissa Agosto is a 74-year-old white male who comes in for new patient evaluation of pleural effusion. He had been followed for a long time by Dr. Lopes at who is currently retiring. He had been followed for chronic bronchitis. He gets bronchitis every 3-4 months. He has a history of childhood asthma. He is a lifelong nonsmoker. 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 He is a never smoker but had secondhand smoke exposure. Back in the fall he developed a bout of bronchitis that did not improve with multiple rounds of antibiotics despite a positive strep test. He had progressive fevers and rigors and shortness of breath. He was not treated with steroids. He progressed the point that he could not breathe and so he presented to the local hospital and a CT scan of his chest showed that he had a pericardial effusion with pericardial thickening and a small pleural effusion. He was admitted for 6 days and treated with colchicine and NSAIDs and antibiotics. He got much better. He never underwent thoracentesis. Is not entirely back to baseline but no longer has significant shortness of breath, no chest pain, no fevers, no chills. Reports that he had unknown cause of liver disease in the 1980s. He has never been tested for alpha-1 antitrypsin deficiency. He says he underwent an extensive infectious disease and autoimmune and inflammatory workup while inpatient at . Data reviewed: CT chest 09/09/19: No pulmonary embolism. AP window node measuring 2.7 cm. Pericardial effusion with 2 cm pericardial thickening. 6 mm anterior right sided nodule. Mild atelectatic changes in the right middle lobe and lingular. Mild centrilobular emphysematous changes. Small bilateral effusions. CT chest 10/13/19: Reduction and pericardial thickening to 7 mm. Induction and pericardial effusion. Improvement and AP window node with a decrease in size to 16 mm. Scattered patchy-like groundglass infiltrate with tree-in-bud changes. Trace effusion. 7 mm right upper lobe nodule. Emphysematous changes. Echo 11/08/19: Mild concentric LVH, EF 55%, grade 1 diastolic dysfunction, mild right ventricular enlargement, RVSP 39. IRMA FRANK MD [address] [place] [address], [phone], [facility] 11/22/2019 14:27:51 04/30/2023 text/html ROS as noted in the HPI Marissa is a 77 year old male who comes in today for consultation at the request of for an evaluation of chronic sinusitis. He is recovering from endoscopic sinus surgery for severe chronic pansinusitis. He is using nasal irrigations with mupirocin, budesonide, and gentamicin and last week had an acute exacerbation of his chronic sinusitis and was prescribed Bactrim DS. He is feeling better He uses CPAP successfully for obstructive sleep apnea RIVAS CACERES MD [address] [place] [address], [phone], [facility] 04/30/2023 15:23:43 01/04/2024 text/html Patient is here to establish urologic care. 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 He has had obstructive urination symptoms for several years. He has nocturia 4-5 times per night. He had a recent PSA in November of 0.6. He has never taken medication for obstructive symptoms. He has some urgency as well as frequency during the daytime. He has stage II renal disease. His creatinine typically is normal and his GFR is just around 60. He has not had any urinary infections. He had a recent CT scan due to some microscopic hematuria. This showed no stones or obstruction. It did show a thickened bladder wall. VIOLETTA CORONA MD [address] [place] [address], [phone], [facility] 01/04/2024 13:26:12 04/27/2024 text/html Patient was seen in December for obstructive symptoms. I started him on tamsulosin but unfortunately had to discontinue that due to lightheadedness. Surprisingly with additional weight loss his nocturia has continued to improve. He is taking no urologic medications at this time and his nocturia is down to 1-2 times per night. In November had a PSA of 0.6. He had some questions regarding his renal function. He has some labs present. He has been seen by the nurse practitioner at [facility] working with [facility]. In review of his labs most things look to be very acceptable and his creatinine is still within normal range. He is urine today looks to be acceptable. I suggest continue observation VIOLETTA CORONA MD [address], [place], [address], [facility] 04/28/2024 21:14:40
--- OUTSIDE RECORDS SUMMARY | 2025-09-08 07:26 | XMS_ITS | Clinical Summary ---
Author Organization [facility] Address [address] [place] [address] Care Team Providers Care Certified Forklift Operator Name Role Phone Unavailable Primary Care Provider Unavailabl e Social History Tobacco Use Types Packs/Day Years Used Date Smoking Tobacco: Never Assessed Abuse Screen Answer Date Recorded Unsafe at Home or Work/School Not on file Feels Threatened by Someone? Not on file 06/2023 Does Anyone Keep You from Co ntacting Others or Doint Things Outside the Home? Not on file 08/03/2023 Physical Sign of Abuse Present Not on file 1 Housing Stability Answer Date Recorded Current Living Arrangements Not on file 06/2023 Potentially Unsafe Housing Conditions Not on ranulfo e 08/03/2023 Family and Community Support Answer Zain e Recorded Help with Day-to-Day Activities Not on file 08/03/2023 Lonely or Isolated Not on file 08/03/2023 Employment Answer Date Recorded Do you want help finding or keeping work or a woody b? Not on file 08/03/2023 Disabilities Answer Date Recorded Concentrating, Remembering, or Making Decisions Difficulty Not on file 08/03/2023 Doing Errands Independently Difficulty Not on fi le 08/03/2023 Education Answer Date Recorded Help with school or training? Not on file Preferred Language Not on file 08/03/2023 Sex and Gender Information Value Date Recorded Sex Assigned at Not on file Legal Sex Male 1:28 PM EDT Gender Identity Not on file Sexual Orientation Not on file Plan of Treatment Health Maintenance Due Date Last Done Comments ANNUAL PHYSICAL 1945 HEPATITIS C SCREENING 1945 TDAP/TD VACCINES (1 - Tdap) 1966 Pneumococcal Vaccine 50+ (1 of 1 - PCV) 1997 ZOSTER VACCINE (1 of 2) 1997 RSV Vaccine - Adults (1 - 1-dose 75+ series) 2 INFLUENZA VACCINE 05/26/2025 COVID-19 Vaccine ( season) 2025 Insurance MEDICARE A & B
--- OUTSIDE RECORDS SUMMARY | 2025-09-08 07:26 | XMS_ITS | Encounter Summary ---
Author Organization [facility] Address [address] [place] [address] Care Team Providers Care Screen Printing Machine Operator Name Role Phone Mervin Durand MD Primary Care Provider [phone] Reason for Referral * Consultation (Routine) - Closed Specialty Diagnoses / Procedures Referred By Conterica t Referred To Contact Nephrology Diagnoses Chronic kidney disease, stage II (mild) Galilea An APRN [address] [facility] [address] [place] [address] Phone: tel: fax: [facility] [address] [facility] [address], [place] [address] Phone: tel: fax: Referral ID Status Reason Start Date Expiration Date V isits Requested Visits Authorized [id number] Closed Specialty Services Required 12/09/2023 06/09/2025 1 1 Encounter Details Date Type Department Care Team (Late st Contact Info) Description 12/09/2023 Community [facility] [address] [place] [address] Galilea An APRN [address] [facility] [address] [place] [address] Chronic kidney disease, stage II (mild) (Primary [...] Care Team (Late st Contact Info) Description 10/06/2025 11:40 AM EST Office Visit [facility] [address] [facility] [address] [place] [phone] Tiffany Nails, HAND FABRIC CUTTER [address] [facility] [address] [place] [address] Scheduled Referrals Name Type Priority Associated Diagnoses Order Schedule Ambulatory referral to Nephrology Outpatient Referral Routine Chronic kidney disease, stage II (mild) Ordered: 12/09/2023 documented as of this encounter Visit Diagnoses Diagnosis Chronic kidney disease, stage II (mild)- Primary Chronic kidney disease, Stage II (mild) documented in this encounter Care Teams Screen Printing Machine Operator Relationship Specialty Start Date End Date Mervin Durand MD [address] [facility] [address] [place] [address] PCP - General 03/08/21 documented as of this encounter
--- OUTSIDE RECORDS SUMMARY | 2025-09-08 07:26 | XMS_ITS | Clinical Summary ---
Author Organization [facility] Address [address] [place] [address] Care Team Providers Care Refrigeration Mechanic Helper Name Role Phone Mervin Durand MD Primary Care Provider [phone] Allergies No known active allergies Medications ALPRAZolam [...] Description 10/06/2025 11:40 AM EST Office Visit [facility] [address] [place] [address] Tiffany Nails, CRYPTOZOOLOGIST [address] [address] Health Maintenance Due Date Last Done Comments [facility]-Depression Screening 1945 [facility]-Medicare Annual Wellness (AWV) 1945 [facility]-Infant/Child/Adol SDOH Screenings 1945 [facility]- SDOH Screenings 1965 [facility]-Adult SDOH Screenings 1965 [facility]-DTaP,Tdap,and Td Vaccines (1 - Tdap) 01/01/1997 12/31/1996 [facility]-Zoster Vaccines (2 of 2) 11/30/2018 10/05/2018 [facility]-RSV Vaccine: 60+ Years or (1 - 1-dose 75+ series) 2022 [id number] Vaccine (2024- season) 2025 08/24/2024, 08/14/2023, 08/25/2022, Additional history exists [facility]-Influenza Vaccine (#1) 06/26/202508/24, 08/14/2023, 08/25/2022, Additional history exists [facility]-Hepatitis C Screening Completed 09/12/2019, [facility]-Pneumococcal Vaccine: 50+ Years Completed 08/02/2020, 06/05/2017 HPV Vaccines Aged Out No longer eligi [...] Recently Relevant to Health Maintenance Insurance MEDICARE [facility] Care Teams Refrigeration Mechanic Helper Relationship Specialty Start Date End Date Mervin Durand MD [address] [place] [address] PCP - General 03/08/21
[2025-09-08 07:30] LABS: Microscopic, Urine URINE MICROSCOPIC (MICROSCOPIC)
[2025-09-08 08:12] LABS: Bilirubin,Urine Negative (Negative); Color,Urine YELLOW (Yellow); Glucose,Urine (UA) Negative (Negative); Hematocrit 41.1 % (42.0-52.0); Hemoglobin 13.4 g/dL (14.1-18.0); Immature Granulocytes % 0.2 %; Ketones,Urine Negative (Negative); Leukocyte Esterase,Urine Negative (Negative); Mean Corpuscular HGB Conc 32.6 g/dL (31.8-35.4); Mean Corpuscular Hemoglobin 32.8 pg (27.0-31.2); Mean Corpuscular Volume 100.5 fl (80-94); Nucleated Red Blood Cells % 0 %; PH,Urine 6.0 (5.0-8.5); Platelet Count 243 K/mm3 (142-424); Protein,Urine Negative (Negative); Red Blood Count 4.09 M/mm3 (4.60-6.20); Red Cell Distribution Width-SD 45.8 fL; Specific Gravity, Urine 1.015 (1.005-1.030); Urobilinogen,Urine 0.2 EU/dl (0.2); White Blood Count 4.8 K/mm3 (4.8-10.8)
[2025-09-08 08:36] LABS: Bacteria,Urine Trace /lpf; RBC,Urine Occasional #/hpf (0-3); Squamous Epithelial Cell,Urine Occasional #/hpf (0-5)
[2025-09-08 08:38] LABS: Alanine Aminotransferase 22 U/L (12-78); Albumin Level 4.0 g/dl (3.5-5.0); Albumin/Globulin Ratio 1.7 (1.1-1.8); Alkaline Phosphatase 73 U/L (38-126); Anion Gap 10.2 mEq/L (5-15); Aspartate Amino Transferase 29 U/L (17-59); Bilirubin,Total 0.5 mg/dl (0.2-1.3); Blood Urea Nitrogen 24 mg/dl (9-20); Calcium 9.1 mg/dl (8.4-10.2); Carbon Dioxide 28 mmol/L (22.0-30.0); Chloride 103 mmol/L (98-107); Cholesterol 188 mg/dl (140-200); Creatinine,Serum 1.20 mg/dl (0.66-1.25); Estimated Glomerular Filt Rate 59 ml/min (>60); GFR (African American) 71 ML/MIN (>60); Globulin 2.4 g/dL (1.3-3.2); Glucose 87 mg/dl (74-100); HDL Cholesterol 41 mg/dl (40-60); Iron 145 ug/dL (49-181); Potassium 4.2 mmoL/L (3.5-5.1); Sodium 137 mmol/L (136-145); Total Protein,Serum 6.4 g/dl (6.3-8.2); Triglycerides 115 mg/dl (30-150)
[2025-09-08 08:53] LABS: Total Iron Binding Capacity 232 ug/dL (261-462)
[2025-09-08 08:58] LABS: Free T4 (Free Thyroxine) 0.88 ng/dl (0.78-2.19)
[2025-09-08 09:11] LABS: Thyroid Stimulating Hormone 4.39 uIU/mL (0.465-4.68)
[2025-09-08 09:15] LABS: Ferritin 120 ng/ml (17.9-464)
== END 2025-09-08 23:59 | disposition home or self-care (01) ==
LOC: LAB 07:24
PROVIDERS: PCP Nurse Practitioner Family; Visit Provider Nurse Practitioner Family
DX: N18.31 Chronic kidney disease, stage 3a (principal); Z12.5 Encounter for screening for malignant neoplasm of prostate; D64.9 Anemia, unspecified; E03.9 Hypothyroidism, unspecified; E78.5 Hyperlipidemia, unspecified; R31.29 Other microscopic hematuria
CPT/HCPCS: 36415; 80053; 80061; 81001; 82043; 82570; 82728; 83540; 83550; 84439; 84443; 85025; G0103

== ENCOUNTER 2025-09-29 08:57 | Outpatient (CLI) | payer MEDICARE, OTHER, SELFPAY ==
[2025-09-29 09:06] LABS: Microscopic, Urine URINE MICROSCOPIC (MICROSCOPIC)
[2025-09-29 10:09] LABS: Hematocrit 40.8 % (42.0-52.0); Hemoglobin 13.4 g/dL (14.1-18.0); Mean Corpuscular HGB Conc 32.8 g/dL (31.8-35.4); Mean Corpuscular Hemoglobin 33.0 pg (27.0-31.2); Mean Corpuscular Volume 100.5 fl (80-94); Nucleated Red Blood Cells % 0 %; Platelet Count 272 K/mm3 (142-424); Red Blood Count 4.06 M/mm3 (4.60-6.20); Red Cell Distribution Width-SD 44.6 fL; White Blood Count 4.8 K/mm3 (4.8-10.8)
[2025-09-29 10:10] LABS: Bilirubin,Urine Negative (Negative); Color,Urine YELLOW (Yellow); Glucose,Urine (UA) Negative (Negative); Ketones,Urine TRACE (Negative); Leukocyte Esterase,Urine Negative (Negative); PH,Urine 6.0 (5.0-8.5); Protein,Urine Negative (Negative); Specific Gravity, Urine 1.015 (1.005-1.030); Urobilinogen,Urine 0.2 EU/dl (0.2)
[2025-09-29 10:20] LABS: Bacteria,Urine Trace /lpf
[2025-09-29 10:48] LABS: Albumin Level 4.5 g/dl (3.5-5.0); Anion Gap 14.3 mEq/L (5-15); Blood Urea Nitrogen 22 mg/dl (9-20); Calcium 9.4 mg/dl (8.4-10.2); Carbon Dioxide 25 mmol/L (22.0-30.0); Chloride 99 mmol/L (98-107); Creatinine,Serum 1.20 mg/dl (0.66-1.25); Estimated Glomerular Filt Rate 59 ml/min (>60); GFR (African American) 71 ML/MIN (>60); Glucose 106 mg/dl (74-100); Phosphorous 3.9 mg/dl (2.5-4.5); Potassium 4.3 mmoL/L (3.5-5.1); Sodium 134 mmol/L (136-145)
[2025-09-29 11:06] LABS: 25-OH Vitamin D, Total 62.6 ng/mL (30-100)
== END 2025-09-29 23:59 | disposition home or self-care (01) ==
LOC: LAB 08:59
PROVIDERS: PCP Nurse Practitioner Family; Visit Provider Nurse Practitioner
DX: N18.31 Chronic kidney disease, stage 3a (principal)
CPT/HCPCS: 36415; 80069; 81001; 82306; 82570; 83970; 84156; 85027